=== PATIENT | male | born 1965 | race Caucasian/White ===

== ENCOUNTER 2017-03-05 11:37 | Inpatient (IN) | payer OTHER ==
[2017-03-05 12:28] VITALS: BMI 29.2
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
[2017-03-05] MEDS ORDERED: LOPERAMIDE HCL 2 MG CAPSULE PO PRN (17:07)
[2017-03-05] MEDS ORDERED: MENTHOL/PHENOL 1 EACH UD MM PRN (17:07)
[2017-03-05] MEDS ORDERED: hydrOXYzine PAMOATE 50 MG CAPSULE (FP) PO PRN (17:07)
[2017-03-05] MEDS ORDERED: MAG HYDROX/AL HYDROX/SIMETH 30 ML UNIT-DOSE CUP PO PRN (17:07)
[2017-03-05] MEDS ORDERED: IBUPROFEN 400 MG TABLET (FP) PO PRN (17:07)
[2017-03-05] MEDS ORDERED: MAGNESIUM CITRATE 300 ML BOTTLE PO PRN (17:07)
[2017-03-05] MEDS ORDERED: guaiFENesin/D-METHORPHAN HB 10 ML UNIT-DOSE CUPS PO PRN (17:07)
[2017-03-05] MEDS ORDERED: ACETAMINOPHEN 325 MG TABLET (FP) PO PRN (17:07)
[2017-03-05] MEDS ORDERED: MAGNESIUM HYDROX 2400MG/30ML ORAL SUSPENSION 30 ML CUP PO PRN (17:07)
[2017-03-05] MEDS ORDERED: chlordiazePOXIDE HCL 25 MG CAPSULE PO PRN (17:07)
[2017-03-05] MEDS ORDERED: P-EPHED 60MG/TRIPROLIDI 2.5MG TABLET PO PRN (17:07)
[2017-03-05] MEDS ORDERED: ALBUTEROL SO4 18 GM HFA INHALER IH PRN (17:09)
[2017-03-05] MEDS ORDERED: chlordiazePOXIDE HCL 25 MG CAPSULE PO ONE (17:30)
[2017-03-05] MEDS: LISINOPRIL 10 MG TABLET (FP) PO SCH (18:47)
[2017-03-05] MEDS: metFORMIN HCL 500 MG TABLET (FP) PO SCH (18:47)
[2017-03-05] MEDS: chlordiazePOXIDE HCL 25 MG CAPSULE PO SCH ×2 (18:50→22:33)
[2017-03-05 20:54] LABS: URINE APPEARANCE CLEAR; URINE BILIRUBIN NEGATIVE (NEGATIVE); URINE BLOOD 1+ (NEGATIVE); URINE COLOR LTYELLOW; URINE GLUCOSE (UA) NEGATIVE (NEGATIVE); URINE KETONE 2+ (NEGATIVE); URINE NITRITE NEGATIVE (NEGATIVE); URINE PROTEIN NEGATIVE (NEGATIVE); URINE UROBILINOGEN NEGATIVE mg/dL (0.2-1.0)
[2017-03-05 21:04] LABS: URINE MUCUS RARE; URINE RBC 1; URINE WBC 1
[2017-03-05] MEDS: THIAMINE HCL 100 MG TABLET (FP) PO SCH (22:32)
[2017-03-05] MEDS: BUDESONIDE/FORMETEROL FUMARATE 160/4.5 mcg INHALER IH SCH (22:34)
[2017-03-06 00:40] LABS: HIV 1 & 2 AB NEGATIVE; HIV 1 AGp24 NEGATIVE
[2017-03-06] MEDS: chlordiazePOXIDE HCL 25 MG CAPSULE PO SCH ×4 (05:07→22:30)
[2017-03-06] MEDS: metFORMIN HCL 500 MG TABLET (FP) PO SCH ×2 (07:30→17:25)
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
[2017-03-06 10:27] LABS: MCH 30.8 pg (25.7-33.7)
[2017-03-06 10:29] LABS: MCHC 33.2 g/dl (32.0-35.9); MEAN CELL VOLUME 92.7 fl (80-96); MEAN PLT VOLUME 8.1 fl (7.5-11.1); PLATELET COUNT 209 K/MM3 (134-434); RDW 15.9 % (11.9-15.9); WHITE BLOOD COUNT 5.8 K/mm3 (4.0-10.0)
[2017-03-06 10:53] LABS: ALBUMIN 3.7 g/dl (3.4-5.0); ALK PHOS 47 U/L (45-117); ANION GAP 12 (8-16); BILIRUBIN,TOTAL 0.8 mg/dL (0.2-1.0); CALCIUM 8.5 mg/dL (8.5-10.1); CO2 24 mmol/L (21-32); CREATININE 1.3 mg/dL (0.7-1.3); GLUCOSE,RANDOM 149 mg/dL (74-106); SGOT/AST 38 U/L (15-37); SGPT/ALT 25 U/L (12-78); TOT PROT 7.1 g/dl (6.4-8.2)
[2017-03-06] MEDS: PRENATAL VITAMINS W/ FOLIC ACID TABLET (FP) PO SCH (10:55)
[2017-03-06] MEDS: LISINOPRIL 10 MG TABLET (FP) PO SCH (10:55)
[2017-03-06] MEDS: BUDESONIDE/FORMETEROL FUMARATE 160/4.5 mcg INHALER IH SCH ×2 (10:57→22:31)
--- NOTE | 2017-03-06 15:25 | PN ---
[facility] CIWA - CIWA Score Nausea/Vomitin-No Nausea/No Vomiting Muscle Tremors: 4-Moderate,w/Arms Extend Anxiety: 4-Mod. Anxious/Guarded Agitation: 2 Paroxysmal Sweats: No Perspiration Orientation: 0-Oriented Tacttile Disturbances: 3-Moderate Itch/Numb/Burn Auditory Disturbances: 0-None Visual Disturbances: 3-Moderate Sensitivity Headache: 0-None Present CIWA-Ar Total Score: 16 S Progress Note (SOAP) Subjective: Tremors, Fatigue, Anxious. Objective: PT. A & O X 3, OBSERVED AMBULATING ON UNIT. NO ACUTE DISTRESS. 03/06/17 15:22 Vital Signs Temperature 97.5 F L 03/06/17 14:28 Pulse Rate 84 03/06/17 14:28 Respiratory Rate 18 03/06/17 14:28 Blood Pressure 107/75 03/06/17 14:28 O2 Sat by Pulse Oximetry (%) Laboratory Tests 03/05/17 03/05/17 03/05/17 13:06 14:00 19:00 WBC RBC Hgb Hct MCV MCH MCHC RDW Plt Count MPV Sodium Potassium Chloride Carbon Dioxide Anion Gap BUN Creatinine Creat Clearance w eGFR POC Glucometer 148 Random Glucose Calcium Total Bilirubin AST ALT Alkaline Phosphatase Total Protein Albumin Urine Color Ltyellow Urine Appearance Clear Urine pH 5.0 Ur Specific [place] 1.020 Urine Protein Negative Urine Glucose (UA) Negative Urine Ketones 2+ H Urine Blood 1+ H Urine Nitrite Negative Urine Bilirubin Negative Urine Urobilinogen Negative Urine WBC (Auto) 1 Urine RBC (Auto) 1 Ur Epithelial Cells Rare Urine Mucus Rare RPR Titer HIV 1&2 Antibody Screen Negative HIV P24 Antigen Negative 03/06/17 03/06/17 03/06/17 05:08 06:00 06:00 WBC 5.8 RBC 4.34 Hgb 13.4 Hct 40.3 MCV 92.7 MCH 30.8 MCHC 33.2 RDW 15.9 Plt Count 209 MPV 8.1 Sodium 138 Potassium 4.1 Chloride 102 Carbon Dioxide 24 Anion Gap 12 BUN 18 D Creatinine 1.3 Creat Clearance w eGFR 58.67 POC Glucometer 105 Random Glucose 149 H D Calcium 8.5 Total Bilirubin 0.8 D AST 38 H D ALT 25 Alkaline Phosphatase 47 Total Protein 7.1 Albumin 3.7 Urine Color Urine Appearance Urine pH Ur Specific [place] Urine Protein Urine Glucose (UA) Urine Ketones Urine Blood Urine Nitrite Urine Bilirubin Urine Urobilinogen Urine WBC (Auto) Urine RBC (Auto) Ur Epithelial Cells Urine Mucus RPR Titer HIV 1&2 Antibody Screen HIV P24 Antigen 03/06/17 06:00 WBC RBC Hgb Hct MCV MCH MCHC RDW Plt Count MPV Sodium Potassium Chloride Carbon Dioxide Anion Gap BUN Creatinine Creat Clearance w eGFR POC Glucometer Random Glucose Calcium Total Bilirubin AST ALT Alkaline Phosphatase Total Protein Albumin Urine Color Urine Appearance Urine pH Ur Specific [place] Urine Protein Urine Glucose (UA) Urine Ketones Urine Blood Urine Nitrite Urine Bilirubin Urine Urobilinogen Urine WBC (Auto) Urine RBC (Auto) Ur Epithelial Cells Urine Mucus RPR Titer Nonreactive HIV 1&2 Antibody Screen HIV P24 Antigen LABS NOTED. HCV AB RESULT PENDING. 03/06/17 15:24 Assessment: 03/06/17 15:23 WITHDRAWAL SYMPTOMS. Plan: CONTINUE DETOX. INCREASE DAILY PO FLUID INTAKE.
[2017-03-06 16:08] LABS: URINE LEUK ESTERASE Negative (NEGATIVE)
[2017-03-06] MEDS: THIAMINE HCL 100 MG TABLET (FP) PO SCH (22:31)
[2017-03-06] MEDS: QUEtiapine FUMARATE 50 MG TABLET PO SCH (22:31)
[2017-03-07] MEDS: chlordiazePOXIDE HCL 25 MG CAPSULE PO SCH ×2 (06:22→10:03)
[2017-03-07] MEDS: metFORMIN HCL 500 MG TABLET (FP) PO SCH ×2 (06:49→17:07)
[2017-03-07] MEDS: BUDESONIDE/FORMETEROL FUMARATE 160/4.5 mcg INHALER IH SCH ×2 (10:03→22:22)
[2017-03-07] MEDS: LISINOPRIL 10 MG TABLET (FP) PO SCH (10:03)
[2017-03-07] MEDS: PRENATAL VITAMINS W/ FOLIC ACID TABLET (FP) PO SCH (10:03)
--- NOTE | 2017-03-07 16:57 | PN ---
S CIWA - CIWA Score Nausea/Vomitin Muscle Tremors: 3 Anxiety: 3 Agitation: 2 Paroxysmal Sweats: 3 Orientation: 0-Oriented Tacttile Disturbances: 1-Very Mild Itch/Numbness Auditory Disturbances: 0-None Visual Disturbances: 0-None Headache: 2-Mild CIWA-Ar Total Score: 16 S Progress Note (SOAP) Subjective: Sweating, anxious, interrupted sleep Objective: 03/07/17 16:54 Last Vital Signs Temp Pulse Resp BP Pulse Ox 97.7 F 93 H 20 131/81 03/07/17 14:42 03/07/17 14:42 03/07/17 14:42 03/07/17 14:42 Laboratory Tests 03/05/17 03/05/17 03/05/17 13:06 14:00 19:00 WBC RBC Hgb Hct MCV MCH MCHC RDW Plt Count MPV Sodium Potassium Chloride Carbon Dioxide Anion Gap BUN Creatinine Creat Clearance w eGFR POC Glucometer 148 Random Glucose Calcium Total Bilirubin AST ALT Alkaline Phosphatase Total Protein Albumin Urine Color Ltyellow Urine Appearance Clear Urine pH 5.0 Ur Specific [place] 1.020 Urine Protein Negative Urine Glucose (UA) Negative Urine Ketones 2+ H Urine Blood 1+ H Urine Nitrite Negative Urine Bilirubin Negative Urine Urobilinogen Negative Ur Leukocyte Esterase Negative Urine WBC (Auto) 1 Urine RBC (Auto) 1 Ur Epithelial Cells Rare Urine Mucus Rare RPR Titer Hepatitis C Antibody HIV 1&2 Antibody Screen Negative HIV P24 Antigen Negative 03/06/17 03/06/17 03/06/17 05:08 06:00 06:00 WBC 5.8 RBC 4.34 Hgb 13.4 Hct 40.3 MCV 92.7 MCH 30.8 MCHC 33.2 RDW 15.9 Plt Count 209 MPV 8.1 Sodium Potassium Chloride Carbon Dioxide Anion Gap BUN Creatinine Creat Clearance w eGFR POC Glucometer 105 Random Glucose Calcium Total Bilirubin AST ALT Alkaline Phosphatase Total Protein Albumin Urine Color Urine Appearance Urine pH Ur Specific [place] Urine Protein Urine Glucose (UA) Urine Ketones Urine Blood Urine Nitrite Urine Bilirubin Urine Urobilinogen Ur Leukocyte Esterase Urine WBC (Auto) Urine RBC (Auto) Ur Epithelial Cells Urine Mucus RPR Titer Hepatitis C Antibody <0.1 HIV 1&2 Antibody Screen HIV P24 Antigen 03/06/17 03/06/17 03/06/17 06:00 06:00 16:40 WBC RBC Hgb Hct MCV MCH MCHC RDW Plt Count MPV Sodium 138 Potassium 4.1 Chloride 102 Carbon Dioxide 24 Anion Gap 12 BUN 18 D Creatinine 1.3 Creat Clearance w eGFR 58.67 POC Glucometer 93 Random Glucose 149 H D Calcium 8.5 Total Bilirubin 0.8 D AST 38 H D ALT 25 Alkaline Phosphatase 47 Total Protein 7.1 Albumin 3.7 Urine Color Urine Appearance Urine pH Ur Specific [place] Urine Protein Urine Glucose (UA) Urine Ketones Urine Blood Urine Nitrite Urine Bilirubin Urine Urobilinogen Ur Leukocyte Esterase Urine WBC (Auto) Urine RBC (Auto) Ur Epithelial Cells Urine Mucus RPR Titer Nonreactive Hepatitis C Antibody HIV 1&2 Antibody Screen HIV P24 Antigen 03/07/17 03/07/17 06:20 16:19 WBC RBC Hgb Hct MCV MCH MCHC RDW Plt Count MPV Sodium Potassium Chloride Carbon Dioxide Anion Gap BUN Creatinine Creat Clearance w eGFR POC Glucometer 130 104 Random Glucose Calcium Total Bilirubin AST ALT Alkaline Phosphatase Total Protein Albumin Urine Color Urine Appearance Urine pH Ur Specific [place] Urine Protein Urine Glucose (UA) Urine Ketones Urine Blood Urine Nitrite Urine Bilirubin Urine Urobilinogen Ur Leukocyte Esterase Urine WBC (Auto) Urine RBC (Auto) Ur Epithelial Cells Urine Mucus RPR Titer Hepatitis C Antibody HIV 1&2 Antibody Screen HIV P24 Antigen Labs noted: UA shows 1+ blood Assessment: 03/07/17 16:56 Withdrawal symptoms Noted with microscopic hematuria Plan: Continue detox Microscopic hematuria: encouraged to drink lots of water, repeat UA
[2017-03-07] MEDS: chlordiazePOXIDE 5 MG CAPSULE PO SCH ×2 (17:07→22:21)
[2017-03-07] MEDS ORDERED: QUEtiapine FUMARATE 25 MG TABLET (FP) ONE (21:06)
[2017-03-07] MEDS: THIAMINE HCL 100 MG TABLET (FP) PO SCH (22:21)
[2017-03-07] MEDS: QUEtiapine FUMARATE 50 MG TABLET PO SCH (22:21)
[2017-03-08] MEDS: chlordiazePOXIDE 5 MG CAPSULE PO SCH ×2 (06:08→10:17)
[2017-03-08] MEDS: metFORMIN HCL 500 MG TABLET (FP) PO SCH ×2 (06:08→17:31)
--- NOTE | 2017-03-08 09:30 | EKG ---
Test Reason : Blood Pressure : / mmHG Vent. Rate : 066 BPM Atrial Rate : 066 BPM P-R Int : 126 ms QRS Dur : 106 ms QT Int : 392 ms P-R-T Axes : 073 019 047 degrees QTc Int : 410 ms NORMAL SINUS RHYTHM INCOMPLETE RIGHT BUNDLE BRANCH BLOCK BORDERLINE ECG NO PREVIOUS ECGS AVAILABLE Confirmed by LEONEL STANLEY, KERRY ([id number]) on 03/08/2017 9:29:57 AM Referred By: Confirmed By:KERRY CASTANEAD MD
[2017-03-08] MEDS: PRENATAL VITAMINS W/ FOLIC ACID TABLET (FP) PO SCH (10:17)
[2017-03-08] MEDS: BUDESONIDE/FORMETEROL FUMARATE 160/4.5 mcg INHALER IH SCH ×2 (10:17→22:59)
[2017-03-08] MEDS: LISINOPRIL 10 MG TABLET (FP) PO SCH (10:17)
--- NOTE | 2017-03-08 11:05 | PN ---
[facility] Progress Note (SOAP) Subjective: TREMORS,ANXIETY,IRRITABILITY,SWEATS, FATIGUE. Objective: 03/08/17 11:04 Vital Signs Temperature 98 F 03/08/17 09:27 Pulse Rate 79 03/08/17 09:27 Respiratory Rate 18 03/08/17 09:27 Blood Pressure 124/81 03/08/17 09:27 O2 Sat by Pulse Oximetry (%) Laboratory Last Values WBC 5.8 K/mm3 (4.0-10.0) 03/06/17 06:00 RBC 4.34 M/mm3 (4.00-5.60) 03/06/17 06:00 Hgb 13.4 GM/dL (11.7-16.9) 03/06/17 06:00 Hct 40.3 % (35.4-49) 03/06/17 06:00 MCV 92.7 fl (80-96) 03/06/17 06:00 MCH 30.8 pg (25.7-33.7) 03/06/17 06:00 MCHC 33.2 g/dl (32.0-35.9) 03/06/17 06:00 RDW 15.9 % (11.9-15.9) 03/06/17 06:00 Plt Count 209 K/MM3 (134-434) 03/06/17 06:00 MPV 8.1 fl (7.5-11.1) 03/06/17 06:00 Sodium 138 mmol/L (136-145) 03/06/17 06:00 Potassium 4.1 mmol/L (3.5-5.1) 03/06/17 06:00 Chloride 102 mmol/L (98-107) 03/06/17 06:00 Carbon Dioxide 24 mmol/L (21-32) 03/06/17 06:00 Anion Gap 12 (8-16) 03/06/17 06:00 BUN 18 mg/dL (7-18) D 03/06/17 06:00 Creatinine 1.3 mg/dL (0.7-1.3) 03/06/17 06:00 Creat Clearance w eGFR 58.67 (>60) 03/06/17 06:00 POC Glucometer 124 UNITS (80-120) 03/08/17 06:08 Random Glucose 149 mg/dL (74-106) H D 03/06/17 06:00 Calcium 8.5 mg/dL (8.5-10.1) 03/06/17 06:00 Total Bilirubin 0.8 mg/dL (0.2-1.0) D 03/06/17 06:00 AST 38 U/L (15-37) H D 03/06/17 06:00 ALT 25 U/L (12-78) 03/06/17 06:00 Alkaline Phosphatase 47 U/L (45-117) 03/06/17 06:00 Total Protein 7.1 g/dl (6.4-8.2) 03/06/17 06:00 Albumin 3.7 g/dl (3.4-5.0) 03/06/17 06:00 Urine Color Ltyellow 03/05/17 19:00 Urine Appearance Clear 03/05/17 19:00 Urine pH 5.0 (5.0-8.0) 03/05/17 19:00 Ur Specific [place] 1.020 (1.001-1.035) 03/05/17 19:00 Urine Protein Negative (NEGATIVE) 03/05/17 19:00 Urine Glucose (UA) Negative (NEGATIVE) 03/05/17 19:00 Urine Ketones 2+ (NEGATIVE) H 03/05/17 19:00 Urine Blood 1+ (NEGATIVE) H 03/05/17 19:00 Urine Nitrite Negative (NEGATIVE) 03/05/17 19:00 Urine Bilirubin Negative (NEGATIVE) 03/05/17 19:00 Urine Urobilinogen Negative mg/dL (0.2-1.0) 03/05/17 19:00 Ur Leukocyte Esterase Negative (NEGATIVE) 03/05/17 19:00 Urine WBC (Auto) 1 03/05/17 19:00 Urine RBC (Auto) 1 03/05/17 19:00 Ur Epithelial Cells Rare /hpf (FEW) 03/05/17 19:00 Urine Mucus Rare 03/05/17 19:00 RPR Titer Nonreactive (NONREACTIVE) 03/06/17 06:00 Hepatitis C Antibody <0.1 s/co ratio (0.0-0.9) 03/06/17 06:00 HIV 1&2 Antibody Screen Negative 03/05/17 14:00 HIV P24 Antigen Negative 03/05/17 14:00 Assessment: 03/08/17 11:04 WITHDRAWAL SX Plan: WITHDRAWAL SX
[2017-03-08 12:08] LABS: URINE APPEARANCE CLEAR; URINE BILIRUBIN NEGATIVE (NEGATIVE); URINE BLOOD NEGATIVE (NEGATIVE); URINE COLOR LTYELLOW; URINE GLUCOSE (UA) NEGATIVE (NEGATIVE); URINE KETONE NEGATIVE (NEGATIVE); URINE NITRITE NEGATIVE (NEGATIVE); URINE PROTEIN NEGATIVE (NEGATIVE); URINE UROBILINOGEN NEGATIVE mg/dL (0.2-1.0)
[2017-03-08] MEDS: chlordiazePOXIDE HCL 10 MG CAPSULE PO SCH ×2 (17:31→23:00)
[2017-03-08 17:37] LABS: URINE LEUK ESTERASE Negative (NEGATIVE)
[2017-03-08 22:08] VITALS: TEMP 96.8
[2017-03-08] MEDS: THIAMINE HCL 100 MG TABLET (FP) PO SCH (22:59)
[2017-03-08] MEDS: QUEtiapine FUMARATE 50 MG TABLET PO SCH (22:59)
[2017-03-09] MEDS: chlordiazePOXIDE HCL 10 MG CAPSULE PO SCH (06:01)
[2017-03-09 06:30] VITALS: BP 99/63; PULSE 76
[2017-03-09] MEDS: metFORMIN HCL 500 MG TABLET (FP) PO SCH (07:52)
--- NOTE | 2017-03-09 09:07 | DS ---
[facility] Detox Discharge Summary Admission Date: 03/05/17 Discharge Date: 03/09/17 - History Present History: Alcohol Dependence, Cocaine Dependence Additional Comments: PT COMPLETED DETOX. ALERT O X 3. NAD. PT TO FOLLOW UP WITH PCP FOR MANAGEMENT OF HIS COMORBID CONDITIONS. Pertinent Past History: HTN HYPERCHOLESTEROLEMIA DM ASTHMA - Physical Exam Results Vital Signs: Vital Signs Temperature 96.8 F L 03/09/17 06:29 Pulse Rate 76 03/09/17 06:29 Respiratory Rate 16 03/09/17 06:29 Blood Pressure 99/63 03/09/17 06:29 O2 Sat by Pulse Oximetry (%) Pertinent Admission Physical Exam Findings: WITHDRAWAL SX - Treatment Hospital Course: Detox Protocol Followed, Detoxed Safely, Responded well, Discharged Condition Good, Rehab Referral Accepted Patient has Accepted a Rehab Referral to: [facility] - Medication Discharge Medications: Ambulatory Orders Budesonide/Formeterol Fumarate [SYMBICORT 160/4.5mcg -] 1 inh PO BID #1 inhaler 12/13/15 Albuterol Sulfate [Proventil HFA Inhaler -] 2 inh PO QID PRN 03/05/17 Lisinopril 10 mg PO DAILY #30 tablet 03/09/17 Metformin HCl [Glucophage -] 500 mg PO BID #60 tablet 03/09/17 - Diagnosis (1) Alcohol dependence with uncomplicated withdrawal Status: Acute (2) Cocaine dependence, uncomplicated Status: Acute (3) DM Diabetes mellitus type 2 Status: Chronic (4) Essential hypertension Status: Chronic (5) Hypercholesterolemia Status: Chronic (6) Asthma Status: Chronic - AMA Did Patient Leave Against Medical Advice: No
== END 2017-03-09 10:58 | disposition home or self-care (01) | DRG 774 ==
LOC: YASAS 11:37 → Y3N 14:27
PROVIDERS: ADMIT Internal Medicine; ATTEND Internal Medicine
PROC: HZ2ZZZZ Detoxification Services for Substance Abuse Treatment (ICD-10-PCS; principal; 2017-03-05)
DX: F10.230 Alcohol dependence with withdrawal, uncomplicated (principal); F14.20 Cocaine dependence, uncomplicated; F33.9 Major depressive disorder, recurrent, unspecified; F19.24 Other psychoactive substance dependence with psychoactive substance-induced mood disorder; F19.282 Other psychoactive substance dependence with psychoactive substance-induced sleep disorder; I10 Essential (primary) hypertension; E78.00 Pure hypercholesterolemia, unspecified; E11.9 Type 2 diabetes mellitus without complications; Z79.84 Long term (current) use of oral hypoglycemic drugs; Z91.5 Personal history of self-harm; Z87.828 Personal history of other (healed) physical injury and trauma
CPT/HCPCS: 36415; 80053; 81003; 81015; 85027; 86593; 86803; 87389; 93005; 93010

== ENCOUNTER 2018-01-29 09:00 | Inpatient (IN) | payer OTHER ==
[2018-01-29 09:40] VITALS: BMI 29.0
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
[2018-01-29] MEDS ORDERED: MENTHOL/PHENOL 1 EACH UD MM PRN (10:27)
[2018-01-29] MEDS ORDERED: MAGNESIUM CITRATE 300 ML BOTTLE PO PRN (10:27)
[2018-01-29] MEDS ORDERED: chlordiazePOXIDE HCL 25 MG CAPSULE PO PRN (10:27)
[2018-01-29] MEDS ORDERED: MAG HYDROX/AL HYDROX/SIMETH 30 ML UNIT-DOSE CUP PO PRN (10:27)
[2018-01-29] MEDS ORDERED: LOPERAMIDE HCL 2 MG CAPSULE PO PRN (10:27)
[2018-01-29] MEDS ORDERED: ACETAMINOPHEN 325 MG TABLET (FP) PO PRN (10:27)
[2018-01-29] MEDS ORDERED: hydrOXYzine PAMOATE 25 MG CAPSULE (FP) PO PRN (10:27)
[2018-01-29] MEDS ORDERED: guaiFENesin/D-METHORPHAN HB 10 ML UNIT-DOSE CUPS PO PRN (10:27)
[2018-01-29] MEDS ORDERED: IBUPROFEN 400 MG TABLET (FP) PO PRN (10:27)
[2018-01-29] MEDS ORDERED: MAGNESIUM HYDROX 2400MG/30ML ORAL SUSPENSION 30 ML CUP PO PRN (10:27)
[2018-01-29] MEDS ORDERED: P-EPHED 60MG/TRIPROLIDI 2.5MG TABLET PO PRN (10:27)
[2018-01-29] MEDS ORDERED: ALBUTEROL SO4 8 GM HFA INHALER IH PRN (10:32)
[2018-01-29] MEDS ORDERED: chlordiazePOXIDE HCL 25 MG CAPSULE PO ONE (12:45)
[2018-01-29] MEDS: BUDESONIDE/FORMETEROL FUMARATE 160/4.5 mcg INHALER IH SCH ×2 (13:56→22:22)
[2018-01-29] MEDS: metFORMIN HCL 500 MG TABLET (FP) PO SCH (17:37)
[2018-01-29] MEDS: chlordiazePOXIDE HCL 25 MG CAPSULE PO SCH ×2 (17:37→22:21)
[2018-01-29 18:56] LABS: URINE APPEARANCE TURBID; URINE BILIRUBIN NEGATIVE (<2.0 mg/dL); URINE COLOR YELLOW; URINE GLUCOSE (UA) NEGATIVE (NEGATIVE); URINE KETONE NEGATIVE (NEGATIVE); URINE LEUK ESTERASE NEGATIVE (NEGATIVE); URINE NITRITE NEGATIVE (NEGATIVE); URINE PROTEIN NEGATIVE (NEGATIVE); URINE UROBILINOGEN NEGATIVE mg/dL (0.2-1.0)
[2018-01-29 19:14] LABS: CALCIUM OXALATE CRYSTALS RARE /hpf (NONE SEEN); URINE HYALINE CAST 9 /lpf
[2018-01-29] MEDS ORDERED: MELATONIN 5 MG TABLETS PO PRN (22:00)
[2018-01-29] MEDS: ATORVASTATIN CA 10 MG TABLET (FP) PO SCH (22:21)
[2018-01-29] MEDS: THIAMINE HCL 100 MG TABLET (FP) PO SCH (22:21)
[2018-01-30] MEDS: chlordiazePOXIDE HCL 25 MG CAPSULE PO SCH ×4 (05:13→22:25)
[2018-01-30] MEDS: metFORMIN HCL 500 MG TABLET (FP) PO SCH ×2 (06:44→17:53)
--- NOTE | 2018-01-30 10:50 | EKG ---
Test Reason : Blood Pressure : / mmHG Vent. Rate : 059 BPM Atrial Rate : 059 BPM P-R Int : 124 ms QRS Dur : 102 ms QT Int : 404 ms P-R-T Axes : 074 013 039 degrees QTc Int : 399 ms SINUS BRADYCARDIA INCOMPLETE RIGHT BUNDLE BRANCH BLOCK WHEN COMPARED WITH ECG OF 05-MAR-2017 19:41, NO SIGNIFICANT CHANGE WAS FOUND Confirmed by JUS SANTILLAN MD ([id number]) on 01/30/2018 10:49:38 AM Referred By: Lena Salas Confirmed By:JUS SANTILLAN MD
[2018-01-30] MEDS: BUDESONIDE/FORMETEROL FUMARATE 160/4.5 mcg INHALER IH SCH ×2 (11:04→22:26)
[2018-01-30] MEDS: PRENATAL VITAMINS W/ FOLIC ACID TABLET (FP) PO SCH (11:04)
[2018-01-30] MEDS: LISINOPRIL 10 MG TABLET (FP) PO SCH (11:04)
[2018-01-30 11:10] LABS: HEMATOCRIT 38.8 % (35.4-49); HEMOGLOBIN 12.9 GM/dL (11.7-16.9); MCH 29.9 pg (25.7-33.7); MCHC 33.2 g/dl (32.0-35.9); MEAN CELL VOLUME 90.2 fl (80-96); MEAN PLT VOLUME 8.3 fl (7.5-11.1); PLATELET COUNT 206 K/MM3 (134-434); RDW 14.5 % (11.9-15.9); WHITE BLOOD COUNT 4.9 K/mm3 (4.0-10.0)
[2018-01-30 11:35] LABS: ALBUMIN 3.2 g/dl (3.4-5.0); ALK PHOS 61 U/L (45-117); ANION GAP 4 MMOL/L (8-16); BILIRUBIN,TOTAL 0.2 mg/dL (0.2-1); BLOOD UREA NITROGEN 18 mg/dL (7-18); CALCIUM 8.7 mg/dL (8.5-10.1); CHLORIDE 110 mmol/L (98-107); CO2 28 mmol/L (21-32); CREATININE 1.2 mg/dL (0.55-1.3); GLUCOSE,RANDOM 80 mg/dL (74-106); SGOT/AST 15 U/L (15-37); SGPT/ALT 19 U/L (13-61); SODIUM 142 mmol/L (136-145); TOT PROT 6.4 g/dl (6.4-8.2)
--- NOTE | 2018-01-30 13:35 | PN ---
S CIWA - CIWA Score Nausea/Vomitin Muscle Tremors: 4-Moderate,w/Arms Extend Anxiety: 4-Mod. Anxious/Guarded Agitation: 4-Moderately Restless Paroxysmal Sweats: 3 Orientation: 0-Oriented Tacttile Disturbances: 0-None Auditory Disturbances: 0-None Visual Disturbances: 0-None Headache: 0-None Present CIWA-Ar Total Score: 18 BHS Progress Note (SOAP) Subjective: Sweating, interrupted sleep Objective: 01/30/18 13:32 Last Vital Signs Temp Pulse Resp BP Pulse Ox 97.9 F 76 18 110/69 01/30/18 09:30 01/30/18 09:30 01/30/18 09:30 01/30/18 09:30 Laboratory Tests 01/29/18 01/29/18 01/29/18 09:51 14:27 16:08 WBC RBC Hgb Hct MCV MCH MCHC RDW Plt Count MPV Sodium Potassium Chloride Carbon Dioxide Anion Gap BUN Creatinine Creat Clearance w eGFR POC Glucometer 85 108 Random Glucose Calcium Total Bilirubin AST ALT Alkaline Phosphatase Total Protein Albumin Urine Color Yellow Urine Appearance Turbid Urine pH 5.0 Ur Specific [place] 1.032 Urine Protein Negative Urine Glucose (UA) Negative Urine Ketones Negative Urine Blood 1+ H Urine Nitrite Negative Urine Bilirubin Negative Urine Urobilinogen Negative Ur Leukocyte Esterase Negative Urine WBC (Auto) 9 Urine RBC (Auto) None Calcium Oxalate Crystal Rare Hyaline Casts 9 RPR Titer 01/30/18 01/30/18 01/30/18 05:15 07:30 07:30 WBC 4.9 RBC 4.30 Hgb 12.9 Hct 38.8 MCV 90.2 MCH 29.9 MCHC 33.2 RDW 14.5 Plt Count 206 MPV 8.3 Sodium 142 Potassium 4.0 Chloride 110 H Carbon Dioxide 28 Anion Gap 4 L BUN 18 Creatinine 1.2 Creat Clearance w eGFR > 60 POC Glucometer 113 Random Glucose 80 Calcium 8.7 Total Bilirubin 0.2 AST 15 ALT 19 Alkaline Phosphatase 61 Total Protein 6.4 Albumin 3.2 L Urine Color Urine Appearance Urine pH Ur Specific [place] Urine Protein Urine Glucose (UA) Urine Ketones Urine Blood Urine Nitrite Urine Bilirubin Urine Urobilinogen Ur Leukocyte Esterase Urine WBC (Auto) Urine RBC (Auto) Calcium Oxalate Crystal Hyaline Casts RPR Titer 01/30/18 07:30 WBC RBC Hgb Hct MCV MCH MCHC RDW Plt Count MPV Sodium Potassium Chloride Carbon Dioxide Anion Gap BUN Creatinine Creat Clearance w eGFR POC Glucometer Random Glucose Calcium Total Bilirubin AST ALT Alkaline Phosphatase Total Protein Albumin Urine Color Urine Appearance Urine pH Ur Specific [place] Urine Protein Urine Glucose (UA) Urine Ketones Urine Blood Urine Nitrite Urine Bilirubin Urine Urobilinogen Ur Leukocyte Esterase Urine WBC (Auto) Urine RBC (Auto) Calcium Oxalate Crystal Hyaline Casts RPR Titer Nonreactive Labs reviewed: UA 1+ blood Assessment: 01/30/18 13:33 Withdrawal sxs Noted with microscopic hematuria Plan: Continue detox Microscopic hematuria: encouraged PO water intake, repeat UA
[2018-01-30] MEDS ORDERED: ALBUTEROL SO4 8 GM HFA INHALER IH PRN (13:37)
[2018-01-30] MEDS: ATORVASTATIN CA 10 MG TABLET (FP) PO SCH (22:25)
[2018-01-30] MEDS: THIAMINE HCL 100 MG TABLET (FP) PO SCH (22:25)
[2018-01-31] MEDS: chlordiazePOXIDE HCL 25 MG CAPSULE PO SCH ×2 (05:16→10:23)
[2018-01-31] MEDS: metFORMIN HCL 500 MG TABLET (FP) PO SCH ×2 (06:29→17:30)
--- NOTE | 2018-01-31 10:12 | PN ---
S CIWA - CIWA Score Nausea/Vomitin-Mild Nausea/No Vomiting Muscle Tremors: 2 Anxiety: 3 Agitation: 3 Paroxysmal Sweats: 2 Orientation: 0-Oriented Tacttile Disturbances: 1-Very Mild Itch/Numbness Auditory Disturbances: 0-None Visual Disturbances: 0-None Headache: 1-Very Mild CIWA-Ar Total Score: 13 S Progress Note (SOAP) Objective: 01/31/18 10:12 Vital Signs Temperature 97.6 F 01/31/18 09:10 Pulse Rate 64 01/31/18 09:10 Respiratory Rate 18 01/31/18 09:10 Blood Pressure 94/60 01/31/18 09:10 O2 Sat by Pulse Oximetry (%) Laboratory Last Values WBC 4.9 K/mm3 (4.0-10.0) 01/30/18 07:30 RBC 4.30 M/mm3 (4.00-5.60) 01/30/18 07:30 Hgb 12.9 GM/dL (11.7-16.9) 01/30/18 07:30 Hct 38.8 % (35.4-49) 01/30/18 07:30 MCV 90.2 fl (80-96) 01/30/18 07:30 MCH 29.9 pg (25.7-33.7) 01/30/18 07:30 MCHC 33.2 g/dl (32.0-35.9) 01/30/18 07:30 RDW 14.5 % (11.9-15.9) 01/30/18 07:30 Plt Count 206 K/MM3 (134-434) 01/30/18 07:30 MPV 8.3 fl (7.5-11.1) 01/30/18 07:30 Sodium 142 mmol/L (136-145) 01/30/18 07:30 Potassium 4.0 mmol/L (3.5-5.1) 01/30/18 07:30 Chloride 110 mmol/L (98-107) H 01/30/18 07:30 Carbon Dioxide 28 mmol/L (21-32) 01/30/18 07:30 Anion Gap 4 MMOL/L (8-16) L 01/30/18 07:30 BUN 18 mg/dL (7-18) 01/30/18 07:30 Creatinine 1.2 mg/dL (0.55-1.3) 01/30/18 07:30 Creat Clearance w eGFR > 60 (>60) 01/30/18 07:30 POC Glucometer 108 UNITS (80-120) 01/31/18 05:15 Random Glucose 80 mg/dL (74-106) 01/30/18 07:30 Calcium 8.7 mg/dL (8.5-10.1) 01/30/18 07:30 Total Bilirubin 0.2 mg/dL (0.2-1) 01/30/18 07:30 AST 15 U/L (15-37) 01/30/18 07:30 ALT 19 U/L (13-61) 01/30/18 07:30 Alkaline Phosphatase 61 U/L (45-117) 01/30/18 07:30 Total Protein 6.4 g/dl (6.4-8.2) 01/30/18 07:30 Albumin 3.2 g/dl (3.4-5.0) L 01/30/18 07:30 Urine Color Yellow 01/29/18 14:27 Urine Appearance Turbid 01/29/18 14:27 Urine pH 5.0 (5.0-8.0) 01/29/18 14:27 Ur Specific [place] 1.032 (1.010-1.035) 01/29/18 14:27 Urine Protein Negative (NEGATIVE) 01/29/18 14:27 Urine Glucose (UA) Negative (NEGATIVE) 01/29/18 14:27 Urine Ketones Negative (NEGATIVE) 01/29/18 14:27 Urine Blood 1+ (NEGATIVE) H 01/29/18 14:27 Urine Nitrite Negative (NEGATIVE) 01/29/18 14:27 Urine Bilirubin Negative (<2.0 mg/dL) 01/29/18 14:27 Urine Urobilinogen Negative mg/dL (0.2-1.0) 01/29/18 14:27 Ur Leukocyte Esterase Negative (NEGATIVE) 01/29/18 14:27 Urine WBC (Auto) 9 /hpf (3-5) 01/29/18 14:27 Urine RBC (Auto) None /hpf (0-3) 01/29/18 14:27 Calcium Oxalate Crystal Rare /hpf (NONE SEEN) 01/29/18 14:27 Hyaline Casts 9 /lpf 01/29/18 14:27 RPR Titer Nonreactive (NONREACTIVE) 01/30/18 07:30
[2018-01-31] MEDS: PRENATAL VITAMINS W/ FOLIC ACID TABLET (FP) PO SCH (10:22)
[2018-01-31] MEDS: BUDESONIDE/FORMETEROL FUMARATE 160/4.5 mcg INHALER IH SCH ×2 (10:23→23:47)
[2018-01-31] MEDS: LISINOPRIL 10 MG TABLET (FP) PO SCH (10:23)
[2018-01-31 10:24] LABS: URINE APPEARANCE CLEAR; URINE BILIRUBIN NEGATIVE (<2.0 mg/dL); URINE COLOR LTYELLOW; URINE GLUCOSE (UA) NEGATIVE (NEGATIVE); URINE KETONE NEGATIVE (NEGATIVE); URINE LEUK ESTERASE NEGATIVE (NEGATIVE); URINE NITRITE NEGATIVE (NEGATIVE); URINE PROTEIN NEGATIVE (NEGATIVE); URINE UROBILINOGEN NEGATIVE mg/dL (0.2-1.0)
--- NOTE | 2018-01-31 12:53 | PN ---
[facility] Progress Note Note: Vital Signs Temperature 97.6 F 01/31/18 09:10 Pulse Rate 64 01/31/18 09:10 Respiratory Rate 18 01/31/18 09:10 Blood Pressure 94/60 01/31/18 09:10 O2 Sat by Pulse Oximetry (%) Laboratory Last Values WBC 4.9 K/mm3 (4.0-10.0) 01/30/18 07:30 RBC 4.30 M/mm3 (4.00-5.60) 01/30/18 07:30 Hgb 12.9 GM/dL (11.7-16.9) 01/30/18 07:30 Hct 38.8 % (35.4-49) 01/30/18 07:30 MCV 90.2 fl (80-96) 01/30/18 07:30 MCH 29.9 pg (25.7-33.7) 01/30/18 07:30 MCHC 33.2 g/dl (32.0-35.9) 01/30/18 07:30 RDW 14.5 % (11.9-15.9) 01/30/18 07:30 Plt Count 206 K/MM3 (134-434) 01/30/18 07:30 MPV 8.3 fl (7.5-11.1) 01/30/18 07:30 Sodium 142 mmol/L (136-145) 01/30/18 07:30 Potassium 4.0 mmol/L (3.5-5.1) 01/30/18 07:30 Chloride 110 mmol/L (98-107) H 01/30/18 07:30 Carbon Dioxide 28 mmol/L (21-32) 01/30/18 07:30 Anion Gap 4 MMOL/L (8-16) L 01/30/18 07:30 BUN 18 mg/dL (7-18) 01/30/18 07:30 Creatinine 1.2 mg/dL (0.55-1.3) 01/30/18 07:30 Creat Clearance w eGFR > 60 (>60) 01/30/18 07:30 POC Glucometer 108 UNITS (80-120) 01/31/18 05:15 Random Glucose 80 mg/dL (74-106) 01/30/18 07:30 Calcium 8.7 mg/dL (8.5-10.1) 01/30/18 07:30 Total Bilirubin 0.2 mg/dL (0.2-1) 01/30/18 07:30 AST 15 U/L (15-37) 01/30/18 07:30 ALT 19 U/L (13-61) 01/30/18 07:30 Alkaline Phosphatase 61 U/L (45-117) 01/30/18 07:30 Total Protein 6.4 g/dl (6.4-8.2) 01/30/18 07:30 Albumin 3.2 g/dl (3.4-5.0) L 01/30/18 07:30 Urine Color [place] 01/31/18 06:17 Urine Appearance Clear 01/31/18 06:17 Urine pH 6.0 (5.0-8.0) 01/31/18 06:17 Ur Specific [place] 1.024 (1.010-1.035) 01/31/18 06:17 Urine Protein Negative (NEGATIVE) 01/31/18 06:17 Urine Glucose (UA) Negative (NEGATIVE) 01/31/18 06:17 Urine Ketones Negative (NEGATIVE) 01/31/18 06:17 Urine Blood Negative (NEGATIVE) 01/31/18 06:17 Urine Nitrite Negative (NEGATIVE) 01/31/18 06:17 Urine Bilirubin Negative (<2.0 mg/dL) 01/31/18 06:17 Urine Urobilinogen Negative mg/dL (0.2-1.0) 01/31/18 06:17 Ur Leukocyte Esterase Negative (NEGATIVE) 01/31/18 06:17 Urine WBC (Auto) 9 /hpf (3-5) 01/29/18 14:27 Urine RBC (Auto) None /hpf (0-3) 01/29/18 14:27 Calcium Oxalate Crystal Rare /hpf (NONE SEEN) 01/29/18 14:27 Hyaline Casts 9 /lpf 01/29/18 14:27 RPR Titer Nonreactive (NONREACTIVE) 01/30/18 07:30 c/o anxious, interrupted sleep, chills Aox3 no distress, irritable no adventitious breath sounds full ROM ambulating in the unit withdrawal symptoms increase fluids continue detox continue to monitor
[2018-01-31] MEDS: chlordiazePOXIDE 5 MG CAPSULE PO SCH (17:52)
[2018-01-31] MEDS: THIAMINE HCL 100 MG TABLET (FP) PO SCH (23:47)
[2018-01-31] MEDS: ATORVASTATIN CA 10 MG TABLET (FP) PO SCH (23:47)
[2018-02-01] MEDS: chlordiazePOXIDE 5 MG CAPSULE PO SCH ×3 (00:08→10:02)
[2018-02-01] MEDS: metFORMIN HCL 500 MG TABLET (FP) PO SCH ×2 (06:20→17:35)
[2018-02-01] MEDS: PRENATAL VITAMINS W/ FOLIC ACID TABLET (FP) PO SCH (10:01)
[2018-02-01] MEDS: LISINOPRIL 10 MG TABLET (FP) PO SCH (10:02)
[2018-02-01] MEDS: BUDESONIDE/FORMETEROL FUMARATE 160/4.5 mcg INHALER IH SCH ×2 (10:02→22:23)
--- NOTE | 2018-02-01 10:49 | PN ---
BHS Progress Note (SOAP) Subjective: PATIENT CONTINUES WITH DETOX REGIMEN. STATES HE FEELS BETTER. Objective: 02/01/18 10:47 Vital Signs Temperature 97.2 F L 02/01/18 09:30 Pulse Rate 75 02/01/18 09:30 Respiratory Rate 18 02/01/18 09:30 Blood Pressure 101/65 02/01/18 09:30 O2 Sat by Pulse Oximetry (%) PE SKIN WARM AND DRY CAR S1S2 RESP CTA BL EXT FULL ROM Assessment: 02/01/18 10:48 WITHDRAWAL SYNDROME Plan: CONTINUE DETOX ORDERED CONTINUE ORAL FLUIDS CONTINUE TO MONITOR CLINICALLY
[2018-02-01] MEDS: chlordiazePOXIDE HCL 10 MG CAPSULE PO SCH ×2 (17:35→22:23)
[2018-02-01] MEDS: ATORVASTATIN CA 10 MG TABLET (FP) PO SCH (22:23)
[2018-02-01] MEDS: THIAMINE HCL 100 MG TABLET (FP) PO SCH (22:23)
[2018-02-02 06:15] VITALS: BP 100/65; PULSE 74; TEMP 98.6
[2018-02-02] MEDS: metFORMIN HCL 500 MG TABLET (FP) PO SCH (06:22)
[2018-02-02] MEDS: chlordiazePOXIDE HCL 10 MG CAPSULE PO SCH (06:22)
--- NOTE | 2018-02-02 10:53 | DS ---
[facility] Detox Discharge Summary Admission Date: 01/29/18 Discharge Date: 02/02/18 - History Present History: Alcohol Dependence - Physical Exam Results Vital Signs: Vital Signs Temperature 98.6 F 02/02/18 06:14 Pulse Rate 74 02/02/18 06:14 Respiratory Rate 18 02/02/18 06:14 Blood Pressure 100/65 02/02/18 06:14 O2 Sat by Pulse Oximetry (%) Pertinent Admission Physical Exam Findings: PATIENT TOLERATED DETOX REGIMEN WITHOUT ADVERSE EVENT. DISCHARGED TODAY. CLINICALLY STABLE. ALERT AND ORIENTED X 3, SKIN WARM AND DRY, AMB AD HIRAM. DENIES SI/HI. PATIENT ENCOURAGED TO ATTEND GROUP MEETINGS TO PREVENT RELAPSE AND TO SEEK MEDICAL ATTENTION IF WITHDRAWAL SYMPTOMS OCCUR. DISCHARGE INSTRUCTIONS PROVIDED TO PATIENT BY STAFF. - Treatment Hospital Course: Detox Protocol Followed, Detoxed Safely, Responded well, Discharged Condition Good - Medication Discharge Medications: Ambulatory Orders metFORMIN HCL [Glucophage -] 500 mg PO BID #60 tablet 03/09/17 Quetiapine Fumarate "Xr" [Seroquel Xr -] 150 mg PO HS 01/29/18 traZODone HCL [Trazodone HCl] 100 mg PO HS 01/29/18 Albuterol Sulfate [Proventil HFA Inhaler -] 2 inh PO QID PRN #1 hfa.aer.ad 02/01 Atorvastatin Ca [Lipitor] 10 mg PO HS #30 tablet 02/01/18 Budesonide/Formeterol Fumarate [SYMBICORT 160/4.5mcg -] 1 inh PO BID #1 inhaler 02/01/18 Lisinopril 10 mg PO DAILY #30 tablet 02/01/18 metFORMIN HCL [Glucophage -] 500 mg PO BIDAC #60 tablet 02/01/18 - Diagnosis (1) Alcohol dependence with uncomplicated withdrawal Status: Resolved - AMA Did Patient Leave Against Medical Advice: No
== END 2018-02-02 08:38 | disposition home or self-care (01) | DRG 774 ==
LOC: YASAS 09:00 → Y3N 12:37
PROC: HZ2ZZZZ Detoxification Services for Substance Abuse Treatment (ICD-10-PCS; principal; 2018-01-29)
DX: F10.230 Alcohol dependence with withdrawal, uncomplicated (principal); F14.20 Cocaine dependence, uncomplicated; I10 Essential (primary) hypertension; R78.5 Finding of other psychotropic drug in blood; J45.909 Unspecified asthma, uncomplicated; E78.00 Pure hypercholesterolemia, unspecified; R31.29 Other microscopic hematuria; Z79.84 Long term (current) use of oral hypoglycemic drugs; Z91.14 Patient's other noncompliance with medication regimen; Z91.5 Personal history of self-harm
CPT/HCPCS: 36415; 80053; 81003; 81015; 82962; 85027; 86593; 93005; 93010

== ENCOUNTER 2018-09-05 12:37 | Inpatient (IN) | payer OTHER ==
[2018-09-05 14:37] VITALS: BMI 30.1
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
[2018-09-05] MEDS ORDERED: chlordiazePOXIDE HCL 25 MG CAPSULE PO PRN (17:54)
[2018-09-05] MEDS ORDERED: PROCHLORPERAZINE MALEATE 5 MG TABLET PO PRN (17:54)
[2018-09-05] MEDS ORDERED: METHOCARBAMOL 500 MG TABLET PO PRN (17:54)
[2018-09-05] MEDS ORDERED: BISMUTH SUBSALICYLATE 524 MG/30 ML UD PO PRN (17:54)
[2018-09-05] MEDS ORDERED: MAG HYDROX/AL HYDROX/SIMETH 30 ML UNIT-DOSE CUP PO PRN (17:54)
[2018-09-05] MEDS ORDERED: IBUPROFEN 400 MG TABLET (FP) PO PRN (17:54)
[2018-09-05] MEDS ORDERED: MAGNESIUM CITRATE 300 ML BOTTLE PO PRN (17:54)
[2018-09-05] MEDS ORDERED: ACETAMINOPHEN 325 MG TABLET (FP) PO PRN ×2 (17:54)
[2018-09-05] MEDS ORDERED: MENTHOL/PHENOL 1 EACH UD MM PRN (17:54)
[2018-09-05] MEDS ORDERED: MAGNESIUM HYDROX 2400MG/30ML ORAL SUSPENSION 30 ML CUP PO PRN (17:54)
[2018-09-05] MEDS ORDERED: chlordiazePOXIDE HCL 25 MG CAPSULE PO ONE (18:30)
[2018-09-05] MEDS: guaiFENesin 200 MG/10 ML 10 ML UNIT-DOSE CUPS PO SCH (18:59)
[2018-09-05] MEDS ORDERED: ALBUTEROL SO4 0.083% IH SOL 2.5 MG/3 ML VIAL.NEB. NEB PRN (20:26)
[2018-09-05] MEDS: ATORVASTATIN CA 10 MG TABLET (FP) PO SCH (22:06)
[2018-09-05] MEDS: BACITRACIN 0.9 GM PACKET TP SCH (22:06)
[2018-09-05] MEDS: chlordiazePOXIDE HCL 25 MG CAPSULE PO SCH (22:06)
[2018-09-05] MEDS: THIAMINE HCL 100 MG TABLET (FP) PO SCH (22:06)
[2018-09-05] MEDS: MELATONIN 5 MG TABLETS PO PRN (22:07)
[2018-09-05 23:11] LABS: EPI CELLS 1.7 /HPF (0-5/HPF); HYALINE CASTS 47 /lpf (0-8); PH,URINE 5.5 (5.0-8.0); URINE APPEARANCE CLEAR; URINE BACTERIA 12.9 /hpf (NEGATIVE); URINE BILIRUBIN NEGATIVE (NEGATIVE); URINE COLOR YELLOW; URINE GLUCOSE (UA) NEGATIVE (NEGATIVE); URINE KETONE 1+ (NEGATIVE); URINE LEUK ESTERASE TRACE (NEGATIVE); URINE NITRITE NEGATIVE (NEGATIVE); URINE PROTEIN NEGATIVE (NEGATIVE); URINE RBC 1 /hpf (0-4); URINE WBC 1 /hpf (0-5)
[2018-09-06] MEDS: guaiFENesin 200 MG/10 ML 10 ML UNIT-DOSE CUPS PO SCH (00:26)
[2018-09-06] MEDS: chlordiazePOXIDE HCL 25 MG CAPSULE PO SCH ×4 (06:10→22:04)
[2018-09-06 10:05] LABS: HEMOGLOBIN 13.7 GM/dL (11.7-16.9); MCH 30.3 pg (25.7-33.7); MCHC 33.5 g/dl (32.0-35.9); MEAN CELL VOLUME 90.6 fl (80-96); MEAN PLT VOLUME 7.7 fl (7.5-11.1); PLATELET COUNT 233 K/MM3 (134-434); RBC 4.53 M/mm3 (4.00-5.60); RDW 14.6 % (11.9-15.9); WHITE BLOOD COUNT 4.8 K/mm3 (4.0-10.0)
[2018-09-06 10:12] LABS: ALBUMIN 3.6 g/dl (3.4-5.0); BILIRUBIN,TOTAL 0.4 mg/dL (0.2-1); CREATININE 1.2 mg/dL (0.55-1.3); POTASSIUM 3.9 mmol/L (3.5-5.1)
[2018-09-06] MEDS: BACITRACIN 0.9 GM PACKET TP SCH ×2 (10:12→22:03)
[2018-09-06] MEDS: PRENATAL VITAMINS W/ FOLIC ACID TABLET (FP) PO SCH (10:12)
[2018-09-06] MEDS: LISINOPRIL 10 MG TABLET (FP) PO SCH (10:12)
--- NOTE | 2018-09-06 11:45 | PN ---
[facility] CIWA - CIWA Score Nausea/Vomitin-Mild Nausea/No Vomiting Muscle Tremors: 3 Anxiety: 2 Agitation: 3 Paroxysmal Sweats: 1-Minimal Palms Moist Orientation: 1-Uncertain about Date Tacttile Disturbances: 0-None Auditory Disturbances: 0-None Visual Disturbances: 0-None Headache: 0-None Present CIWA-Ar Total Score: 11 [facility] Progress Note (SOAP) Subjective: doing well with librium detox protocol rest well more energy today ambulate on [address] social with peers Objective: 09/06/18 11:46 Vital Signs Temperature 97.7 F 09/06/18 09:01 Pulse Rate 72 09/06/18 09:01 Respiratory Rate 16 09/06/18 09:01 Blood Pressure 100/66 09/06/18 09:01 O2 Sat by Pulse Oximetry (%) Laboratory Last Values WBC 4.8 K/mm3 (4.0-10.0) 09/06/18 07:00 RBC 4.53 M/mm3 (4.00-5.60) 09/06/18 07:00 Hgb 13.7 GM/dL (11.7-16.9) 09/06/18 07:00 Hct 41.0 % (35.4-49) 09/06/18 07:00 MCV 90.6 fl (80-96) 09/06/18 07:00 MCH 30.3 pg (25.7-33.7) 09/06/18 07:00 MCHC 33.5 g/dl (32.0-35.9) 09/06/18 07:00 RDW 14.6 % (11.9-15.9) 09/06/18 07:00 Plt Count 233 K/MM3 (134-434) 09/06/18 07:00 MPV 7.7 fl (7.5-11.1) 09/06/18 07:00 Sodium 141 mmol/L (136-145) 09/06/18 07:00 Potassium 3.9 mmol/L (3.5-5.1) 09/06/18 07:00 Chloride 104 mmol/L (98-107) 09/06/18 07:00 Carbon Dioxide 31 mmol/L (21-32) 09/06/18 07:00 Anion Gap 6 MMOL/L (8-16) L 09/06/18 07:00 BUN 12 mg/dL (7-18) 09/06/18 07:00 Creatinine 1.2 mg/dL (0.55-1.3) 09/06/18 07:00 Est GFR (CKD-EPI)AfAm 81.23 09/06/18 07:00 Est GFR (CKD-EPI)NonAf 70.09 09/06/18 07:00 POC Glucometer 109 UNITS (80-120) 09/06/18 06:45 Random Glucose 101 mg/dL (74-106) 09/06/18 07:00 Calcium 9.0 mg/dL (8.5-10.1) 09/06/18 07:00 Total Bilirubin 0.4 mg/dL (0.2-1) 09/06/18 07:00 AST 16 U/L (15-37) 09/06/18 07:00 ALT 26 U/L (13-61) 09/06/18 07:00 Alkaline Phosphatase 83 U/L (45-117) 09/06/18 07:00 Total Protein 7.0 g/dl (6.4-8.2) 09/06/18 07:00 Albumin 3.6 g/dl (3.4-5.0) 09/06/18 07:00 Urine Color Yellow 09/05/18 23:00 Urine Appearance Clear 09/05/18 23:00 Urine pH 5.5 (5.0-8.0) 09/05/18 23:00 Ur Specific [place] 1.028 (1.010-1.035) 09/05/18 23:00 Urine Protein Negative (NEGATIVE) 09/05/18 23:00 Urine Glucose (UA) Negative (NEGATIVE) 09/05/18 23:00 Urine Ketones 1+ (NEGATIVE) H 09/05/18 23:00 Urine Blood Negative (NEGATIVE) 09/05/18 23:00 Urine Nitrite Negative (NEGATIVE) 09/05/18 23:00 Urine Bilirubin Negative (NEGATIVE) 09/05/18 23:00 Urine Urobilinogen 1.0 mg/dL (0.2-1.0) 09/05/18 23:00 Ur Leukocyte Esterase Trace (NEGATIVE) 09/05/18 23:00 Urine WBC (Auto) 1 /hpf (0-5) 09/05/18 23:00 Urine RBC (Auto) 1 /hpf (0-4) 09/05/18 23:00 Urine Casts (Auto) 47 /lpf (0-8) 09/05/18 23:00 U Epithel Cells (Auto) 1.7 /HPF (0-5/HPF) 09/05/18 23:00 Urine Bacteria (Auto) 12.9 /hpf (NEGATIVE) 09/05/18 23:00 RPR Titer Nonreactive (NONREACTIVE) 09/06/18 07:00 lab noted repeat ua Assessment: 09/06/18 11:47 withdrawal sx Plan: continue detox
--- NOTE | 2018-09-06 12:15 | EKG ---
Test Reason : Blood Pressure : / mmHG Vent. Rate : 079 BPM Atrial Rate : 079 BPM P-R Int : 108 ms QRS Dur : 104 ms QT Int : 380 ms P-R-T Axes : 028 -11 011 degrees QTc Int : 435 ms SINUS RHYTHM WITH SHORT [place] INCOMPLETE RIGHT BUNDLE BRANCH BLOCK BORDERLINE ECG WHEN COMPARED WITH ECG OF 29-JAN-2018 13:17, NO SIGNIFICANT CHANGE WAS FOUND Confirmed by MD Maame, Juan ([id number]) on 09/06/2018 12:14:50 PM Referred By: ALLAN STOUT Confirmed By:Juan Isabel MD
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
[2018-09-06] MEDS ORDERED: QUEtiapine FUMARATE 50 MG TABLET PO SCH (22:00)
[2018-09-06] MEDS ORDERED: traZODone HCL 100 MG TABLET (FP) PO SCH (22:00)
[2018-09-06] MEDS: THIAMINE HCL 100 MG TABLET (FP) PO SCH (22:04)
[2018-09-06] MEDS: ATORVASTATIN CA 10 MG TABLET (FP) PO SCH (22:04)
[2018-09-06] MEDS ORDERED: traZODone HCL 50 MG TABLET (FP) PO ONE (23:00)
[2018-09-07] MEDS: chlordiazePOXIDE HCL 25 MG CAPSULE PO SCH ×3 (05:49→17:13)
[2018-09-07] MEDS: LISINOPRIL 10 MG TABLET (FP) PO SCH (10:17)
[2018-09-07] MEDS: PRENATAL VITAMINS W/ FOLIC ACID TABLET (FP) PO SCH (10:17)
[2018-09-07] MEDS: BACITRACIN 0.9 GM PACKET TP SCH ×2 (10:17→22:10)
--- NOTE | 2018-09-07 12:22 | PN ---
[facility] CIWA - CIWA Score Nausea/Vomitin-No Nausea/No Vomiting Muscle Tremors: 2 Anxiety: 2 Agitation: 2 Paroxysmal Sweats: 1-Minimal Palms Moist Orientation: 0-Oriented Tacttile Disturbances: 0-None Auditory Disturbances: 0-None Visual Disturbances: 0-None Headache: 1-Very Mild CIWA-Ar Total Score: 8 S Progress Note (SOAP) Subjective: feeling better today discuss aftercare with staff Objective: 09/07/18 12:22 Vital Signs Temperature 97 F L 09/07/18 09:12 Pulse Rate 68 09/07/18 09:12 Respiratory Rate 20 09/07/18 09:12 Blood Pressure 100/70 09/07/18 09:12 O2 Sat by Pulse Oximetry (%) Laboratory Last Values WBC 4.8 K/mm3 (4.0-10.0) 09/06/18 07:00 RBC 4.53 M/mm3 (4.00-5.60) 09/06/18 07:00 Hgb 13.7 GM/dL (11.7-16.9) 09/06/18 07:00 Hct 41.0 % (35.4-49) 09/06/18 07:00 MCV 90.6 fl (80-96) 09/06/18 07:00 MCH 30.3 pg (25.7-33.7) 09/06/18 07:00 MCHC 33.5 g/dl (32.0-35.9) 09/06/18 07:00 RDW 14.6 % (11.9-15.9) 09/06/18 07:00 Plt Count 233 K/MM3 (134-434) 09/06/18 07:00 MPV 7.7 fl (7.5-11.1) 09/06/18 07:00 Sodium 141 mmol/L (136-145) 09/06/18 07:00 Potassium 3.9 mmol/L (3.5-5.1) 09/06/18 07:00 Chloride 104 mmol/L (98-107) 09/06/18 07:00 Carbon Dioxide 31 mmol/L (21-32) 09/06/18 07:00 Anion Gap 6 MMOL/L (8-16) L 09/06/18 07:00 BUN 12 mg/dL (7-18) 09/06/18 07:00 Creatinine 1.2 mg/dL (0.55-1.3) 09/06/18 07:00 Est GFR (CKD-EPI)AfAm 81.23 09/06/18 07:00 Est GFR (CKD-EPI)NonAf 70.09 09/06/18 07:00 POC Glucometer 102 UNITS (80-120) 09/07/18 05:48 Random Glucose 101 mg/dL (74-106) 09/06/18 07:00 Calcium 9.0 mg/dL (8.5-10.1) 09/06/18 07:00 Total Bilirubin 0.4 mg/dL (0.2-1) 09/06/18 07:00 AST 16 U/L (15-37) 09/06/18 07:00 ALT 26 U/L (13-61) 09/06/18 07:00 Alkaline Phosphatase 83 U/L (45-117) 09/06/18 07:00 Total Protein 7.0 g/dl (6.4-8.2) 09/06/18 07:00 Albumin 3.6 g/dl (3.4-5.0) 09/06/18 07:00 Urine Color Yellow 09/05/18 23:00 Urine Appearance Clear 09/05/18 23:00 Urine pH 5.5 (5.0-8.0) 09/05/18 23:00 Ur Specific [place] 1.028 (1.010-1.035) 09/05/18 23:00 Urine Protein Negative (NEGATIVE) 09/05/18 23:00 Urine Glucose (UA) Negative (NEGATIVE) 09/05/18 23:00 Urine Ketones 1+ (NEGATIVE) H 09/05/18 23:00 Urine Blood Negative (NEGATIVE) 09/05/18 23:00 Urine Nitrite Negative (NEGATIVE) 09/05/18 23:00 Urine Bilirubin Negative (NEGATIVE) 09/05/18 23:00 Urine Urobilinogen 1.0 mg/dL (0.2-1.0) 09/05/18 23:00 Ur Leukocyte Esterase Trace (NEGATIVE) 09/05/18 23:00 Urine WBC (Auto) 1 /hpf (0-5) 09/05/18 23:00 Urine RBC (Auto) 1 /hpf (0-4) 09/05/18 23:00 Urine Casts (Auto) 47 /lpf (0-8) 09/05/18 23:00 U Epithel Cells (Auto) 1.7 /HPF (0-5/HPF) 09/05/18 23:00 Urine Bacteria (Auto) 12.9 /hpf (NEGATIVE) 09/05/18 23:00 RPR Titer Nonreactive (NONREACTIVE) 09/06/18 07:00 lab noted Assessment: 09/07/18 12:22 withdrawal sx Plan: continue detox
[2018-09-07] MEDS ORDERED: traZODone HCL 100 MG TABLET (FP) PO SCH (22:00)
[2018-09-07] MEDS: ATORVASTATIN CA 10 MG TABLET (FP) PO SCH (22:09)
[2018-09-07] MEDS: THIAMINE HCL 100 MG TABLET (FP) PO SCH (22:09)
[2018-09-07] MEDS: chlordiazePOXIDE HCL 10 MG CAPSULE PO SCH (22:09)
[2018-09-07] MEDS: MELATONIN 5 MG TABLETS PO PRN (22:10)
[2018-09-07] MEDS ORDERED: chlordiazePOXIDE HCL 10 MG CAPSULE PO PRN (23:00)
[2018-09-08] MEDS: chlordiazePOXIDE HCL 10 MG CAPSULE PO SCH ×2 (05:59→11:03)
[2018-09-08 09:02] VITALS: TEMP 98.6
[2018-09-08] MEDS: PRENATAL VITAMINS W/ FOLIC ACID TABLET (FP) PO SCH (10:11)
[2018-09-08] MEDS: BACITRACIN 0.9 GM PACKET TP SCH (10:11)
[2018-09-08 10:18] LABS: PH,URINE 5.5 (5.0-8.0); URINE APPEARANCE CLEAR; URINE BILIRUBIN NEGATIVE (NEGATIVE); URINE COLOR YELLOW; URINE GLUCOSE (UA) NEGATIVE (NEGATIVE); URINE KETONE NEGATIVE (NEGATIVE); URINE LEUK ESTERASE NEGATIVE (NEGATIVE); URINE NITRITE NEGATIVE (NEGATIVE); URINE PROTEIN NEGATIVE (NEGATIVE); URINE UROBILINOGEN 0.2 mg/dL (0.2-1.0)
--- NOTE | 2018-09-08 11:31 | DS ---
[facility] Detox Discharge Summary Admission Date: 09/05/18 Discharge Date: 09/08/18 - History Present History: Alcohol Dependence Additional Comments: 52 years old male admitted on 09/05/18 for alcohol withdrawal stabilization feeling better today preferring alcohol rehab begin today [facility] - Physical Exam Results Vital Signs: Vital Signs Temperature 98.6 F 09/08/18 09:01 Pulse Rate 70 09/08/18 09:01 Respiratory Rate 18 09/08/18 09:01 Blood Pressure 102/65 09/08/18 09:01 O2 Sat by Pulse Oximetry (%) Pertinent Admission Physical Exam Findings: alcohol withdrawal sx Laboratory Last Values WBC 4.8 K/mm3 (4.0-10.0) 09/06/18 07:00 RBC 4.53 M/mm3 (4.00-5.60) 09/06/18 07:00 Hgb 13.7 GM/dL (11.7-16.9) 09/06/18 07:00 Hct 41.0 % (35.4-49) 09/06/18 07:00 MCV 90.6 fl (80-96) 09/06/18 07:00 MCH 30.3 pg (25.7-33.7) 09/06/18 07:00 MCHC 33.5 g/dl (32.0-35.9) 09/06/18 07:00 RDW 14.6 % (11.9-15.9) 09/06/18 07:00 Plt Count 233 K/MM3 (134-434) 09/06/18 07:00 MPV 7.7 fl (7.5-11.1) 09/06/18 07:00 Sodium 141 mmol/L (136-145) 09/06/18 07:00 Potassium 3.9 mmol/L (3.5-5.1) 09/06/18 07:00 Chloride 104 mmol/L (98-107) 09/06/18 07:00 Carbon Dioxide 31 mmol/L (21-32) 09/06/18 07:00 Anion Gap 6 MMOL/L (8-16) L 09/06/18 07:00 BUN 12 mg/dL (7-18) 09/06/18 07:00 Creatinine 1.2 mg/dL (0.55-1.3) 09/06/18 07:00 Est GFR (CKD-EPI)AfAm 81.23 09/06/18 07:00 Est GFR (CKD-EPI)NonAf 70.09 09/06/18 07:00 POC Glucometer 122 UNITS (80-120) 09/07/18 16:36 Random Glucose 101 mg/dL (74-106) 09/06/18 07:00 Calcium 9.0 mg/dL (8.5-10.1) 09/06/18 07:00 Total Bilirubin 0.4 mg/dL (0.2-1) 09/06/18 07:00 AST 16 U/L (15-37) 09/06/18 07:00 ALT 26 U/L (13-61) 09/06/18 07:00 Alkaline Phosphatase 83 U/L (45-117) 09/06/18 07:00 Total Protein 7.0 g/dl (6.4-8.2) 09/06/18 07:00 Albumin 3.6 g/dl (3.4-5.0) 09/06/18 07:00 Urine Color Yellow 09/08/18 08:20 Urine Appearance Clear 09/08/18 08:20 Urine pH 5.5 (5.0-8.0) 09/08/18 08:20 Ur Specific [place] 1.019 (1.010-1.035) 09/08/18 08:20 Urine Protein Negative (NEGATIVE) 09/08/18 08:20 Urine Glucose (UA) Negative (NEGATIVE) 09/08/18 08:20 Urine Ketones Negative (NEGATIVE) 09/08/18 08:20 Urine Blood Negative (NEGATIVE) 09/08/18 08:20 Urine Nitrite Negative (NEGATIVE) 09/08/18 08:20 Urine Bilirubin Negative (NEGATIVE) 09/08/18 08:20 Urine Urobilinogen 0.2 mg/dL (0.2-1.0) 09/08/18 08:20 Ur Leukocyte Esterase Negative (NEGATIVE) 09/08/18 08:20 Urine WBC (Auto) 1 /hpf (0-5) 09/05/18 23:00 Urine RBC (Auto) 1 /hpf (0-4) 09/05/18 23:00 Urine Casts (Auto) 47 /lpf (0-8) 09/05/18 23:00 U Epithel Cells (Auto) 1.7 /HPF (0-5/HPF) 09/05/18 23:00 Urine Bacteria (Auto) 12.9 /hpf (NEGATIVE) 09/05/18 23:00 RPR Titer Nonreactive (NONREACTIVE) 09/06/18 07:00 lab noted - Treatment Hospital Course: Detox Protocol Followed, Detoxed Safely, Responded well, Discharged Condition Good, Rehab Referral Accepted Patient has Accepted a Re[facility] Referral to: [facility] - Medication Discharge Medications: Ambulatory Orders Quetiapine Fumarate "Xr" [Seroquel XR] 50 mg PO HS 01/29/18 traZODone HCL [Trazodone HCl] 100 mg PO HS 01/29/18 Albuterol Sulfate [Proventil HFA Inhaler -] 2 inh PO QID PRN #1 hfa.aer.ad 02/01 Atorvastatin Ca [Lipitor] 10 mg PO HS 09/05/18 Budesonide/Formeterol Fumarate [SYMBICORT 160/4.5mcg -] 1 inh PO BID 09/05/18 Lisinopril 10 mg PO DAILY 09/05/18 Prazosin HCl [Minipress -] 2 mg PO HS 09/05/18 metFORMIN HCL [Glucophage -] 500 mg PO BIDAC 09/05/18 - Diagnosis (1) Alcohol dependence with uncomplicated withdrawal Current Visit: Yes Status: Acute (2) DM Diabetes mellitus type 2 Current Visit: Yes Status: Chronic (3) Essential hypertension Current Visit: Yes Status: Chronic (4) History of asthma Current Visit: Yes Status: Chronic (5) Hypercholesterolemia Current Visit: Yes Status: Chronic - AMA Did Patient Leave Against Medical Advice: No
[2018-09-08 13:16] VITALS: BP 123/90; PULSE 66
[2018-09-08] MEDS ORDERED: chlordiazePOXIDE HCL 10 MG CAPSULE PO SCH (23:00)
== END 2018-09-08 13:00 | disposition other institution (70) | DRG 774 ==
LOC: YASAS 12:37 → Y3N 18:13
PROVIDERS: ADMIT Surgery; ATTEND Surgery
PROC: HZ2ZZZZ Detoxification Services for Substance Abuse Treatment (ICD-10-PCS; principal; 2018-09-05)
DX: F10.230 Alcohol dependence with withdrawal, uncomplicated (principal); F14.20 Cocaine dependence, uncomplicated; F19.24 Other psychoactive substance dependence with psychoactive substance-induced mood disorder; F32.9 Major depressive disorder, single episode, unspecified; F43.10 Post-traumatic stress disorder, unspecified; I10 Essential (primary) hypertension; E78.00 Pure hypercholesterolemia, unspecified; E11.9 Type 2 diabetes mellitus without complications; J45.909 Unspecified asthma, uncomplicated; G47.00 Insomnia, unspecified; Z91.5 Personal history of self-harm; Z87.828 Personal history of other (healed) physical injury and trauma
CPT/HCPCS: 36415; 80053; 81003; 82962; 85027; 86593; 93005; 93010

== ENCOUNTER 2018-09-08 13:11 | Inpatient (IN) | payer OTHER ==
--- NOTE | 2018-09-08 11:34 | HP ---
[facility] Rehab Assess/Revision - Admission History Admitted to Rehab from: [facility] Date of Admission to Rehab: 09/08/18 - Findings Detox History & Physical reviewed: Yes Concur with findings: Yes Comments/Additional Findings: transferred from detox to rehab admission as per protocol Inpatient Rehab Admission - Rehab Decision to Admit Inpatient rehab admission?: Yes - Initial Determination Are CD services needed?: Yes Free of communicable disease: Yes Not in need of hospitalization: Yes - Rehab Admission Criteria Previous failed treatment: Yes Poor recovery environment: Yes Comorbidities: Yes Lacks judgement: No Patient is meeting Inpatient Rehab admission criteria:: Yes
[~2018-09-08 13:11] MED LIST: ACETAMINOPHEN 325 MG TABLET (FP) PO PRN; ALBUTEROL SO4 8 GM HFA INHALER IH PRN; IBUPROFEN 400 MG TABLET (FP) PO PRN; LOPERAMIDE HCL 2 MG CAPSULE PO PRN; MAG HYDROX/AL HYDROX/SIMETH 30 ML UNIT-DOSE CUP PO PRN; MAGNESIUM CITRATE 300 ML BOTTLE PO PRN; MAGNESIUM HYDROX 2400MG/30ML ORAL SUSPENSION 30 ML CUP PO PRN; MENTHOL/PHENOL 1 EACH UD MM PRN; NICOTINE 14 MG/24 HOURS TOPICAL PATCH TD PRN; NICOTINE POLACRILEX 2 MG GUM BUC PRN; P-EPHED 60MG/TRIPROLIDI 2.5MG TABLET PO PRN; guaiFENesin 200 MG/10 ML 10 ML UNIT-DOSE CUPS PO PRN
[2018-09-08] MEDS: BACITRACIN 0.9 GM PACKET TP SCH ×2 (14:56→21:22)
[2018-09-08] MEDS: metFORMIN HCL 500 MG TABLET (FP) PO SCH (16:31)
[2018-09-08] MEDS: THIAMINE HCL 100 MG TABLET (FP) PO SCH (21:21)
[2018-09-08] MEDS: traZODone HCL 50 MG TABLET (FP) PO SCH (21:21)
[2018-09-08] MEDS: ATORVASTATIN CA 10 MG TABLET (FP) PO SCH (21:21)
[2018-09-08] MEDS: MELATONIN 5 MG TABLETS PO PRN (21:22)
[2018-09-08] MEDS: BUDESONIDE/FORMETEROL FUMARATE 160/4.5 mcg INHALER IH SCH (21:22)
[2018-09-09] MEDS: metFORMIN HCL 500 MG TABLET (FP) PO SCH ×2 (06:47→16:37)
[2018-09-09] MEDS: BACITRACIN 0.9 GM PACKET TP SCH ×2 (10:09→21:38)
[2018-09-09] MEDS: PRENATAL VITAMINS W/ FOLIC ACID TABLET (FP) PO SCH (10:09)
[2018-09-09] MEDS: BUDESONIDE/FORMETEROL FUMARATE 160/4.5 mcg INHALER IH SCH ×2 (10:10→21:39)
[2018-09-09] MEDS: LISINOPRIL 10 MG TABLET (FP) PO SCH (10:10)
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
[2018-09-09] MEDS: THIAMINE HCL 100 MG TABLET (FP) PO SCH (21:38)
[2018-09-09] MEDS: ATORVASTATIN CA 10 MG TABLET (FP) PO SCH (21:38)
[2018-09-09] MEDS: QUEtiapine FUMARATE 50 MG TABLET PO SCH (21:39)
[2018-09-09] MEDS: traZODone HCL 50 MG TABLET (FP) PO SCH (21:39)
[2018-09-10] MEDS: metFORMIN HCL 500 MG TABLET (FP) PO SCH ×2 (06:10→16:49)
[2018-09-10] MEDS: PRENATAL VITAMINS W/ FOLIC ACID TABLET (FP) PO SCH (10:22)
[2018-09-10] MEDS: BUDESONIDE/FORMETEROL FUMARATE 160/4.5 mcg INHALER IH SCH ×2 (10:22→21:32)
[2018-09-10] MEDS: BACITRACIN 0.9 GM PACKET TP SCH ×2 (10:22→21:32)
[2018-09-10] MEDS: LISINOPRIL 10 MG TABLET (FP) PO SCH (10:22)
[2018-09-10] MEDS: QUEtiapine FUMARATE 50 MG TABLET PO SCH (21:32)
[2018-09-10] MEDS: THIAMINE HCL 100 MG TABLET (FP) PO SCH (21:32)
[2018-09-10] MEDS: traZODone HCL 50 MG TABLET (FP) PO SCH (21:32)
[2018-09-10] MEDS: MELATONIN 5 MG TABLETS PO PRN (21:32)
[2018-09-10] MEDS: ATORVASTATIN CA 10 MG TABLET (FP) PO SCH (21:32)
[2018-09-11] MEDS: metFORMIN HCL 500 MG TABLET (FP) PO SCH ×2 (07:07→16:40)
[2018-09-11] MEDS: PRENATAL VITAMINS W/ FOLIC ACID TABLET (FP) PO SCH (10:54)
[2018-09-11] MEDS: LISINOPRIL 10 MG TABLET (FP) PO SCH (10:54)
[2018-09-11] MEDS: BACITRACIN 0.9 GM PACKET TP SCH ×2 (10:54→21:18)
[2018-09-11] MEDS: BUDESONIDE/FORMETEROL FUMARATE 160/4.5 mcg INHALER IH SCH ×2 (10:55→21:18)
[2018-09-11] MEDS: MELATONIN 5 MG TABLETS PO PRN (21:17)
[2018-09-11] MEDS: ATORVASTATIN CA 10 MG TABLET (FP) PO SCH (21:17)
[2018-09-11] MEDS: traZODone HCL 50 MG TABLET (FP) PO SCH (21:17)
[2018-09-11] MEDS: THIAMINE HCL 100 MG TABLET (FP) PO SCH (21:17)
[2018-09-11] MEDS: QUEtiapine FUMARATE 50 MG TABLET PO SCH (21:17)
[2018-09-12] MEDS: metFORMIN HCL 500 MG TABLET (FP) PO SCH ×2 (07:21→16:49)
[2018-09-12] MEDS: BACITRACIN 0.9 GM PACKET TP SCH ×2 (11:06→21:25)
[2018-09-12] MEDS: LISINOPRIL 10 MG TABLET (FP) PO SCH (11:07)
[2018-09-12] MEDS: PRENATAL VITAMINS W/ FOLIC ACID TABLET (FP) PO SCH (11:07)
[2018-09-12] MEDS: BUDESONIDE/FORMETEROL FUMARATE 160/4.5 mcg INHALER IH SCH ×2 (11:09→21:25)
[2018-09-12] MEDS: traZODone HCL 50 MG TABLET (FP) PO SCH (21:25)
[2018-09-12] MEDS: QUEtiapine FUMARATE 50 MG TABLET PO SCH (21:25)
[2018-09-12] MEDS: MELATONIN 5 MG TABLETS PO PRN (21:25)
[2018-09-12] MEDS: ATORVASTATIN CA 10 MG TABLET (FP) PO SCH (21:25)
[2018-09-12] MEDS: THIAMINE HCL 100 MG TABLET (FP) PO SCH (21:26)
[2018-09-13] MEDS: metFORMIN HCL 500 MG TABLET (FP) PO SCH ×2 (06:40→16:44)
[2018-09-13] MEDS: PRENATAL VITAMINS W/ FOLIC ACID TABLET (FP) PO SCH (10:26)
[2018-09-13] MEDS: LISINOPRIL 10 MG TABLET (FP) PO SCH (10:26)
[2018-09-13] MEDS: BACITRACIN 0.9 GM PACKET TP SCH ×2 (10:26→21:53)
[2018-09-13] MEDS: BUDESONIDE/FORMETEROL FUMARATE 160/4.5 mcg INHALER IH SCH ×2 (10:26→21:53)
[2018-09-13] MEDS ORDERED: ASPIRIN 81 MG CHEWABLE TABLETS ONE (17:08)
--- NOTE | 2018-09-13 17:10 | PN ---
[facility] Progress Note (SOAP) Subjective: called by nursing staff for pt c/o chest pain . Pt reports he has had left-sided chest pain with coughing and non- productive cough , feels like " taste of blood in my throat " when coughing , and " nothing comes up, there is no blood ", reports pain in left side of the chest intermittently since admission , rates as 8/ , requested Tylenol from staff w /o relief of symptoms . Denies shortness of breath , nausea / vomiting. PMHX : htn , dm 2 , asthma Active Medications Acetaminophen (Tylenol -) 650 mg PO Q4H PRN PRN Reason: FEVER Al Hydroxide/Mg Hydroxide (Mylanta Oral Suspension -) 30 ml PO Q6H PRN PRN Reason: DYSPEPSIA Albuterol Sulfate (Ventolin Hfa Inhaler -) 2 puff IH Q4H PRN PRN Reason: ASTHMA Aspirin (Asa -) 81 mg PO ONCE ONE Stop: 09/13/18 17:05 Atorvastatin Calcium (Lipitor -) 10 mg PO HS [facility] Last Admin: 09/12/18 21:25 Dose: 10 mg Bacitracin (Bacitracin -) 0.9 gm TP BID [facility] Last Admin: 09/13/18 10:26 Dose: 0.9 gm Budesonide/Formoterol Fumarate (Symbicort 160/4.5mcg -) 2 puff IH BID [facility] Last Admin: 09/13/18 10:26 Dose: Not Given Eucalyptus/Menthol/Phenol/Sorbitol (Cepastat Lozenge -) 1 each MM Q4H PRN PRN Reason: SORE THROAT Last Admin: 09/09/18 18:14 Dose: 1 each Guaifenesin (Robitussin -) 10 ml PO Q6H PRN PRN Reason: COUGH Last Admin: 09/09/18 18:14 Dose: 10 ml Ibuprofen (Motrin -) 400 mg PO Q6H PRN PRN Reason: Pain level 4-6 Last Admin: 09/13/18 16:45 Dose: 400 mg Lisinopril (Prinivil) 10 mg PO DAILY [facility] Last Admin: 09/13/18 10:26 Dose: 10 mg Loperamide HCl (Imodium -) 4 mg PO Q6H PRN PRN Reason: DIARRHEA Magnesium Citrate (Citroma -) 300 ml PO Q48H PRN PRN Reason: CONSTIPATION Magnesium Hydroxide (Milk Of Magnesia -) 30 ml PO DAILY PRN PRN Reason: CONSTIPATION Melatonin (Melatonin) 5 mg PO HS PRN PRN Reason: INSOMNIA Last Admin: 09/12/18 21:25 Dose: 5 mg Metformin HCl (Glucophage -) 500 mg PO BID@0700,1630 [facility] Last Admin: 09/13/18 16:44 Dose: 500 mg Nicotine (Nicoderm Patch -) 14 mg TD DAILY PRN PRN Reason: NICOTINE REPLACEMENT RX Nicotine Polacrilex (Nicorette Gum -) 2 mg BUC Q2H PRN PRN Reason: NICOTINE REPLACEMENT RX Multivit/Folic Acid/Iron ( Vitamins (Sjr) -) 1 tab PO DAILY [facility] Last Admin: 09/13/18 10:26 Dose: 1 tab Pseudoephedrine/Triprolidine (Actifed -) 1 combo PO TID PRN PRN Reason: NASAL CONGESTION Quetiapine Fumarate (Seroquel -) 50 mg PO [facility] Last Admin: 09/12/18 21:25 Dose: 50 mg Thiamine HCl (Vitamin B1 -) 100 mg PO [facility] Last Admin: 09/12/18 21:26 Dose: 100 mg Trazodone HCl (Desyrel -) 100 mg PO [facility] Last Admin: 09/12/18 21:25 Dose: 100 mg Objective: general : wnwd , mild distress Vital Signs - 24 hr 09/13/18 09/13/18 09/13/18 00:30 03:30 07:21 Temperature 97.4 F L Pulse Rate 69 Respiratory 18 18 18 Rate Blood Pressure 105/69 09/13/18 10:00 Temperature Pulse Rate 79 Respiratory Rate Blood Pressure 110/74 Resp : CTA b/l no w/r/r , no accessory mm use , no distress noted . Chest wall : left ribcage w/ mild tenderness with deep palpation, no crepitus , no edema / no ecchymosis , no deformity . CV : RRR S1 S2 , no pedal edema . Assessment: Cough h/o asthma / Chest pain h/o HTN , DM , cocaine dependence, alcohol dependence Plan: Aspirin 81 mg x once EKG pending refer to ER for further evaluation , dx & Tx d/w pt, agreeable w/ POC report to Dr Castaneda.
[2018-09-13] MEDS ORDERED: ASPIRIN 81 MG CHEWABLE TABLETS PO ONE (17:15)
[2018-09-13] MEDS: ATORVASTATIN CA 10 MG TABLET (FP) PO SCH (21:53)
[2018-09-13] MEDS: traZODone HCL 50 MG TABLET (FP) PO SCH (21:53)
[2018-09-13] MEDS: THIAMINE HCL 100 MG TABLET (FP) PO SCH (21:53)
[2018-09-13] MEDS: QUEtiapine FUMARATE 50 MG TABLET PO SCH (22:46)
[2018-09-14] MEDS: metFORMIN HCL 500 MG TABLET (FP) PO SCH ×2 (07:41→16:19)
[2018-09-14] MEDS: BUDESONIDE/FORMETEROL FUMARATE 160/4.5 mcg INHALER IH SCH ×2 (10:01→21:20)
[2018-09-14] MEDS: LISINOPRIL 10 MG TABLET (FP) PO SCH (10:02)
[2018-09-14] MEDS: BACITRACIN 0.9 GM PACKET TP SCH ×2 (10:02→21:19)
[2018-09-14] MEDS: PRENATAL VITAMINS W/ FOLIC ACID TABLET (FP) PO SCH (10:02)
--- NOTE | 2018-09-14 17:22 | EKG ---
Test Reason : Blood Pressure : / mmHG Vent. Rate : 069 BPM Atrial Rate : 069 BPM P-R Int : 126 ms QRS Dur : 098 ms QT Int : 390 ms P-R-T Axes : 034 019 030 degrees QTc Int : 417 ms NORMAL SINUS RHYTHM NORMAL ECG WHEN COMPARED WITH ECG OF 05-SEP-2018 18:28, INCOMPLETE RIGHT BUNDLE BRANCH BLOCK IS NO LONGER PRESENT Confirmed by XANDER DAY MD ([id number]) on 09/14/2018 5:21:42 PM Referred By: Confirmed By:XANDER DAY MD
[2018-09-14] MEDS: ATORVASTATIN CA 10 MG TABLET (FP) PO SCH (21:19)
[2018-09-14] MEDS: QUEtiapine FUMARATE 50 MG TABLET PO SCH (21:19)
[2018-09-14] MEDS: THIAMINE HCL 100 MG TABLET (FP) PO SCH (21:19)
[2018-09-14] MEDS: traZODone HCL 50 MG TABLET (FP) PO SCH (21:20)
[2018-09-14] MEDS: MELATONIN 5 MG TABLETS PO PRN (21:22)
[2018-09-15] MEDS: metFORMIN HCL 500 MG TABLET (FP) PO SCH ×2 (06:22→16:55)
[2018-09-15] MEDS: LISINOPRIL 10 MG TABLET (FP) PO SCH (10:16)
[2018-09-15] MEDS: BUDESONIDE/FORMETEROL FUMARATE 160/4.5 mcg INHALER IH SCH ×2 (10:16→21:16)
[2018-09-15] MEDS: PRENATAL VITAMINS W/ FOLIC ACID TABLET (FP) PO SCH (10:16)
[2018-09-15] MEDS: BACITRACIN 0.9 GM PACKET TP SCH ×2 (10:16→21:13)
[2018-09-15] MEDS: QUEtiapine FUMARATE 50 MG TABLET PO SCH (21:13)
[2018-09-15] MEDS: ATORVASTATIN CA 10 MG TABLET (FP) PO SCH (21:13)
[2018-09-15] MEDS: traZODone HCL 50 MG TABLET (FP) PO SCH (21:14)
[2018-09-15] MEDS: THIAMINE HCL 100 MG TABLET (FP) PO SCH (21:14)
[2018-09-16] MEDS: metFORMIN HCL 500 MG TABLET (FP) PO SCH ×2 (06:33→16:57)
[2018-09-16] MEDS: LISINOPRIL 10 MG TABLET (FP) PO SCH (10:06)
[2018-09-16] MEDS: PRENATAL VITAMINS W/ FOLIC ACID TABLET (FP) PO SCH (10:06)
[2018-09-16] MEDS: BUDESONIDE/FORMETEROL FUMARATE 160/4.5 mcg INHALER IH SCH ×2 (10:07→22:17)
[2018-09-16] MEDS: BACITRACIN 0.9 GM PACKET TP SCH ×2 (10:07→22:06)
[2018-09-16] MEDS ORDERED: SODIUM CHLORIDE NASAL SPRAY 44 ML BOTTLE NS PRN (13:26)
--- NOTE | 2018-09-16 13:35 | PN ---
S Progress Note Note: PT C/O NASAL CONGESTION AND WANTS MENTHOL DERIVATIVE FOR RELIEF. PT HAS A HX OF LORATADINE 10 MG PO DAILY FROM HIS ONLINE HOME PHARMACY. Vital Signs - 24 hr 09/16/18 09/16/18 09/16/18 00:30 03:30 06:26 Temperature 97.9 F Pulse Rate 69 Respiratory 18 18 18 Rate Blood Pressure 131/71 09/16/18 11:12 Temperature 97.8 F Pulse Rate 80 Respiratory 18 Rate Blood Pressure 110/64 HX ASTHMA NASAL CONGESTION R/O ALLERGIC RHINITIS PLAN:RESTART LORATADINE 10 MG PO DAILY, FIRST DOSE TODAY. SALINE NASAL SPRAY DIRECTED.
[2018-09-16] MEDS ORDERED: LORATADINE 10 MG TABLET PO ONE (14:52)
[2018-09-16] MEDS: LORATADINE 10 MG TABLET PO SCH (16:57)
[2018-09-16] MEDS: THIAMINE HCL 100 MG TABLET (FP) PO SCH (22:06)
[2018-09-16] MEDS: QUEtiapine FUMARATE 50 MG TABLET PO SCH (22:06)
[2018-09-16] MEDS: traZODone HCL 50 MG TABLET (FP) PO SCH (22:06)
[2018-09-16] MEDS: ATORVASTATIN CA 10 MG TABLET (FP) PO SCH (22:17)
[2018-09-17] MEDS: metFORMIN HCL 500 MG TABLET (FP) PO SCH ×2 (07:22→16:50)
[2018-09-17] MEDS: LORATADINE 10 MG TABLET PO SCH (09:58)
[2018-09-17] MEDS: PRENATAL VITAMINS W/ FOLIC ACID TABLET (FP) PO SCH (09:58)
[2018-09-17] MEDS: LISINOPRIL 10 MG TABLET (FP) PO SCH (09:58)
[2018-09-17] MEDS: BUDESONIDE/FORMETEROL FUMARATE 160/4.5 mcg INHALER IH SCH ×2 (09:59→21:21)
[2018-09-17] MEDS: BACITRACIN 0.9 GM PACKET TP SCH ×2 (09:59→21:20)
[2018-09-17] MEDS: THIAMINE HCL 100 MG TABLET (FP) PO SCH (21:20)
[2018-09-17] MEDS: QUEtiapine FUMARATE 50 MG TABLET PO SCH (21:20)
[2018-09-17] MEDS: ATORVASTATIN CA 10 MG TABLET (FP) PO SCH (21:20)
[2018-09-17] MEDS: traZODone HCL 50 MG TABLET (FP) PO SCH (21:21)
[2018-09-18] MEDS: metFORMIN HCL 500 MG TABLET (FP) PO SCH ×2 (07:18→16:49)
[2018-09-18] MEDS: LISINOPRIL 10 MG TABLET (FP) PO SCH (09:55)
[2018-09-18] MEDS: PRENATAL VITAMINS W/ FOLIC ACID TABLET (FP) PO SCH (09:55)
[2018-09-18] MEDS: BUDESONIDE/FORMETEROL FUMARATE 160/4.5 mcg INHALER IH SCH ×2 (09:55→21:42)
[2018-09-18] MEDS: BACITRACIN 0.9 GM PACKET TP SCH ×2 (09:55→21:42)
[2018-09-18] MEDS: LORATADINE 10 MG TABLET PO SCH (09:55)
[2018-09-18] MEDS: QUEtiapine FUMARATE 50 MG TABLET PO SCH (21:41)
[2018-09-18] MEDS: ATORVASTATIN CA 10 MG TABLET (FP) PO SCH (21:41)
[2018-09-18] MEDS: THIAMINE HCL 100 MG TABLET (FP) PO SCH (21:41)
[2018-09-18] MEDS: traZODone HCL 50 MG TABLET (FP) PO SCH (21:41)
[2018-09-19 06:25] VITALS: TEMP 97.8
[2018-09-19] MEDS: metFORMIN HCL 500 MG TABLET (FP) PO SCH ×2 (06:36→16:24)
[2018-09-19] MEDS: LORATADINE 10 MG TABLET PO SCH (10:27)
[2018-09-19] MEDS: PRENATAL VITAMINS W/ FOLIC ACID TABLET (FP) PO SCH (10:27)
[2018-09-19] MEDS: LISINOPRIL 10 MG TABLET (FP) PO SCH (10:27)
[2018-09-19] MEDS: BACITRACIN 0.9 GM PACKET TP SCH ×2 (10:28→21:14)
[2018-09-19] MEDS: BUDESONIDE/FORMETEROL FUMARATE 160/4.5 mcg INHALER IH SCH ×2 (10:28→21:15)
--- NOTE | 2018-09-19 14:54 | PN ---
[facility] Progress Note Note: Patient is scheduled for discharge tomorrow. Scripts for 30 days supply of medications(Trazadone 100 mg/hs, Seroquel 50 mg/hs)will be elecronically transmitted to [facility] Pharmacy at [address] [place], [place] [id number]
[2018-09-19] MEDS: THIAMINE HCL 100 MG TABLET (FP) PO SCH (21:14)
[2018-09-19] MEDS: QUEtiapine FUMARATE 50 MG TABLET PO SCH (21:14)
[2018-09-19] MEDS: ATORVASTATIN CA 10 MG TABLET (FP) PO SCH (21:14)
[2018-09-19] MEDS: MELATONIN 5 MG TABLETS PO PRN (21:15)
[2018-09-19] MEDS: traZODone HCL 50 MG TABLET (FP) PO SCH (21:16)
[2018-09-20 06:23] VITALS: BP 127/83; PULSE 67
[2018-09-20] MEDS: metFORMIN HCL 500 MG TABLET (FP) PO SCH (06:55)
[2018-09-20] MEDS: PRENATAL VITAMINS W/ FOLIC ACID TABLET (FP) PO SCH (09:37)
[2018-09-20] MEDS: LORATADINE 10 MG TABLET PO SCH (09:37)
[2018-09-20] MEDS: LISINOPRIL 10 MG TABLET (FP) PO SCH (09:37)
[2018-09-20] MEDS: BACITRACIN 0.9 GM PACKET TP SCH (09:37)
[2018-09-20] MEDS: BUDESONIDE/FORMETEROL FUMARATE 160/4.5 mcg INHALER IH SCH (09:39)
--- NOTE | 2018-09-20 09:41 | PN ---
[facility] Progress Note (SOAP) Subjective: PT COMPLETED REHAB AND DISCHARGED TODAY. PT MET WITH HIS COUNSELOR, MS ASHLEY JOSE GUADALUPE FOR CD AFTERCARE PLANS REFERRALS-[facility]. PT REPORTS HE HAS A PCP DR. STOUT AT [facility] ON [address] [place], [place]. REPORTS [place], [place] FOR OTHER MEDICAL AND MENTAL HEALTH MANAGEMENT. STATES HE HAS APPOINTMENTS FOR 09/28/18 FOR MEDICAL AND 12/01/18 FOR MENTAL HEALTH. ALERT O X 3. AMBULATES WITH STAEDY GAIT. DENIES S/H/I. REQUEST FOR COURTESY RX TILL CAN GET TO PCP SENT TO PT'S PHARMACY FOR GIZZARD SKIN REMOVER AFTER DISCHARGE TODAY. Objective: 09/20/18 09:41 Vital Signs - 24 hr 09/19/18 09/20/18 09/20/18 10:00 00:30 03:30 Temperature Pulse Rate 79 Respiratory 18 18 Rate Blood Pressure 110/60 09/20/18 06:23 Temperature 97.8 F Pulse Rate 67 Respiratory 18 Rate Blood Pressure 127/83 Laboratory Tests 09/08/18 09/09/18 09/09/18 16:30 06:15 16:36 POC Glucometer 118 99 99 09/10/18 09/10/18 09/11/18 06:09 16:49 16:40 POC Glucometer 93 105 94 09/12/18 09/13/18 09/13/18 16:49 06:38 16:43 POC Glucometer 114 87 90 09/14/18 09/14/18 09/15/18 07:32 16:19 05:38 POC Glucometer 94 102 105 09/15/18 09/16/18 09/16/18 16:54 06:33 16:48 POC Glucometer 115 109 114 09/17/18 09/17/18 09/18/18 07:21 16:49 16:48 POC Glucometer 132 101 95 09/19/18 09/19/18 09/20/18 06:36 16:23 06:55 POC Glucometer 90 96 99 Home Medications Medication Instructions Recorded Albuterol Sulfate [Proventil HFA 2 inh PO QID PRN #1 hfa.aer.ad 02/01/18 Inhaler -] Budesonide/Formeterol Fumarate 1 inh PO BID 09/05/18 [SYMBICORT 160/4.5mcg -] Prazosin HCl [Minipress -] 2 mg PO HS 09/05/18 Quetiapine Fumarate [Seroquel -] 50 mg PO HS #30 tablet 09/19/18 traZODone HCL [Trazodone HCl] 100 mg PO HS #30 tablet 09/19/18 Atorvastatin Ca [Lipitor] 10 mg PO HS #14 tablet 09/20/18 Lisinopril 10 mg PO DAILY #14 tablet 09/20/18 Loratadine 1 tab PO DAILY #14 tablet 09/20/18 metFORMIN HCL [Glucophage -] 500 mg PO BIDAC #30 tablet 09/20/18 Assessment: 09/20/18 09:42 NAD MEDICALLY STABLE Plan: D/C PT TODAY FOLLOW UP WITH CD AFTERCARE RECOMMENDATION. FOLLOW UP WITH PCP FOR MEDICAL MANAGEMENT WITHIN 1 WEEK AFTER DISCHARGE.
== END 2018-09-20 10:15 | disposition home or self-care (01) | DRG 772 ==
LOC: YASAS 13:11 → Y5N 13:12
PROVIDERS: ADMIT Neuromusculoskeletal Medicine & OMM; ATTEND Neuromusculoskeletal Medicine & OMM
PROC: HZ42ZZZ Group Counseling for Substance Abuse Treatment, Cognitive-Behavioral (ICD-10-PCS; principal; 2018-09-08)
DX: F10.20 Alcohol dependence, uncomplicated (principal); F14.20 Cocaine dependence, uncomplicated; F19.24 Other psychoactive substance dependence with psychoactive substance-induced mood disorder; G47.00 Insomnia, unspecified; E78.00 Pure hypercholesterolemia, unspecified; I10 Essential (primary) hypertension; E11.9 Type 2 diabetes mellitus without complications; J45.909 Unspecified asthma, uncomplicated; R05 Cough; R07.9 Chest pain, unspecified
CPT/HCPCS: 82962; 93005; 93010

== ENCOUNTER 2018-09-13 18:41 | Emergency (ER) | payer OTHER ==
[2018-09-13 18:59] VITALS: BP 130/84; PULSE 72; TEMP 97.9; BMI 30.1
[2018-09-13 19:46] LABS: BASO % 0.4 % (0-2.0); EOS % 4.7 % (0-4.5); HEMATOCRIT 38.8 % (35.4-49); HEMOGLOBIN 12.7 GM/dL (11.7-16.9); LYMPH % 33.6 % (8-40); MCH 29.9 pg (25.7-33.7); MCHC 32.8 g/dl (32.0-35.9); MEAN CELL VOLUME 91.2 fl (80-96); MEAN PLT VOLUME 7.4 fl (7.5-11.1); MONO % 8.9 % (3.8-10.2); NEUT % 52.4 % (42.8-82.8); PLATELET COUNT 268 K/MM3 (134-434); RBC 4.26 M/mm3 (4.00-5.60); RDW 14.4 % (11.9-15.9); WHITE BLOOD COUNT 5.7 K/mm3 (4.0-10.0)
[2018-09-13] MEDS ORDERED: ACETAMINOPHEN 500 MG TABLET (FP) PO ONE (19:46)
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
[2018-09-13] MEDS ORDERED: ACETAMINOPHEN 325 MG TABLET (FP) ONE (20:06)
[2018-09-13 20:19] LABS: ALBUMIN 3.7 g/dl (3.4-5.0); ALK PHOS 81 U/L (45-117); ANION GAP 7 MMOL/L (8-16); BILIRUBIN,TOTAL 0.2 mg/dL (0.2-1); BLOOD UREA NITROGEN 20 mg/dL (7-18); CALCIUM 8.8 mg/dL (8.5-10.1); CHLORIDE 102 mmol/L (98-107); CO2 30 mmol/L (21-32); CREATININE 1.1 mg/dL (0.55-1.3); GLUCOSE,RANDOM 88 mg/dL (74-106); POTASSIUM 4.3 mmol/L (3.5-5.1); SGOT/AST 16 U/L (15-37); SGPT/ALT 24 U/L (13-61); SODIUM 139 mmol/L (136-145)
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
--- NOTE | 2018-09-18 15:39 | EKG ---
Test Reason : Blood Pressure : / mmHG Vent. Rate : 069 BPM Atrial Rate : 069 BPM P-R Int : 110 ms QRS Dur : 096 ms QT Int : 392 ms P-R-T Axes : 031 000 013 degrees QTc Int : 420 ms SINUS RHYTHM WITH SHORT MI OTHERWISE NORMAL ECG WHEN COMPARED WITH ECG OF 13-SEP-2018 16:30, NO SIGNIFICANT CHANGE WAS FOUND Confirmed by NIRMAL SALDANA MD ([id number]) on 09/18/2018 3:38:54 PM Referred By: Confirmed By:NIRMAL SALDANA MD
== END 2018-09-14 03:00 | disposition short-term general hospital (02) ==
LOC: JER 18:41
DX: R07.89 Other chest pain (principal); J45.909 Unspecified asthma, uncomplicated; I10 Essential (primary) hypertension; E78.5 Hyperlipidemia, unspecified; E11.9 Type 2 diabetes mellitus without complications; F32.9 Major depressive disorder, single episode, unspecified
CPT/HCPCS: 36415; 71046-TC-FY; 80053; 82550; 82553; 84484; 85025; 93005; 93010; 99284-25

== ENCOUNTER 2018-10-18 09:23 | Inpatient (IN) | payer OTHER ==
[2018-10-18 10:32] VITALS: BMI 30.8
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
[2018-10-18] MEDS ORDERED: diazePAM 5 MG TABLET PO PRN (12:17)
[2018-10-18] MEDS ORDERED: MAGNESIUM CITRATE 300 ML BOTTLE PO PRN (12:17)
[2018-10-18] MEDS ORDERED: MELATONIN 5 MG TABLETS PO PRN (12:17)
[2018-10-18] MEDS ORDERED: MAG HYDROX/AL HYDROX/SIMETH 30 ML UNIT-DOSE CUP PO PRN (12:17)
[2018-10-18] MEDS ORDERED: ACETAMINOPHEN 325 MG TABLET (FP) PO PRN ×2 (12:17)
[2018-10-18] MEDS ORDERED: BISMUTH SUBSALICYLATE 262 MG/15 ML BTL PO PRN (12:17)
[2018-10-18] MEDS ORDERED: MAGNESIUM HYDROX 2400MG/30ML ORAL SUSPENSION 30 ML CUP PO PRN (12:17)
[2018-10-18] MEDS ORDERED: hydrOXYzine PAMOATE 25 MG CAPSULE (FP) PO PRN (12:17)
[2018-10-18] MEDS ORDERED: IBUPROFEN 400 MG TABLET (FP) PO PRN (12:17)
[2018-10-18] MEDS ORDERED: MENTHOL/PHENOL 1 EACH UD MM PRN (12:17)
[2018-10-18] MEDS ORDERED: ALBUTEROL SO4 8 GM HFA INHALER IH PRN (12:19)
[2018-10-18] MEDS: diazePAM 5 MG TABLET PO SCH ×2 (13:14→22:34)
--- NOTE | 2018-10-18 14:03 | PN ---
S Progress Note Note: 52 y.o. male w/ PMHX : htn , dm 2 , asthma , requesting detox from etoh use , denies seizures, blackouts, + tremors if not drinking alcohol, relapse after prior detox at this facility , current symptoms as described . a/p : alcohol dependence , taper w/ Valium . d/w pt agreeable w/ POC
[2018-10-18] MEDS: ATORVASTATIN CA 10 MG TABLET (FP) PO SCH (22:34)
[2018-10-18] MEDS: THIAMINE HCL 100 MG TABLET (FP) PO SCH (22:35)
[2018-10-18] MEDS: BUDESONIDE/FORMETEROL FUMARATE 160/4.5 mcg INHALER IH SCH (22:37)
[2018-10-19] MEDS: diazePAM 5 MG TABLET PO SCH ×3 (06:39→22:11)
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
[2018-10-19 10:06] LABS: HEMATOCRIT 38.9 % (35.4-49); HEMOGLOBIN 12.9 GM/dL (11.7-16.9); MCH 30.3 pg (25.7-33.7); MCHC 33.3 g/dl (32.0-35.9); MEAN CELL VOLUME 91.1 fl (80-96); MEAN PLT VOLUME 7.9 fl (7.5-11.1); PLATELET COUNT 207 K/MM3 (134-434); RBC 4.27 M/mm3 (4.00-5.60); WHITE BLOOD COUNT 3.3 K/mm3 (4.0-10.0)
[2018-10-19 10:18] LABS: ALBUMIN 3.3 g/dl (3.4-5.0); BILIRUBIN,TOTAL 0.4 mg/dL (0.2-1); BLOOD UREA NITROGEN 17.9 mg/dL (7-18); CALCIUM 8.4 mg/dL (8.5-10.1); CREATININE 1.2 mg/dL (0.55-1.3); POTASSIUM 3.7 mmol/L (3.5-5.1); TOT PROT 6.4 g/dl (6.4-8.2)
[2018-10-19] MEDS: PRENATAL VITAMINS W/ FOLIC ACID TABLET (FP) PO SCH (10:45)
[2018-10-19] MEDS: BUDESONIDE/FORMETEROL FUMARATE 160/4.5 mcg INHALER IH SCH ×2 (10:46→22:11)
[2018-10-19] MEDS: LISINOPRIL 10 MG TABLET (FP) PO SCH (10:46)
--- NOTE | 2018-10-19 14:00 | PN ---
S CIWA - CIWA Score Nausea/Vomitin-No Nausea/No Vomiting Muscle Tremors: 4-Moderate,w/Arms Extend Anxiety: 4-Mod. Anxious/Guarded Agitation: 4-Moderately Restless Paroxysmal Sweats: 1-Minimal Palms Moist Orientation: 0-Oriented Tacttile Disturbances: 0-None Auditory Disturbances: 0-None Visual Disturbances: 0-None Headache: 0-None Present CIWA-Ar Total Score: 13 B[facility] Progress Note (SOAP) Subjective: ANXIETY, IRRITABILITY, TREMORS, FATIGUE. PT REPORTS TO NURSE HE IS ON TRAZODONE AND SEROQUEL AND WOULD LIKE PSYCH RE: EVALUATION. Objective: 10/19/18 13:57 Vital Signs - 24 hr 10/18/18 10/18/18 10/19/18 17:28 22:05 00:30 Temperature 98.1 F 97.9 F Pulse Rate 75 66 Respiratory 18 16 18 Rate Blood Pressure 137/68 108/55 L 10/19/18 10/19/18 10/19/18 03:30 08:12 09:32 Temperature 97.5 F L 98.4 F Pulse Rate 64 78 Respiratory 18 18 18 Rate Blood Pressure 105/62 117/76 10/19/18 13:17 Temperature 98.4 F Pulse Rate 63 Respiratory 18 Rate Blood Pressure 129/82 Laboratory Tests 10/18/18 10/18/18 10/19/18 12:27 16:22 07:50 WBC 3.3 L RBC 4.27 Hgb 12.9 Hct 38.9 MCV 91.1 MCH 30.3 MCHC 33.3 RDW 15.0 Plt Count 207 D MPV 7.9 Sodium Potassium Chloride Carbon Dioxide Anion Gap BUN Creatinine Est GFR (CKD-EPI)AfAm Est GFR (CKD-EPI)NonAf POC Glucometer 112 119 Random Glucose Calcium Total Bilirubin AST ALT Alkaline Phosphatase Total Protein Albumin RPR Titer 10/19/18 10/19/18 07:50 07:50 WBC RBC Hgb Hct MCV MCH MCHC RDW Plt Count MPV Sodium 141 Potassium 3.7 Chloride 108 H Carbon Dioxide 30 Anion Gap 3 L BUN 17.9 Creatinine 1.2 Est GFR (CKD-EPI)AfAm 81.23 Est GFR (CKD-EPI)NonAf 70.09 POC Glucometer Random Glucose 103 Calcium 8.4 L Total Bilirubin 0.4 AST 20 ALT 21 Alkaline Phosphatase 71 Total Protein 6.4 Albumin 3.3 L RPR Titer Nonreactive Assessment: 10/19/18 13:58 WITHDRAWAL SX Plan: CONTINUE DETOX PSYCH CONSULT FOR RE:EVAL FOR MEDS. ADDENDUM:PT WAS SEEN AND MEDS ORDERED.
[2018-10-19] MEDS: traZODone HCL 100 MG TABLET (FP) PO SCH (22:10)
[2018-10-19] MEDS: QUEtiapine FUMARATE 100 MG TABLET (FP) PO SCH (22:11)
[2018-10-19] MEDS: ATORVASTATIN CA 10 MG TABLET (FP) PO SCH (22:11)
[2018-10-19] MEDS: THIAMINE HCL 100 MG TABLET (FP) PO SCH (22:11)
[2018-10-19] MEDS: QUEtiapine FUMARATE 50 MG TABLET PO SCH (22:11)
[2018-10-20] MEDS: diazePAM 5 MG TABLET PO SCH ×2 (06:20→19:07)
--- NOTE | 2018-10-20 10:16 | PN ---
S CIWA - CIWA Score Nausea/Vomitin-No Nausea/No Vomiting Muscle Tremors: 2 Anxiety: 2 Agitation: 0-Normal Activity Paroxysmal Sweats: 3 Orientation: 0-Oriented Tacttile Disturbances: 0-None Auditory Disturbances: 0-None Visual Disturbances: 0-None Headache: 1-Very Mild CIWA-Ar Total Score: 8 S Progress Note (SOAP) Subjective: c/o headache, sweats, and anxiety. Objective: 10/20/18 10:15 Vital Signs 10/20/18 10/20/18 10/20/18 03:30 06:00 09:23 Temperature 97.2 F L 97.2 F L Pulse Rate 54 L 57 L Respiratory 18 18 16 Rate Blood Pressure 109/68 100/58 L Lab Results WBC 3.3 K/mm3 (4.0-10.0) L 10/19/18 07:50 RBC 4.27 M/mm3 (4.00-5.60) 10/19/18 07:50 Hgb 12.9 GM/dL (11.7-16.9) 10/19/18 07:50 Hct 38.9 % (35.4-49) 10/19/18 07:50 MCV 91.1 fl (80-96) 10/19/18 07:50 MCHC 33.3 g/dl (32.0-35.9) 10/19/18 07:50 RDW 15.0 % (11.9-15.9) 10/19/18 07:50 Plt Count 207 K/MM3 (134-434) D 10/19/18 07:50 Sodium 141 mmol/L (136-145) 10/19/18 07:50 Potassium 3.7 mmol/L (3.5-5.1) 10/19/18 07:50 Chloride 108 mmol/L (98-107) H 10/19/18 07:50 Carbon Dioxide 30 mmol/L (21-32) 10/19/18 07:50 Anion Gap 3 MMOL/L (8-16) L 10/19/18 07:50 BUN 17.9 mg/dL (7-18) 10/19/18 07:50 Creatinine 1.2 mg/dL (0.55-1.3) 10/19/18 07:50 Random Glucose 103 mg/dL (74-106) 10/19/18 07:50 Calcium 8.4 mg/dL (8.5-10.1) L 10/19/18 07:50 Labs noted. Assessment: 10/20/18 10:15 AOX3, in no acute respiratory distress Full ROM, ambulating in the unit. withdrawal symptoms. Plan: continue detox.
[2018-10-20] MEDS: PRENATAL VITAMINS W/ FOLIC ACID TABLET (FP) PO SCH (11:09)
[2018-10-20] MEDS: LISINOPRIL 10 MG TABLET (FP) PO SCH (11:10)
[2018-10-20] MEDS: BUDESONIDE/FORMETEROL FUMARATE 160/4.5 mcg INHALER IH SCH ×2 (11:10→22:14)
[2018-10-20] MEDS: THIAMINE HCL 100 MG TABLET (FP) PO SCH (22:12)
[2018-10-20] MEDS: traZODone HCL 100 MG TABLET (FP) PO SCH (22:12)
[2018-10-20] MEDS: ATORVASTATIN CA 10 MG TABLET (FP) PO SCH (22:12)
[2018-10-20] MEDS: QUEtiapine FUMARATE 50 MG TABLET PO SCH (22:12)
[2018-10-20] MEDS: QUEtiapine FUMARATE 100 MG TABLET (FP) PO SCH (22:12)
[2018-10-21] MEDS ORDERED: diazePAM 5 MG TABLET PO ONE (06:00)
--- NOTE | 2018-10-21 09:01 | DS ---
[facility] Detox Discharge Summary Admission Date: 10/18/18 Discharge Date: 10/21/18 - History Present History: Alcohol Dependence, Cocaine Dependence - Physical Exam Results Vital Signs: Vital Signs Temperature 97.0 F L 10/21/18 06:36 Pulse Rate 58 L 10/21/18 06:36 Respiratory Rate 18 10/21/18 06:36 Blood Pressure 96/60 10/21/18 06:36 O2 Sat by Pulse Oximetry (%) - Treatment Hospital Course: Detox Protocol Followed, Detoxed Safely, Responded well, Discharged Condition Good - Medication Discharge Medications: Ambulatory Orders Albuterol Sulfate [Proventil HFA Inhaler -] 2 inh PO QID PRN #1 hfa.aer.ad 02/01 Budesonide/Formeterol Fumarate [SYMBICORT 160/4.5mcg -] 1 inh PO BID 09/05/18 Prazosin HCl [Minipress -] 2 mg PO HS 09/05/18 Quetiapine Fumarate [Seroquel -] 50 mg PO HS #30 tablet 09/19/18 traZODone HCL [Trazodone HCl] 100 mg PO HS #30 tablet 09/19/18 Atorvastatin Ca [Lipitor] 10 mg PO HS #14 tablet 09/20/18 Lisinopril 10 mg PO DAILY #14 tablet 09/20/18 Quetiapine Fumarate [Seroquel] 100 mg PO HS 10/18/18 - Diagnosis (1) Alcohol dependence with uncomplicated withdrawal Current Visit: No Status: Acute (2) Cocaine dependence, uncomplicated Current Visit: No Status: Acute (3) DM Diabetes mellitus type 2 Current Visit: No Status: Chronic (4) Essential hypertension Current Visit: No Status: Chronic (5) History of asthma Current Visit: No Status: Chronic - AMA Did Patient Leave Against Medical Advice: No
[2018-10-21] MEDS: PRENATAL VITAMINS W/ FOLIC ACID TABLET (FP) PO SCH (10:11)
[2018-10-21] MEDS: LISINOPRIL 10 MG TABLET (FP) PO SCH (10:11)
[2018-10-21] MEDS: BUDESONIDE/FORMETEROL FUMARATE 160/4.5 mcg INHALER IH SCH (10:11)
[2018-10-21 11:35] VITALS: BP 116/82; PULSE 82; TEMP 98.1
== END 2018-10-21 11:12 | disposition other institution (70) | DRG 774 ==
LOC: YASAS 09:23 → Y6N 12:32
PROVIDERS: ADMIT Surgery; ATTEND Surgery
PROC: HZ2ZZZZ Detoxification Services for Substance Abuse Treatment (ICD-10-PCS; principal; 2018-10-18)
DX: F10.230 Alcohol dependence with withdrawal, uncomplicated (principal); F14.20 Cocaine dependence, uncomplicated; F33.1 Major depressive disorder, recurrent, moderate; F19.24 Other psychoactive substance dependence with psychoactive substance-induced mood disorder; F19.282 Other psychoactive substance dependence with psychoactive substance-induced sleep disorder; F43.10 Post-traumatic stress disorder, unspecified; I10 Essential (primary) hypertension; E11.9 Type 2 diabetes mellitus without complications; E78.00 Pure hypercholesterolemia, unspecified; J45.909 Unspecified asthma, uncomplicated; Z91.5 Personal history of self-harm
CPT/HCPCS: 36415; 80053; 82962; 85027; 86593

== ENCOUNTER 2018-10-21 11:17 | Inpatient (IN) | payer OTHER ==
[2018-10-21] MEDS ORDERED: ALBUTEROL SO4 8 GM HFA INHALER IH PRN ×2 (12:30→15:38)
[2018-10-21] MEDS ORDERED: IBUPROFEN 400 MG TABLET (FP) PO PRN ×2 (12:35→15:17)
[2018-10-21] MEDS ORDERED: MAGNESIUM HYDROX 2400MG/30ML ORAL SUSPENSION 30 ML CUP PO PRN ×2 (12:35→15:17)
[2018-10-21] MEDS ORDERED: MAG HYDROX/AL HYDROX/SIMETH 30 ML UNIT-DOSE CUP PO PRN ×2 (12:35→15:17)
[2018-10-21] MEDS ORDERED: P-EPHED 60MG/TRIPROLIDI 2.5MG TABLET PO PRN ×2 (12:35→15:17)
[2018-10-21] MEDS ORDERED: MENTHOL/PHENOL 1 EACH UD MM PRN ×2 (12:35→15:17)
[2018-10-21] MEDS ORDERED: MAGNESIUM CITRATE 300 ML BOTTLE PO PRN ×2 (12:35→15:17)
[2018-10-21] MEDS ORDERED: ACETAMINOPHEN 325 MG TABLET (FP) PO PRN ×2 (12:35→15:17)
[2018-10-21] MEDS ORDERED: guaiFENesin 200 MG/10 ML 10 ML UNIT-DOSE CUPS PO PRN ×2 (12:35→15:17)
[2018-10-21] MEDS ORDERED: LOPERAMIDE HCL 2 MG CAPSULE PO PRN ×2 (12:35→15:17)
[2018-10-21] MEDS: QUEtiapine FUMARATE 50 MG TABLET PO SCH (21:29)
[2018-10-21] MEDS: PRAZOSIN HCL 1 MG CAPSULE PO SCH (21:29)
[2018-10-21] MEDS: THIAMINE HCL 100 MG TABLET (FP) PO SCH (21:30)
[2018-10-21] MEDS: ATORVASTATIN CA 10 MG TABLET (FP) PO SCH (21:30)
[2018-10-21] MEDS: MELATONIN 5 MG TABLETS PO PRN (21:31)
[2018-10-21] MEDS: hydrOXYzine PAMOATE 25 MG CAPSULE (FP) PO PRN (21:31)
[2018-10-21] MEDS ORDERED: PRAZOSIN HCL 1 MG CAPSULE PO SCH (22:00)
[2018-10-21] MEDS ORDERED: QUEtiapine FUMARATE 50 MG TABLET PO SCH (22:00)
[2018-10-21] MEDS ORDERED: MELATONIN 5 MG TABLETS PO PRN (22:00)
[2018-10-21] MEDS ORDERED: THIAMINE HCL 100 MG TABLET (FP) PO SCH (22:00)
[2018-10-21] MEDS ORDERED: ATORVASTATIN CA 10 MG TABLET (FP) PO SCH (22:00)
[2018-10-21] MEDS ORDERED: BUDESONIDE/FORMETEROL FUMARATE 160/4.5 mcg INHALER IH SCH (22:00)
[2018-10-21] MEDS ORDERED: QUEtiapine FUMARATE 100 MG TABLET (FP) PO SCH ×2 (22:00)
[2018-10-21] MEDS ORDERED: traZODone HCL 100 MG TABLET (FP) PO SCH (22:00)
[2018-10-21] MEDS: BUDESONIDE/FORMETEROL FUMARATE 160/4.5 mcg INHALER IH SCH (22:28)
[2018-10-22] MEDS ORDERED: PRENATAL VITAMINS W/ FOLIC ACID TABLET (FP) PO SCH (10:00)
[2018-10-22] MEDS ORDERED: LISINOPRIL 10 MG TABLET (FP) PO SCH (10:00)
[2018-10-22] MEDS: PRENATAL VITAMINS W/ FOLIC ACID TABLET (FP) PO SCH (10:24)
[2018-10-22] MEDS: LISINOPRIL 10 MG TABLET (FP) PO SCH (10:24)
[2018-10-22] MEDS: BUDESONIDE/FORMETEROL FUMARATE 160/4.5 mcg INHALER IH SCH ×2 (10:25→21:31)
--- NOTE | 2018-10-22 12:15 | CONSULT ---
[facility] Psychiatric Consult - Data Date of interview: 10/22/18 Admission source: Transfer from [address] [place] [address]. Identifying data: Came to see this patient. Mr Mayorga completed detoxification on [address] [place] [address]. Patient is now at [address] for rehabilitative care. No new issues. Mental status remains stable. Request for consult was entered in error. Issue of medications : already resolved prior to arrival of psychiatric student union consultant. Facilities And Grounds Director had a brief interaction with the patient. Doing fine. Sleeps well. Adequate appetite. Cooperative with staff. Adherent to treatment plan and unit rules. Baseline mental status. Continue rehabilitation.
[2018-10-22] MEDS: ATORVASTATIN CA 10 MG TABLET (FP) PO SCH (21:29)
[2018-10-22] MEDS: MELATONIN 5 MG TABLETS PO PRN (21:29)
[2018-10-22] MEDS: THIAMINE HCL 100 MG TABLET (FP) PO SCH (21:29)
[2018-10-22] MEDS: PRAZOSIN HCL 1 MG CAPSULE PO SCH (21:29)
[2018-10-22] MEDS: QUEtiapine FUMARATE 50 MG TABLET PO SCH (21:29)
[2018-10-23] MEDS: PRENATAL VITAMINS W/ FOLIC ACID TABLET (FP) PO SCH (12:08)
[2018-10-23] MEDS: LISINOPRIL 10 MG TABLET (FP) PO SCH (12:08)
[2018-10-23] MEDS: BUDESONIDE/FORMETEROL FUMARATE 160/4.5 mcg INHALER IH SCH ×2 (12:08→21:26)
--- NOTE | 2018-10-23 17:17 | PN ---
[facility] Progress Note Note: patient requested regular diet
[2018-10-23] MEDS: hydrOXYzine PAMOATE 25 MG CAPSULE (FP) PO PRN (21:23)
[2018-10-23] MEDS: ATORVASTATIN CA 10 MG TABLET (FP) PO SCH (21:24)
[2018-10-23] MEDS: QUEtiapine FUMARATE 50 MG TABLET PO SCH (21:24)
[2018-10-23] MEDS: PRAZOSIN HCL 1 MG CAPSULE PO SCH (21:24)
[2018-10-23] MEDS: MELATONIN 5 MG TABLETS PO PRN (21:24)
[2018-10-23] MEDS: THIAMINE HCL 100 MG TABLET (FP) PO SCH (21:24)
[2018-10-24] MEDS: LISINOPRIL 10 MG TABLET (FP) PO SCH (09:39)
[2018-10-24] MEDS: PRENATAL VITAMINS W/ FOLIC ACID TABLET (FP) PO SCH (09:39)
[2018-10-24] MEDS: BUDESONIDE/FORMETEROL FUMARATE 160/4.5 mcg INHALER IH SCH ×2 (09:40→22:37)
--- NOTE | 2018-10-24 13:26 | PN ---
[facility] Progress Note Note: Patient seen for c/o headache and intermittent sweating. Patient reported to provider when his pressure is elevated he has such symptoms. Patient denies chest pain and SOB at this time. PMH includes HTN, HLD. Vital Signs Temperature 97.5 F L 10/24/18 06:48 Pulse Rate 75 10/24/18 06:48 Respiratory Rate 18 10/24/18 06:48 Blood Pressure 107/78 10/24/18 06:48 O2 Sat by Pulse Oximetry (%) Vital Signs (72 hours) 10/21/18 10/22/18 10/22/18 21:00 00:30 03:30 Temperature Pulse Rate 69 Respiratory 18 18 18 Rate Blood Pressure 142/93 10/22/18 10/22/18 10/23/18 06:52 22:00 00:30 Temperature 97.3 F L 97.3 F L Pulse Rate 81 60 Respiratory 18 18 18 Rate Blood Pressure 101/64 149/96 10/23/18 10/23/18 10/24/18 03:30 07:00 00:30 Temperature 97.7 F Pulse Rate 81 Respiratory 18 18 18 Rate Blood Pressure 119/87 10/24/18 10/24/18 03:30 06:48 Temperature 97.5 F L Pulse Rate 75 Respiratory 18 18 Rate Blood Pressure 107/78 pe: Alert and oriented x 3 +facial flushing, mild sweating on forehead skin intact +perrla, eoms intact bl ext full rom, no visible edema amb ad chhaya A/P: Hx of HTN with episodes of elevated BP will increase lisinopril to 20mg starting in am GUIDO diet continue to monitor
[2018-10-24] MEDS: LISINOPRIL 20 MG TABLET (FP) PO SCH (13:58)
[2018-10-24] MEDS: QUEtiapine FUMARATE 50 MG TABLET PO SCH (21:20)
[2018-10-24] MEDS: PRAZOSIN HCL 1 MG CAPSULE PO SCH (21:20)
[2018-10-24] MEDS: ATORVASTATIN CA 10 MG TABLET (FP) PO SCH (21:20)
[2018-10-24] MEDS: THIAMINE HCL 100 MG TABLET (FP) PO SCH (21:20)
[2018-10-24] MEDS ORDERED: cloNIDine HCL 0.1 MG TABLET PO ONE (21:57)
[2018-10-25] MEDS: LISINOPRIL 20 MG TABLET (FP) PO SCH (10:23)
[2018-10-25] MEDS: BUDESONIDE/FORMETEROL FUMARATE 160/4.5 mcg INHALER IH SCH ×2 (10:24→21:17)
[2018-10-25] MEDS: PRENATAL VITAMINS W/ FOLIC ACID TABLET (FP) PO SCH (10:24)
[2018-10-25] MEDS: THIAMINE HCL 100 MG TABLET (FP) PO SCH (21:15)
[2018-10-25] MEDS: ATORVASTATIN CA 10 MG TABLET (FP) PO SCH (21:16)
[2018-10-25] MEDS: QUEtiapine FUMARATE 50 MG TABLET PO SCH (21:16)
[2018-10-25] MEDS: MELATONIN 5 MG TABLETS PO PRN (21:16)
[2018-10-25] MEDS: PRAZOSIN HCL 1 MG CAPSULE PO SCH (21:17)
[2018-10-26] MEDS: PRENATAL VITAMINS W/ FOLIC ACID TABLET (FP) PO SCH (10:14)
[2018-10-26] MEDS: LISINOPRIL 20 MG TABLET (FP) PO SCH (10:14)
[2018-10-26] MEDS: BUDESONIDE/FORMETEROL FUMARATE 160/4.5 mcg INHALER IH SCH ×2 (10:14→22:12)
[2018-10-26] MEDS: QUEtiapine FUMARATE 50 MG TABLET PO SCH (22:11)
[2018-10-26] MEDS: MELATONIN 5 MG TABLETS PO PRN (22:11)
[2018-10-26] MEDS: PRAZOSIN HCL 1 MG CAPSULE PO SCH (22:12)
[2018-10-26] MEDS: THIAMINE HCL 100 MG TABLET (FP) PO SCH (22:12)
[2018-10-26] MEDS: ATORVASTATIN CA 10 MG TABLET (FP) PO SCH (22:12)
[2018-10-27] MEDS: PRENATAL VITAMINS W/ FOLIC ACID TABLET (FP) PO SCH (09:46)
[2018-10-27] MEDS: LISINOPRIL 20 MG TABLET (FP) PO SCH (09:46)
[2018-10-27] MEDS: BUDESONIDE/FORMETEROL FUMARATE 160/4.5 mcg INHALER IH SCH ×2 (09:47→21:36)
--- NOTE | 2018-10-27 12:32 | PN ---
Psychiatric Progress Note Vital Signs: Vital Signs Period Temp Pulse Resp BP Sys/Lim Pulse Ox Last 24 Hr 97.6 F 64-79 18- 123-146/83-89 Date of Session: 10/27/18 Chief Complaint:: " i'm having difficulty sleeping." ROS: Patient is coherent, alert and oriented X3. Current Medications: Active Medications Generic Name Dose Route Start Last Admin Trade Name Freq PRN Reason Stop Dose Admin Acetaminophen 650 mg 10/21/18 15:17 Tylenol - PO Q4H PRN FEVER Al Hydroxide/Mg Hydroxide 30 ml 10/21/18 15:17 Mylanta Oral Suspension - PO Q6H PRN DYSPEPSIA Albuterol Sulfate 2 puff 10/21/18 15:38 Ventolin Hfa Inhaler - IH Q4H PRN SHORT OF BREATH/WHEEZING Atorvastatin Calcium 10 mg 10/21/18 22:00 10/26/18 22:12 Lipitor - PO 10 mg HS OLIVER Administration Budesonide/Formoterol Fumarate 2 puff 10/21/18 22:00 10/27/18 09:47 Symbicort 160/4.5mcg - IH Not Given BID OLIVER Eucalyptus/Menthol/Phenol/Sorbitol 1 each 10/21/18 15:17 Cepastat Lozenge - MM Q4H PRN SORE THROAT Guaifenesin 10 ml 10/21/18 15:17 Robitussin - PO Q6H PRN COUGH Hydroxyzine Pamoate 25 mg 10/21/18 15:17 10/23/18 21:23 Vistaril - PO 25 mg Q4H PRN Administration AGITATION Ibuprofen 400 mg 10/21/18 15:17 Motrin - PO Q6H PRN Pain Level 4-6 Lisinopril 20 mg 10/24/18 14:00 10/27/18 09:46 Prinivil PO 20 mg DAILY OLIVER Administration Loperamide HCl 4 mg 10/21/18 15:17 Imodium - PO Q6H PRN DIARRHEA Magnesium Citrate 300 ml 10/21/18 15:17 Citroma - PO Q48H PRN CONSTIPATION Magnesium Hydroxide 30 ml 10/21/18 15:17 Milk Of Magnesia - PO DAILY PRN CONSTIPATION Melatonin 5 mg 10/21/18 22:00 10/26/18 22:11 Melatonin PO 5 mg HS PRN Administration INSOMNIA Prazosin HCl 2 mg 10/21/18 22:00 10/26/18 22:12 Minipress - PO 2 mg HS OLIVER Administration Multivit/Folic Acid/Iron 1 tab 10/22/18 10:00 10/27/18 09:46 Vitamins (Sjr) - PO 1 tab DAILY OLIVER Administration Pseudoephedrine/Triprolidine 1 combo 10/21/18 15:17 Actifed - PO TID PRN NASAL CONGESTION Quetiapine Fumarate 150 mg 10/21/18 22:00 10/26/18 22:11 Seroquel - PO 150 mg HS OLIVER Administration Thiamine HCl 100 mg 10/21/18 22:00 10/26/18 22:12 Vitamin B1 - PO 100 mg HS OLIVER Administration Medication(s) Change(s): Yes. Current Side Effect: No Lab tests ordered: No Lab tests reviewed: Yes Provider note:: Patient reports poor sleep. States he was receiving Seroquel 150mg HS + Trazodone 100mg HS while in detox. Dr. Alejo's note read and and appreciated. Notes reviewed and noted that patient was ordered seroquel 150mg + Trazodone 100mg HS. Will order trazodone 100mg HS. Benefits and side effects discussed. Verbal consent given. Total face to face time:: 25 Mental Status Exam - Mental Status Exam Alert and Oriented to: Time, Place, Person Cognitive Function: Good Patient Appearance: Well Groomed Mood: Euthymic Affect: Appropriate Patient Behavior: Appropriate, Cooperative Speech Pattern: Appropriate Voice Loudness: Normal Thought Process: Goal Oriented Thought Disorder: Not Present Hallucinations: Denies Suicidal Ideation: Denies Homicidal Ideation: Denies Insight/Judgement: Poor Sleep: Poorly Appetite: Fair Muscle strength/Tone: Normal Gait/Station: Normal Psychiatric Treatment Plan - Problem List (1) Substance induced mood disorder Current Visit: No (2) Substance-induced sleep disorder Current Visit: Yes (3) Post traumatic stress disorder (PTSD) Current Visit: Yes Comment: As per history. (4) Alcohol dependence Current Visit: Yes (5) Cocaine dependence Current Visit: Yes (6) MDD (major depressive disorder), recurrent episode Current Visit: Yes
[2018-10-27] MEDS: THIAMINE HCL 100 MG TABLET (FP) PO SCH (21:33)
[2018-10-27] MEDS: traZODone HCL 100 MG TABLET (FP) PO SCH (21:34)
[2018-10-27] MEDS: ATORVASTATIN CA 10 MG TABLET (FP) PO SCH (21:34)
[2018-10-27] MEDS: PRAZOSIN HCL 1 MG CAPSULE PO SCH (21:34)
[2018-10-27] MEDS: QUEtiapine FUMARATE 50 MG TABLET PO SCH (21:34)
[2018-10-27] MEDS: MELATONIN 5 MG TABLETS PO PRN (21:34)
[2018-10-28] MEDS: LISINOPRIL 20 MG TABLET (FP) PO SCH (09:55)
[2018-10-28] MEDS: PRENATAL VITAMINS W/ FOLIC ACID TABLET (FP) PO SCH (09:55)
[2018-10-28] MEDS: BUDESONIDE/FORMETEROL FUMARATE 160/4.5 mcg INHALER IH SCH ×2 (10:47→21:46)
[2018-10-28] MEDS: QUEtiapine FUMARATE 50 MG TABLET PO SCH (21:45)
[2018-10-28] MEDS: THIAMINE HCL 100 MG TABLET (FP) PO SCH (21:45)
[2018-10-28] MEDS: traZODone HCL 100 MG TABLET (FP) PO SCH (21:46)
[2018-10-28] MEDS: ATORVASTATIN CA 10 MG TABLET (FP) PO SCH (21:46)
[2018-10-28] MEDS: PRAZOSIN HCL 1 MG CAPSULE PO SCH (22:16)
[2018-10-29] MEDS: PRENATAL VITAMINS W/ FOLIC ACID TABLET (FP) PO SCH (10:33)
[2018-10-29] MEDS: LISINOPRIL 20 MG TABLET (FP) PO SCH (10:33)
[2018-10-29] MEDS: BUDESONIDE/FORMETEROL FUMARATE 160/4.5 mcg INHALER IH SCH ×2 (10:34→23:01)
[2018-10-29] MEDS: PRAZOSIN HCL 1 MG CAPSULE PO SCH (21:30)
[2018-10-29] MEDS: THIAMINE HCL 100 MG TABLET (FP) PO SCH (21:30)
[2018-10-29] MEDS: QUEtiapine FUMARATE 50 MG TABLET PO SCH (21:30)
[2018-10-29] MEDS: ATORVASTATIN CA 10 MG TABLET (FP) PO SCH (21:30)
[2018-10-29] MEDS: traZODone HCL 100 MG TABLET (FP) PO SCH (21:30)
[2018-10-30] MEDS: PRENATAL VITAMINS W/ FOLIC ACID TABLET (FP) PO SCH (10:49)
[2018-10-30] MEDS: BUDESONIDE/FORMETEROL FUMARATE 160/4.5 mcg INHALER IH SCH ×2 (10:50→22:16)
[2018-10-30] MEDS: LISINOPRIL 20 MG TABLET (FP) PO SCH (10:50)
[2018-10-30] MEDS: THIAMINE HCL 100 MG TABLET (FP) PO SCH (22:16)
[2018-10-30] MEDS: ATORVASTATIN CA 10 MG TABLET (FP) PO SCH (22:17)
[2018-10-30] MEDS: QUEtiapine FUMARATE 50 MG TABLET PO SCH (22:18)
[2018-10-30] MEDS: traZODone HCL 100 MG TABLET (FP) PO SCH (22:18)
[2018-10-30] MEDS: PRAZOSIN HCL 1 MG CAPSULE PO SCH (22:19)
[2018-10-30] MEDS: MELATONIN 5 MG TABLETS PO PRN (22:20)
[2018-10-31] MEDS ORDERED: MECLIZINE HCL 12.5 MG TABLET PO PRN (09:34)
--- NOTE | 2018-10-31 09:40 | PN ---
[facility] Progress Note Note: Patient seen for c/o dizziness which he says he was treated for with meclizine in the past. Patient states dizziness occurs sporadically but denies nausea, chest pain, headache, sob and vomiting. Vital Signs Temperature 97.3 F L 10/31/18 07:08 Pulse Rate 85 10/31/18 07:08 Respiratory Rate 20 10/31/18 07:08 Blood Pressure 126/83 10/31/18 07:08 O2 Sat by Pulse Oximetry (%) PE: alert and oriented x 3 skin warm and dry +perrla, eoms intact bl cranial nerves 1-x11 grossly intact ext full rom, no tremors amb ad chhaya with steady gait A/P; Hx of Dizziness will order meclizine 12.5 mg po bid prn for symptomatic treatment monitor clinically
[2018-10-31] MEDS: LISINOPRIL 20 MG TABLET (FP) PO SCH (10:11)
[2018-10-31] MEDS: BUDESONIDE/FORMETEROL FUMARATE 160/4.5 mcg INHALER IH SCH ×2 (10:12→21:35)
[2018-10-31] MEDS: PRENATAL VITAMINS W/ FOLIC ACID TABLET (FP) PO SCH (10:12)
[2018-10-31] MEDS ORDERED: CYCLOBENZAPRINE HCL 10 MG TABLET (FP) PO PRN (12:33)
[2018-10-31] MEDS: QUEtiapine FUMARATE 50 MG TABLET PO SCH (21:33)
[2018-10-31] MEDS: ATORVASTATIN CA 10 MG TABLET (FP) PO SCH (21:33)
[2018-10-31] MEDS: traZODone HCL 100 MG TABLET (FP) PO SCH (21:34)
[2018-10-31] MEDS: THIAMINE HCL 100 MG TABLET (FP) PO SCH (21:34)
[2018-10-31] MEDS: PRAZOSIN HCL 1 MG CAPSULE PO SCH (21:34)
[2018-11-01] MEDS: PRENATAL VITAMINS W/ FOLIC ACID TABLET (FP) PO SCH (09:53)
[2018-11-01] MEDS: LISINOPRIL 20 MG TABLET (FP) PO SCH (09:53)
[2018-11-01] MEDS: BUDESONIDE/FORMETEROL FUMARATE 160/4.5 mcg INHALER IH SCH ×2 (09:55→21:52)
--- NOTE | 2018-11-01 13:24 | PN ---
S Progress Note Note: Patient complains of sleeping poorly despite taking Seroquel 150 mg/hs and Trazadone 100 mg/hs. Requests to increase Trazadone dosage to 150 mg/hs
[2018-11-01] MEDS: PRAZOSIN HCL 1 MG CAPSULE PO SCH (21:51)
[2018-11-01] MEDS: QUEtiapine FUMARATE 50 MG TABLET PO SCH (21:52)
[2018-11-01] MEDS: THIAMINE HCL 100 MG TABLET (FP) PO SCH (21:52)
[2018-11-01] MEDS: ATORVASTATIN CA 10 MG TABLET (FP) PO SCH (21:52)
[2018-11-01] MEDS: MELATONIN 5 MG TABLETS PO PRN (21:54)
[2018-11-02] MEDS: LISINOPRIL 20 MG TABLET (FP) PO SCH (09:55)
[2018-11-02] MEDS: PRENATAL VITAMINS W/ FOLIC ACID TABLET (FP) PO SCH (09:55)
[2018-11-02] MEDS: BUDESONIDE/FORMETEROL FUMARATE 160/4.5 mcg INHALER IH SCH ×2 (09:55→22:01)
[2018-11-02] MEDS: ATORVASTATIN CA 10 MG TABLET (FP) PO SCH (21:14)
[2018-11-02] MEDS: QUEtiapine FUMARATE 50 MG TABLET PO SCH (21:14)
[2018-11-02] MEDS: THIAMINE HCL 100 MG TABLET (FP) PO SCH (21:14)
[2018-11-02] MEDS: PRAZOSIN HCL 1 MG CAPSULE PO SCH (21:15)
[2018-11-02] MEDS: traZODone HCL 50 MG TABLET (FP) PO SCH (21:15)
[2018-11-03] MEDS ORDERED: PT OWN MED DRAWER 7, Y5N ONE ×2 (09:02→13:05)
[2018-11-03] MEDS: PRENATAL VITAMINS W/ FOLIC ACID TABLET (FP) PO SCH (10:27)
[2018-11-03] MEDS: BUDESONIDE/FORMETEROL FUMARATE 160/4.5 mcg INHALER IH SCH ×2 (10:27→22:15)
[2018-11-03] MEDS: LISINOPRIL 20 MG TABLET (FP) PO SCH (10:28)
[2018-11-03] MEDS: THIAMINE HCL 100 MG TABLET (FP) PO SCH (22:12)
[2018-11-03] MEDS: QUEtiapine FUMARATE 50 MG TABLET PO SCH (22:12)
[2018-11-03] MEDS: PRAZOSIN HCL 1 MG CAPSULE PO SCH (22:13)
[2018-11-03] MEDS: ATORVASTATIN CA 10 MG TABLET (FP) PO SCH (22:13)
[2018-11-03] MEDS: traZODone HCL 50 MG TABLET (FP) PO SCH (22:13)
[2018-11-04] MEDS: LISINOPRIL 20 MG TABLET (FP) PO SCH (09:53)
[2018-11-04] MEDS: PRENATAL VITAMINS W/ FOLIC ACID TABLET (FP) PO SCH (09:53)
[2018-11-04] MEDS: BUDESONIDE/FORMETEROL FUMARATE 160/4.5 mcg INHALER IH SCH ×2 (09:53→21:22)
[2018-11-04] MEDS: QUEtiapine FUMARATE 50 MG TABLET PO SCH (21:21)
[2018-11-04] MEDS: traZODone HCL 50 MG TABLET (FP) PO SCH (21:22)
[2018-11-04] MEDS: ATORVASTATIN CA 10 MG TABLET (FP) PO SCH (21:22)
[2018-11-04] MEDS: PRAZOSIN HCL 1 MG CAPSULE PO SCH (21:22)
[2018-11-04] MEDS: THIAMINE HCL 100 MG TABLET (FP) PO SCH (21:22)
[2018-11-05] MEDS: BUDESONIDE/FORMETEROL FUMARATE 160/4.5 mcg INHALER IH SCH ×2 (10:00→21:28)
[2018-11-05] MEDS: PRENATAL VITAMINS W/ FOLIC ACID TABLET (FP) PO SCH (10:00)
[2018-11-05] MEDS: LISINOPRIL 20 MG TABLET (FP) PO SCH (10:00)
[2018-11-05] MEDS: QUEtiapine FUMARATE 50 MG TABLET PO SCH (21:28)
[2018-11-05] MEDS: ATORVASTATIN CA 10 MG TABLET (FP) PO SCH (21:28)
[2018-11-05] MEDS: PRAZOSIN HCL 1 MG CAPSULE PO SCH (21:28)
[2018-11-05] MEDS: traZODone HCL 50 MG TABLET (FP) PO SCH (21:28)
[2018-11-05] MEDS: THIAMINE HCL 100 MG TABLET (FP) PO SCH (21:28)
[2018-11-06] MEDS ORDERED: PT OWN MED DRAWER 7, Y5N ONE (08:37)
[2018-11-06] MEDS: PRENATAL VITAMINS W/ FOLIC ACID TABLET (FP) PO SCH (10:00)
[2018-11-06] MEDS: LISINOPRIL 20 MG TABLET (FP) PO SCH (10:00)
[2018-11-06] MEDS: BUDESONIDE/FORMETEROL FUMARATE 160/4.5 mcg INHALER IH SCH ×2 (10:01→21:57)
[2018-11-06] MEDS: traZODone HCL 50 MG TABLET (FP) PO SCH (21:54)
[2018-11-06] MEDS: QUEtiapine FUMARATE 50 MG TABLET PO SCH (21:55)
[2018-11-06] MEDS: ATORVASTATIN CA 10 MG TABLET (FP) PO SCH (21:55)
[2018-11-06] MEDS: PRAZOSIN HCL 1 MG CAPSULE PO SCH (21:56)
[2018-11-06] MEDS: THIAMINE HCL 100 MG TABLET (FP) PO SCH (21:57)
[2018-11-07] MEDS: LISINOPRIL 20 MG TABLET (FP) PO SCH (10:07)
[2018-11-07] MEDS: PRENATAL VITAMINS W/ FOLIC ACID TABLET (FP) PO SCH (10:07)
[2018-11-07] MEDS: BUDESONIDE/FORMETEROL FUMARATE 160/4.5 mcg INHALER IH SCH ×2 (10:08→21:10)
--- NOTE | 2018-11-07 10:14 | PN ---
[facility] Progress Note Note: PATIENT SEEN FOR C/O LEFT FOOT PAIN, WHICH HE REPORTS HAVING X ONE WEEK. PATIENT DENIES RECENT INJURY TO FOOT BUT STATES HE WAS DEALING WITH PAIN ON HIS OWN BUT NOW PAIN HAS WORSENED. PAIN LEVEL 5/10, DULL ACHE AND NON RADIATING. Laboratory Tests 11/03/18 11/03/18 09:00 09:00 Hep C Ab Diagnostic <0.1 HIV 1&2 Antibody Screen Negative HIV P24 Antigen Negative Vital Signs Temperature 97.9 F 11/07/18 06:50 Pulse Rate 92 H 11/07/18 06:50 Respiratory Rate 18 11/07/18 06:50 Blood Pressure 108/67 11/07/18 06:50 O2 Sat by Pulse Oximetry (%) PE: ALERT AND ORIENTED X 3 SKIN WARM AND DRY EXT FULL ROM, AMB INDEPENDENTLY LEFT FOOT WITHOUT SWELLING AND REDNESS, ABLE TO BEAR WEIGHT A/P: LEFT FOOT PAIN WILL CONTINUE PRN APAP/IBU ORDERED XRAY OF LEFT FOOT/ANKLE MONITOR CLINICALLY
--- NOTE | 2018-11-07 14:55 | PN ---
[facility] Progress Note Note: Patient is scheduled for discharged tomorrow. Scripts for 30 dayssupply of medicationsSeroquel 150 mg/hs, Trazadone 150 mg/hs) will be electronically transmitted to [facility] at [address] [place], [place] [id number]
[2018-11-07] MEDS: QUEtiapine FUMARATE 50 MG TABLET PO SCH (21:08)
[2018-11-07] MEDS: traZODone HCL 50 MG TABLET (FP) PO SCH (21:08)
[2018-11-07] MEDS: ATORVASTATIN CA 10 MG TABLET (FP) PO SCH (21:09)
[2018-11-07] MEDS: THIAMINE HCL 100 MG TABLET (FP) PO SCH (21:09)
[2018-11-07] MEDS: PRAZOSIN HCL 1 MG CAPSULE PO SCH (21:10)
[2018-11-08 07:07] VITALS: BP 102/74; PULSE 71; TEMP 97.2
--- NOTE | 2018-11-08 09:12 | PN ---
[facility] Progress Note (SOAP) Subjective: Patient to be discharged today. Hospital Course: Patient attended all appropriate group meetings, had a session with Psychiatric provider, individual session with his counselor, and was adherent to his treatment plan and his medication regimen. Patient requested HEP C and HIV testing while in rehab, both were negative. He also needed an x-ray of his feet because of an increase in pain from an old injury, but the x-ray findings were insignificant, with some arthritis in the left toes. Objective: PHYSICAL General:appropriate, able to make needs known, answer questions Skin: clear, color consistent throughout extremities and trunk Lung: clear, respirations unlabored Heart: S1 S2 audible, regular Abd: Soft, non-tender, non-distended, +BS Neuro: no neurological deficits noted, CN2-12 intact MSK: Full weight bearing, full ROM, Steady gait. 11/08/18 10:55 Vital Signs (72 hours) 11/05/18 11/06/18 11/06/18 22:00 00:30 03:30 Temperature Pulse Rate 77 Respiratory 18 18 18 Rate Blood Pressure 133/85 11/06/18 11/06/18 11/07/18 06:48 22:00 00:30 Temperature 97.7 F 97.7 F Pulse Rate 89 80 Respiratory 20 18 18 Rate Blood Pressure 112/68 148/90 11/07/18 11/07/18 11/07/18 03:30 06:50 09:30 Temperature 97.9 F Pulse Rate 92 H 83 Respiratory 18 18 18 Rate Blood Pressure 108/67 127/75 11/07/18 11/08/18 11/08/18 20:31 00:30 03:30 Temperature Pulse Rate 79 Respiratory 18 18 18 Rate Blood Pressure 155/98 11/08/18 07:07 Temperature 97.2 F L Pulse Rate 71 Respiratory 18 Rate Blood Pressure 102/74 Assessment: Medically stable for discharge Discharge DX; L foot pain DM2 HTN ETOH dependence Cocaine Dependence 11/08/18 10:57 Plan: Patient will continue treatment at [facility]. He receives primary care from Dr. Watters at [facility]. His prescriptions were transmitted to the pharmacy.
[2018-11-08] MEDS: PRENATAL VITAMINS W/ FOLIC ACID TABLET (FP) PO SCH (09:13)
[2018-11-08] MEDS: LISINOPRIL 20 MG TABLET (FP) PO SCH (09:13)
[2018-11-08] MEDS: BUDESONIDE/FORMETEROL FUMARATE 160/4.5 mcg INHALER IH SCH (09:14)
== END 2018-11-08 09:20 | disposition home or self-care (01) | DRG 772 ==
LOC: YASAS 11:17 → Y3W 11:21
PROVIDERS: ADMIT Neuromusculoskeletal Medicine & OMM; ATTEND Neuromusculoskeletal Medicine & OMM
PROC: HZ42ZZZ Group Counseling for Substance Abuse Treatment, Cognitive-Behavioral (ICD-10-PCS; principal; 2018-10-21)
DX: F10.20 Alcohol dependence, uncomplicated (principal); F14.20 Cocaine dependence, uncomplicated; F33.9 Major depressive disorder, recurrent, unspecified; F19.24 Other psychoactive substance dependence with psychoactive substance-induced mood disorder; F19.282 Other psychoactive substance dependence with psychoactive substance-induced sleep disorder; F43.10 Post-traumatic stress disorder, unspecified; I10 Essential (primary) hypertension; E11.9 Type 2 diabetes mellitus without complications; M79.672 Pain in left foot
CPT/HCPCS: 36415; 73610-TC-LT-FY; 73630-TC-LT; 86803; 87389; J0735

== ENCOUNTER 2019-12-02 09:02 | Inpatient (IN) | payer OTHER ==
--- NOTE | 2019-12-02 10:30 | BHS.RME ---
Substance Use & Tx History - Substance Use History Alcohol Substance amount: / of vodka Frequency of use: Daily Substance route: Oral Date of Last Use: 12/01/19 - Last Treatment Date of last treatment: [facility] 10/19/19 to 10/21/18 Where was last treatment: Detox Physical/Psych/Mental Status - Behavior Eye Contact: Normal - Cooperativeness Cooperativeness: Cooperative - Thinking Thought Processes: Logical Thought content: Future oriented - Physical Health Problems Is patient presently having any pain?: No Does patient presently have any injuries (include location): No Does patient currently have a fever: No CIWA Nausea/Vomitin Muscle Tremors: 2 Anxiety: 3 Agitation: 3 Paroxysmal Sweats: 1-Minimal Palms Moist Orientation: 0-Oriented Tacttile Disturbances: 1-Very Mild Itch/Numbness Auditory Disturbances: 0-None Visual Disturbances: 0-None Headache: 2-Mild CIWA-Ar Total Score: 14
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
[2019-12-02] MEDS ORDERED: METHOCARBAMOL 500 MG TABLET PO PRN (10:48)
[2019-12-02] MEDS ORDERED: ONDANSETRON *ODT* 4 MG TABLET SL ONE (10:48)
[2019-12-02] MEDS ORDERED: MAGNESIUM CITRATE 300 ML BOTTLE PO PRN (10:48)
[2019-12-02] MEDS ORDERED: IBUPROFEN 400 MG TABLET (FP) PO PRN (10:48)
[2019-12-02] MEDS ORDERED: MAG HYDROX/AL HYDROX/SIMETH 30 ML UNIT-DOSE CUP PO PRN (10:48)
[2019-12-02] MEDS ORDERED: ACETAMINOPHEN 325 MG TABLET (FP) PO PRN ×2 (10:48)
[2019-12-02] MEDS ORDERED: chlordiazePOXIDE HCL 25 MG CAPSULE PO PRN (10:48)
[2019-12-02] MEDS ORDERED: MAGNESIUM HYDROX 2400MG/30ML ORAL SUSPENSION 30 ML CUP PO PRN (10:48)
[2019-12-02] MEDS ORDERED: BISMUTH SUBSALICYLATE 524 MG/30 ML UD PO PRN (10:48)
[2019-12-02] MEDS ORDERED: MENTHOL/PHENOL 1 EACH UD MM PRN (10:48)
[2019-12-02 11:58] VITALS: BMI 32.8
[2019-12-02] MEDS ORDERED: ALBUTEROL SO4 HFA INHALER IH PRN (12:37)
[2019-12-02] MEDS ORDERED: cloNIDine HCL 0.1 MG TABLET PO ONE (12:39)
[2019-12-02] MEDS: hydrOXYzine PAMOATE 25 MG CAPSULE (FP) PO SCH ×3 (13:27→22:36)
[2019-12-02] MEDS: chlordiazePOXIDE HCL 25 MG CAPSULE PO SCH ×2 (18:20→22:36)
[2019-12-02] MEDS: THIAMINE HCL 100 MG TABLET (FP) PO SCH (22:35)
[2019-12-02] MEDS: ATORVASTATIN CA 10 MG TABLET (FP) PO SCH (22:35)
[2019-12-02] MEDS: MELATONIN 5 MG TABLETS PO SCH (22:36)
[2019-12-02] MEDS: BUDESONIDE/FORMETEROL FUMARATE 160/4.5 mcg INHALER IH SCH (22:37)
[2019-12-03] MEDS: hydrOXYzine PAMOATE 25 MG CAPSULE (FP) PO SCH ×4 (05:19→18:28)
[2019-12-03] MEDS: chlordiazePOXIDE HCL 25 MG CAPSULE PO SCH ×3 (05:19→18:28)
[2019-12-03] MEDS: LISINOPRIL 10 MG TABLET (FP) PO SCH (10:54)
[2019-12-03 10:55] LABS: HEMATOCRIT 40.1 % (35.4-49); HEMOGLOBIN 13.4 GM/dL (11.7-16.9); MCH 30.5 pg (25.7-33.7); MCHC 33.4 g/dl (32.0-35.9); MEAN CELL VOLUME 91.1 fl (80-96); MEAN PLT VOLUME 8.7 fl (7.5-11.1); PLATELET COUNT 211 K/MM3 (134-434); RDW 15.2 % (11.9-15.9); WHITE BLOOD COUNT 4.5 K/mm3 (4.0-10.0)
[2019-12-03] MEDS: metFORMIN HCL 500 MG TABLET (FP) PO SCH (10:55)
[2019-12-03] MEDS: BUDESONIDE/FORMETEROL FUMARATE 160/4.5 mcg INHALER IH SCH (10:55)
[2019-12-03] MEDS: PRENATAL VITAMINS W/ FOLIC ACID TABLET (FP) PO SCH (10:55)
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
[2019-12-03 11:36] LABS: ALBUMIN 3.1 g/dl (3.4-5.0); BILIRUBIN,TOTAL 0.7 mg/dL (0.2-1); BLOOD UREA NITROGEN 19.2 mg/dL (7-18); CALCIUM 8.6 mg/dL (8.5-10.1); CREATININE 1.3 mg/dL (0.55-1.3); TOT PROT 6.6 g/dl (6.4-8.2)
--- NOTE | 2019-12-03 14:14 | PN ---
[facility] CIWA - CIWA Score Nausea/Vomitin Muscle Tremors: 2 Anxiety: 2 Agitation: 2 Paroxysmal Sweats: 2 Orientation: 0-Oriented Tacttile Disturbances: 1-Very Mild Itch/Numbness Auditory Disturbances: 0-None Visual Disturbances: 0-None Headache: 0-None Present CIWA-Ar Total Score: 11 [facility] Progress Note (SOAP) Subjective: "Feels ok, medication is working ok" Objective: 12/03/19 14:09 Last Vital Signs Temp Pulse Resp BP Pulse Ox 98.8 F 81 19 121/88 97 12/03/19 08:30 12/03/19 08:30 12/03/19 08:30 12/03/19 08:30 12/03/19 07:21 Laboratory Tests 12/02/19 12/02/19 12/03/19 12:11 16:52 08:00 WBC RBC Hgb Hct MCV MCH MCHC RDW Plt Count MPV Sodium Potassium Chloride Carbon Dioxide Anion Gap BUN Creatinine Est GFR (CKD-EPI)AfAm Est GFR (CKD-EPI)NonAf POC Glucometer 91 Random Glucose Calcium Total Bilirubin AST ALT Alkaline Phosphatase Total Protein Albumin Syphilis Serology Non-reactive COVID-19 (ALICE) Not detected 12/03/19 12/03/19 08:00 08:00 WBC 4.5 RBC 4.40 Hgb 13.4 Hct 40.1 MCV 91.1 MCH 30.5 MCHC 33.4 RDW 15.2 Plt Count 211 MPV 8.7 D Sodium 141 Potassium 5.0 Chloride 107 Carbon Dioxide 27 Anion Gap 8 BUN 19.2 H Creatinine 1.3 Est GFR (CKD-EPI)AfAm 73.22 Est GFR (CKD-EPI)NonAf 63.18 POC Glucometer Random Glucose 102 Calcium 8.6 Total Bilirubin 0.7 AST 31 ALT 19 Alkaline Phosphatase 59 Total Protein 6.6 Albumin 3.1 L Syphilis Serology COVID-19 (ALICE) Labs reviewed: azotemia and hypoalbuminemia noted Assessment: 12/03/19 14:10 Withdrawal sxs Noted with azotemia and hypoalbuminemia Plan: Continue detox Encourage PO water intake Azotemia, mild: encourage to drink more water Hypoalbuminemia, mild: encourage diet
[2019-12-03] MEDS ORDERED: QUEtiapine FUMARATE 25 MG TABLET ONE (21:53)
[2019-12-04] MEDS: QUEtiapine FUMARATE 50 MG TABLET PO SCH ×2 (00:08→21:55)
[2019-12-04] MEDS: hydrOXYzine PAMOATE 25 MG CAPSULE (FP) PO SCH ×6 (00:08→21:56)
[2019-12-04] MEDS: traZODone HCL 50 MG TABLET (FP) PO SCH ×2 (00:08→21:56)
[2019-12-04] MEDS: ATORVASTATIN CA 10 MG TABLET (FP) PO SCH ×2 (00:08→21:55)
[2019-12-04] MEDS: BUDESONIDE/FORMETEROL FUMARATE 160/4.5 mcg INHALER IH SCH ×3 (00:08→21:58)
[2019-12-04] MEDS: THIAMINE HCL 100 MG TABLET (FP) PO SCH ×2 (00:08→21:55)
[2019-12-04] MEDS: MELATONIN 5 MG TABLETS PO SCH ×2 (00:08→23:06)
[2019-12-04] MEDS: chlordiazePOXIDE HCL 25 MG CAPSULE PO SCH ×5 (00:08→22:00)
[2019-12-04] MEDS: metFORMIN HCL 500 MG TABLET (FP) PO SCH (06:11)
[2019-12-04] MEDS: LISINOPRIL 10 MG TABLET (FP) PO SCH (10:28)
[2019-12-04] MEDS: PRENATAL VITAMINS W/ FOLIC ACID TABLET (FP) PO SCH (10:29)
--- NOTE | 2019-12-04 13:34 | PN ---
S CIWA - CIWA Score Nausea/Vomitin Muscle Tremors: 2 Anxiety: 2 Agitation: 2 Paroxysmal Sweats: No Perspiration Orientation: 0-Oriented Tacttile Disturbances: 0-None Auditory Disturbances: 5-Severe Hallucinations Visual Disturbances: 0-None Headache: 1-Very Mild CIWA-Ar Total Score: 14 S Progress Note (SOAP) Subjective: alert,irritable,anxious,interrupted sleep,tremor,pain in the body Objective: 12/04/19 13:35 Vital Signs Temperature 97.5 F L 12/04/19 05:16 Pulse Rate 60 12/04/19 05:16 Respiratory Rate 16 12/04/19 05:16 Blood Pressure 106/68 12/04/19 05:16 O2 Sat by Pulse Oximetry (%) 96 12/04/19 05:16 Laboratory Last Values WBC 4.5 K/mm3 (4.0-10.0) 12/03/19 08:00 RBC 4.40 M/mm3 (4.00-5.60) 12/03/19 08:00 Hgb 13.4 GM/dL (11.7-16.9) 12/03/19 08:00 Hct 40.1 % (35.4-49) 12/03/19 08:00 MCV 91.1 fl (80-96) 12/03/19 08:00 MCH 30.5 pg (25.7-33.7) 12/03/19 08:00 MCHC 33.4 g/dl (32.0-35.9) 12/03/19 08:00 RDW 15.2 % (11.9-15.9) 12/03/19 08:00 Plt Count 211 K/MM3 (134-434) 12/03/19 08:00 MPV 8.7 fl (7.5-11.1) D 12/03/19 08:00 Sodium 141 mmol/L (136-145) 12/03/19 08:00 Potassium 5.0 mmol/L (3.5-5.1) 12/03/19 08:00 Chloride 107 mmol/L (98-107) 12/03/19 08:00 Carbon Dioxide 27 mmol/L (21-32) 12/03/19 08:00 Anion Gap 8 MMOL/L (8-16) 12/03/19 08:00 BUN 19.2 mg/dL (7-18) H 12/03/19 08:00 Creatinine 1.3 mg/dL (0.55-1.3) 12/03/19 08:00 Est GFR (CKD-EPI)AfAm 73.22 12/03/19 08:00 Est GFR (CKD-EPI)NonAf 63.18 12/03/19 08:00 POC Glucometer 103 UNITS (80-120) 12/04/19 06:51 Random Glucose 102 mg/dL (74-106) 12/03/19 08:00 Calcium 8.6 mg/dL (8.5-10.1) 12/03/19 08:00 Total Bilirubin 0.7 mg/dL (0.2-1) 12/03/19 08:00 AST 31 U/L (15-37) 12/03/19 08:00 ALT 19 U/L (13-61) 12/03/19 08:00 Alkaline Phosphatase 59 U/L (45-117) 12/03/19 08:00 Total Protein 6.6 g/dl (6.4-8.2) 12/03/19 08:00 Albumin 3.1 g/dl (3.4-5.0) L 12/03/19 08:00 Syphilis Serology Non-reactive (NONREACTIVE) 12/03/19 08:00 COVID-19 (ALICE) Not detected (Not Detected) 12/02/19 12:11 Assessment: 12/04/19 13:36 withdrawal symptom Plan: continue detox librium regimen bgm monitoring metformin 500 ms po daily
[2019-12-05] MEDS ORDERED: chlordiazePOXIDE HCL 10 MG CAPSULE PO PRN
[2019-12-05] MEDS: chlordiazePOXIDE HCL 10 MG CAPSULE PO SCH ×4 (05:32→22:00)
[2019-12-05] MEDS: hydrOXYzine PAMOATE 25 MG CAPSULE (FP) PO SCH (05:32)
[2019-12-05] MEDS: metFORMIN HCL 500 MG TABLET (FP) PO SCH (08:07)
[2019-12-05] MEDS ORDERED: hydrOXYzine PAMOATE 25 MG CAPSULE (FP) PO PRN (09:46)
[2019-12-05] MEDS: PRENATAL VITAMINS W/ FOLIC ACID TABLET (FP) PO SCH (10:58)
[2019-12-05] MEDS: BUDESONIDE/FORMETEROL FUMARATE 160/4.5 mcg INHALER IH SCH ×2 (10:58→21:48)
[2019-12-05] MEDS: LISINOPRIL 10 MG TABLET (FP) PO SCH (10:58)
--- NOTE | 2019-12-05 11:56 | PN ---
[facility] CIWA - CIWA Score Nausea/Vomitin-Mild Nausea/No Vomiting Muscle Tremors: 2 Anxiety: 2 Agitation: 1-Slight > Activity Paroxysmal Sweats: No Perspiration Orientation: 0-Oriented Tacttile Disturbances: 0-None Auditory Disturbances: 0-None Visual Disturbances: 0-None Headache: 1-Very Mild CIWA-Ar Total Score: 7 S Progress Note (SOAP) Subjective: alert,irritable,anxious,interrupted sleep,aching pain Objective: 12/05/19 11:53 Vital Signs Temperature 97.3 F L 12/05/19 08:50 Pulse Rate 69 12/05/19 08:50 Respiratory Rate 19 12/05/19 08:50 Blood Pressure 113/52 L 12/05/19 08:50 O2 Sat by Pulse Oximetry (%) 97 12/05/19 08:50 Assessment: 12/05/19 11:55 withdrawal symptom Plan: continue detox librium regimen,bgm monitoring,metformin 500 mgs po daily,
--- NOTE | 2019-12-05 13:58 | PN ---
[facility] Progress Note Note: Patient is scheduled for discharge tomorrow. Scripts for 30 days supply of medications(Seroquel 150 mg/hs, Trazadone 100 mg/hs) will be electronically transmitted to [facility], [address] [place] [id number]
--- NOTE | 2019-12-05 13:58 | PN ---
[facility] Progress Note Note: patient has less withdrawal symptom,schedule for discharge in am,e prescriptions [facility]
[2019-12-05] MEDS: traZODone HCL 50 MG TABLET (FP) PO SCH (21:44)
[2019-12-05] MEDS: THIAMINE HCL 100 MG TABLET (FP) PO SCH (21:44)
[2019-12-05] MEDS: QUEtiapine FUMARATE 50 MG TABLET PO SCH (21:44)
[2019-12-05] MEDS: ATORVASTATIN CA 10 MG TABLET (FP) PO SCH (21:46)
[2019-12-05] MEDS: MELATONIN 5 MG TABLETS PO SCH (22:29)
[2019-12-06] MEDS ORDERED: chlordiazePOXIDE HCL 10 MG CAPSULE PO SCH (05:00)
[2019-12-06 06:19] VITALS: BP 121/68; PULSE 70; TEMP 97.7
[2019-12-06] MEDS: metFORMIN HCL 500 MG TABLET (FP) PO SCH (07:02)
--- NOTE | 2019-12-06 10:20 | PN ---
S CIWA - CIWA Score Nausea/Vomitin-No Nausea/No Vomiting Muscle Tremors: None Anxiety: 1-Mildly Anxious Agitation: 0-Normal Activity Paroxysmal Sweats: No Perspiration Orientation: 0-Oriented Tacttile Disturbances: 0-None Auditory Disturbances: 0-None Visual Disturbances: 0-None Headache: 0-None Present CIWA-Ar Total Score: 1 [facility] Progress Note (SOAP) Subjective: alert,no complaint Objective: 12/06/19 10:18 Vital Signs Temperature 97.7 F 12/06/19 06:17 Pulse Rate 70 12/06/19 06:17 Respiratory Rate 18 12/06/19 06:17 Blood Pressure 121/68 12/06/19 06:17 O2 Sat by Pulse Oximetry (%) 95 12/06/19 06:17 12/06/19 10:19 bgm 115 Assessment: 12/06/19 10:18 no withdrawal symptom 12/06/19 10:18 Plan: [facility] is stable [facility]
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
[2019-12-07] MEDS ORDERED: chlordiazePOXIDE HCL 10 MG CAPSULE PO ONE (05:00)
== END 2019-12-06 10:27 | disposition home or self-care (01) | DRG 774 ==
LOC: YASAS 09:02 → Y6N 12:36
PROVIDERS: ADMIT Allergy & Immunology; ATTEND Allergy & Immunology
PROC: HZ2ZZZZ Detoxification Services for Substance Abuse Treatment (ICD-10-PCS; principal; 2019-12-02)
DX: F10.230 Alcohol dependence with withdrawal, uncomplicated (principal); F14.20 Cocaine dependence, uncomplicated; F33.9 Major depressive disorder, recurrent, unspecified; F19.282 Other psychoactive substance dependence with psychoactive substance-induced sleep disorder; F43.10 Post-traumatic stress disorder, unspecified; I10 Essential (primary) hypertension; J45.909 Unspecified asthma, uncomplicated; E88.09 Other disorders of plasma-protein metabolism, not elsewhere classified; E11.9 Type 2 diabetes mellitus without complications; Z79.84 Long term (current) use of oral hypoglycemic drugs; R22.31 Localized swelling, mass and lump, right upper limb; Z87.828 Personal history of other (healed) physical injury and trauma; Z91.013 Allergy to seafood; Z91.018 Allergy to other foods; R79.89 Other specified abnormal findings of blood chemistry
CPT/HCPCS: 36415; 80053; 82962; 85027; 86780; J0735; U0003

== ENCOUNTER 2020-01-23 10:47 | Inpatient (IN) | payer OTHER ==
--- NOTE | 2020-01-23 11:09 | BHS.RME ---
Substance Use & Tx History - Substance Use History Alcohol Substance amount: 5X 1/5 bottles of vodka + six pack beer Frequency of use: Daily Substance route: Oral Date of Last Use: 01/22/20 (started age 11) Nicotine Substance amount: former smoker Physical/Psych/Mental Status - Behavior General Behavior: Increased activity (restlessness, agitation) Eye Contact: Normal - Cooperativeness Cooperativeness: Cooperative - Thinking Thought Processes: Tight, Logical, Goal Directed - Physical Health Problems Is patient presently having any pain?: No Does patient presently have any injuries (include location): No Does patient currently have a fever: No Is patient : No CIWA Nausea/Vomitin Muscle Tremors: 2 Anxiety: 2 Agitation: 4-Moderately Restless Paroxysmal Sweats: 4-Forehead w/Sweat Beads Orientation: 0-Oriented Tacttile Disturbances: 0-None Auditory Disturbances: 0-None Visual Disturbances: 0-None Headache: 0-None Present CIWA-Ar Total Score: 14
[2020-01-23 11:16] VITALS: BMI 33.5
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
[2020-01-23] MEDS ORDERED: ALBUTEROL SO4 HFA INHALER IH PRN (11:36)
[2020-01-23] MEDS ORDERED: MAGNESIUM HYDROX 2400MG/30ML ORAL SUSPENSION 30 ML CUP PO PRN (11:37)
[2020-01-23] MEDS ORDERED: ONDANSETRON *ODT* 4 MG TABLET SL PRN (11:37)
[2020-01-23] MEDS ORDERED: METHOCARBAMOL 500 MG TABLET PO PRN (11:37)
[2020-01-23] MEDS ORDERED: ACETAMINOPHEN 325 MG TABLET (FP) PO PRN ×2 (11:37)
[2020-01-23] MEDS ORDERED: MAG HYDROX/AL HYDROX/SIMETH 30 ML UNIT-DOSE CUP PO PRN (11:37)
[2020-01-23] MEDS ORDERED: chlordiazePOXIDE HCL 25 MG CAPSULE PO PRN (11:37)
[2020-01-23] MEDS ORDERED: IBUPROFEN 400 MG TABLET (FP) PO PRN (11:37)
[2020-01-23] MEDS ORDERED: MENTHOL/PHENOL 1 EACH UD MM PRN (11:37)
[2020-01-23] MEDS ORDERED: MAGNESIUM CITRATE 300 ML BOTTLE PO PRN (11:37)
[2020-01-23] MEDS ORDERED: BISMUTH SUBSALICYLATE 262 MG/15 ML BTL PO PRN (11:37)
[2020-01-23] MEDS ORDERED: NICOTINE POLACRILEX 2 MG GUM BUC PRN (11:37)
[2020-01-23] MEDS ORDERED: hydrOXYzine PAMOATE 25 MG CAPSULE (FP) PO PRN (12:05)
[2020-01-23] MEDS: chlordiazePOXIDE HCL 25 MG CAPSULE PO SCH ×3 (12:38→22:10)
[2020-01-23] MEDS: LISINOPRIL 10 MG TABLET PO SCH (12:38)
[2020-01-23] MEDS ORDERED: hydrOXYzine PAMOATE 25 MG CAPSULE (FP) PO SCH (14:00)
[2020-01-23 14:48] LABS: HEMATOCRIT 39.1 % (35.4-49); HEMOGLOBIN 13.3 GM/dL (11.7-16.9); MCH 31.2 pg (25.7-33.7); MEAN CELL VOLUME 91.9 fl (80-96); MEAN PLT VOLUME 8.1 fl (7.5-11.1); PLATELET COUNT 206 K/MM3 (134-434); RBC 4.25 M/mm3 (4.00-5.60); RDW 15.1 % (11.9-15.9); WHITE BLOOD COUNT 4.6 K/mm3 (4.0-10.0)
[2020-01-23 15:49] LABS: BILIRUBIN,TOTAL 0.6 mg/dL (0.2-1); BLOOD UREA NITROGEN 14.6 mg/dL (7-18); CALCIUM 8.9 mg/dL (8.5-10.1); CREATININE 1.3 mg/dL (0.55-1.3); POTASSIUM 4.1 mmol/L (3.5-5.1); TOT PROT 7.8 g/dl (6.4-8.2)
[2020-01-23] MEDS ORDERED: diphenhydrAMINE HCL 25 MG CAPSULE (FP) PO ONE (21:58)
[2020-01-23] MEDS: THIAMINE HCL 100 MG TABLET (FP) PO SCH (22:10)
[2020-01-23] MEDS: ATORVASTATIN CA 10 MG TABLET (FP) PO SCH (22:10)
[2020-01-23] MEDS: diphenhydrAMINE HCL 50 MG CAPSULE PO SCH (22:11)
[2020-01-23] MEDS: MELATONIN 5 MG TABLETS PO SCH (23:18)
[2020-01-24] MEDS: chlordiazePOXIDE HCL 25 MG CAPSULE PO SCH ×4 (06:10→22:11)
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
--- NOTE | 2020-01-24 11:11 | PN ---
S CIWA - CIWA Score Nausea/Vomitin-No Nausea/No Vomiting Muscle Tremors: 3 Anxiety: 3 Agitation: 3 Paroxysmal Sweats: 3 Orientation: 0-Oriented Tacttile Disturbances: 0-None Auditory Disturbances: 0-None Visual Disturbances: 0-None Headache: 0-None Present CIWA-Ar Total Score: 12 BHS Progress Note (SOAP) Subjective: sweats shakes body aches Objective: 01/24/20 11:10 Vital Signs Temperature 97.3 F L 01/24/20 05:52 Pulse Rate 63 01/24/20 05:52 Respiratory Rate 18 01/24/20 05:52 Blood Pressure 121/83 01/24/20 05:52 O2 Sat by Pulse Oximetry (%) 97 01/24/20 05:52 Laboratory Tests 01/23/20 01/23/20 01/23/20 12:00 12:25 12:25 WBC 4.6 RBC 4.25 Hgb 13.3 Hct 39.1 MCV 91.9 MCH 31.2 MCHC 34.0 RDW 15.1 Plt Count 206 MPV 8.1 Sodium 140 Potassium 4.1 Chloride 106 Carbon Dioxide 29 Anion Gap 5 L BUN 14.6 Creatinine 1.3 Est GFR (CKD-EPI)AfAm 72.71 Est GFR (CKD-EPI)NonAf 62.73 POC Glucometer 119 Random Glucose 119 H Calcium 8.9 Total Bilirubin 0.6 AST 30 ALT 28 Alkaline Phosphatase 80 Total Protein 7.8 Albumin 4.0 Syphilis Serology COVID-19 (ALICE) 01/23/20 01/23/20 01/23/20 12:25 13:30 16:43 WBC RBC Hgb Hct MCV MCH MCHC RDW Plt Count MPV Sodium Potassium Chloride Carbon Dioxide Anion Gap BUN Creatinine Est GFR (CKD-EPI)AfAm Est GFR (CKD-EPI)NonAf POC Glucometer 97 Random Glucose Calcium Total Bilirubin AST ALT Alkaline Phosphatase Total Protein Albumin Syphilis Serology Non-reactive COVID-19 (ALICE) Not detected 01/24/20 06:09 WBC RBC Hgb Hct MCV MCH MCHC RDW Plt Count MPV Sodium Potassium Chloride Carbon Dioxide Anion Gap BUN Creatinine Est GFR (CKD-EPI)AfAm Est GFR (CKD-EPI)NonAf POC Glucometer 113 Random Glucose Calcium Total Bilirubin AST ALT Alkaline Phosphatase Total Protein Albumin Syphilis Serology COVID-19 (ALICE) labs noted aaox3 ambulating no acute distress Assessment: 01/24/20 11:11 withdrawals Plan: continue detox
[2020-01-24] MEDS: LISINOPRIL 10 MG TABLET PO SCH (11:51)
[2020-01-24] MEDS: PRENATAL VITAMINS W/ FOLIC ACID TABLET (FP) PO SCH (11:51)
[2020-01-24] MEDS: NICOTINE 7 MG/24 HOURS TOPICAL PATCH TD SCH (11:52)
[2020-01-24] MEDS ORDERED: diphenhydrAMINE HCL 25 MG CAPSULE (FP) PO ONE (21:58)
[2020-01-24] MEDS: diphenhydrAMINE HCL 50 MG CAPSULE PO SCH (22:10)
[2020-01-24] MEDS: QUEtiapine FUMARATE 200 MG TABLET PO SCH (22:11)
[2020-01-24] MEDS: ATORVASTATIN CA 10 MG TABLET (FP) PO SCH (22:11)
[2020-01-24] MEDS: THIAMINE HCL 100 MG TABLET (FP) PO SCH (22:13)
[2020-01-24] MEDS: MELATONIN 5 MG TABLETS PO SCH (23:40)
[2020-01-25] MEDS: chlordiazePOXIDE HCL 25 MG CAPSULE PO SCH ×4 (07:13→22:41)
--- NOTE | 2020-01-25 10:38 | PN ---
S CIWA - CIWA Score Nausea/Vomitin-No Nausea/No Vomiting Muscle Tremors: 3 Anxiety: 2 Agitation: 2 Paroxysmal Sweats: 1-Minimal Palms Moist Orientation: 0-Oriented Tacttile Disturbances: 0-None Auditory Disturbances: 0-None Visual Disturbances: 0-None Headache: 0-None Present CIWA-Ar Total Score: 8 BHS Progress Note (SOAP) Subjective: sweats tired Objective: 01/25/20 10:38 Vital Signs Temperature 97.8 F 01/25/20 08:50 Pulse Rate 66 01/25/20 08:50 Respiratory Rate 18 01/25/20 08:50 Blood Pressure 133/92 01/25/20 08:50 O2 Sat by Pulse Oximetry (%) 96 01/25/20 08:50 Laboratory Tests 01/23/20 01/23/20 01/23/20 12:00 12:25 12:25 WBC 4.6 RBC 4.25 Hgb 13.3 Hct 39.1 MCV 91.9 MCH 31.2 MCHC 34.0 RDW 15.1 Plt Count 206 MPV 8.1 Sodium 140 Potassium 4.1 Chloride 106 Carbon Dioxide 29 Anion Gap 5 L BUN 14.6 Creatinine 1.3 Est GFR (CKD-EPI)AfAm 72.71 Est GFR (CKD-EPI)NonAf 62.73 POC Glucometer 119 Random Glucose 119 H Calcium 8.9 Total Bilirubin 0.6 AST 30 ALT 28 Alkaline Phosphatase 80 Total Protein 7.8 Albumin 4.0 Syphilis Serology COVID-19 (ALICE) 01/23/20 01/23/20 01/23/20 12:25 13:30 16:43 WBC RBC Hgb Hct MCV MCH MCHC RDW Plt Count MPV Sodium Potassium Chloride Carbon Dioxide Anion Gap BUN Creatinine Est GFR (CKD-EPI)AfAm Est GFR (CKD-EPI)NonAf POC Glucometer 97 Random Glucose Calcium Total Bilirubin AST ALT Alkaline Phosphatase Total Protein Albumin Syphilis Serology Non-reactive COVID-19 (ALICE) Not detected 01/24/20 01/24/20 01/25/20 06:09 16:46 06:32 WBC RBC Hgb Hct MCV MCH MCHC RDW Plt Count MPV Sodium Potassium Chloride Carbon Dioxide Anion Gap BUN Creatinine Est GFR (CKD-EPI)AfAm Est GFR (CKD-EPI)NonAf POC Glucometer 113 141 107 Random Glucose Calcium Total Bilirubin AST ALT Alkaline Phosphatase Total Protein Albumin Syphilis Serology COVID-19 (ALICE) labs noted aaox3 ambulating no acute distress Assessment: 01/25/20 10:38 withdrawals Plan: continue detox
[2020-01-25] MEDS: LISINOPRIL 10 MG TABLET PO SCH (10:54)
[2020-01-25] MEDS: PRENATAL VITAMINS W/ FOLIC ACID TABLET (FP) PO SCH (10:54)
[2020-01-25] MEDS: NICOTINE 7 MG/24 HOURS TOPICAL PATCH TD SCH (10:56)
[2020-01-25] MEDS ORDERED: diphenhydrAMINE HCL 25 MG CAPSULE (FP) PO ONE (21:47)
[2020-01-25] MEDS: QUEtiapine FUMARATE 200 MG TABLET PO SCH (22:40)
[2020-01-25] MEDS: diphenhydrAMINE HCL 50 MG CAPSULE PO SCH (22:40)
[2020-01-25] MEDS: THIAMINE HCL 100 MG TABLET (FP) PO SCH (22:40)
[2020-01-25] MEDS: ATORVASTATIN CA 10 MG TABLET (FP) PO SCH (22:41)
[2020-01-25] MEDS: MELATONIN 5 MG TABLETS PO SCH (23:22)
[2020-01-26] MEDS ORDERED: chlordiazePOXIDE HCL 10 MG CAPSULE PO PRN
[2020-01-26] MEDS: chlordiazePOXIDE HCL 10 MG CAPSULE PO SCH ×4 (05:23→22:02)
[2020-01-26] MEDS: NICOTINE 7 MG/24 HOURS TOPICAL PATCH TD SCH (10:54)
[2020-01-26] MEDS: PRENATAL VITAMINS W/ FOLIC ACID TABLET (FP) PO SCH (10:54)
[2020-01-26] MEDS: LISINOPRIL 10 MG TABLET PO SCH (10:55)
--- NOTE | 2020-01-26 11:44 | PN ---
S CIWA - CIWA Score Nausea/Vomitin-Mild Nausea/No Vomiting Muscle Tremors: 2 Anxiety: 2 Agitation: 2 Paroxysmal Sweats: No Perspiration Orientation: 0-Oriented Tacttile Disturbances: 0-None Auditory Disturbances: 0-None Visual Disturbances: 0-None Headache: 1-Very Mild CIWA-Ar Total Score: 8 BHS Progress Note (SOAP) Subjective: alert,irritable,anxious,interrupted sleep,aching pain Objective: 01/26/20 13:20 Vital Signs Temperature 99.6 F 01/26/20 09:10 Pulse Rate 78 01/26/20 09:10 Respiratory Rate 18 01/26/20 09:10 Blood Pressure 92/50 L 01/26/20 09:10 O2 Sat by Pulse Oximetry (%) 95 01/26/20 09:10 Assessment: 01/26/20 13:20 withdrawal symptom Plan: continue detox librium regimen
[2020-01-26] MEDS ORDERED: diphenhydrAMINE HCL 25 MG CAPSULE (FP) PO ONE (21:32)
[2020-01-26] MEDS: THIAMINE HCL 100 MG TABLET (FP) PO SCH (22:01)
[2020-01-26] MEDS: diphenhydrAMINE HCL 50 MG CAPSULE PO SCH (22:01)
[2020-01-26] MEDS: QUEtiapine FUMARATE 200 MG TABLET PO SCH (22:02)
[2020-01-26] MEDS: MELATONIN 5 MG TABLETS PO SCH (22:02)
[2020-01-26] MEDS: ATORVASTATIN CA 10 MG TABLET (FP) PO SCH (22:02)
[2020-01-27] MEDS: chlordiazePOXIDE HCL 10 MG CAPSULE PO SCH ×2 (06:49→18:00)
[2020-01-27] MEDS: metFORMIN HCL 500 MG TABLET (FP) PO SCH (06:50)
[2020-01-27] MEDS: PRENATAL VITAMINS W/ FOLIC ACID TABLET (FP) PO SCH (10:57)
[2020-01-27] MEDS: LISINOPRIL 10 MG TABLET PO SCH (10:57)
[2020-01-27] MEDS: NICOTINE 7 MG/24 HOURS TOPICAL PATCH TD SCH (10:57)
--- NOTE | 2020-01-27 12:10 | PN ---
[facility] CIWA - CIWA Score Nausea/Vomitin-No Nausea/No Vomiting Muscle Tremors: None Anxiety: 2 Agitation: 1-Slight > Activity Paroxysmal Sweats: 1-Minimal Palms Moist Orientation: 0-Oriented Tacttile Disturbances: 0-None Auditory Disturbances: 0-None Visual Disturbances: 0-None Headache: 0-None Present CIWA-Ar Total Score: 4 BHS Progress Note (SOAP) Subjective: Complaints of mild anxiety and sweats. Objective: 01/27/20 12:06 Vital Signs 01/27/20 05:05 Temperature 97.1 F L Pulse Rate 76 Respiratory 18 Rate Blood Pressure 99/63 O2 Sat by Pulse 97 Oximetry (%) Laboratory Last Values WBC 4.6 K/mm3 (4.0-10.0) 01/23/20 12:25 RBC 4.25 M/mm3 (4.00-5.60) 01/23/20 12:25 Hgb 13.3 GM/dL (11.7-16.9) 01/23/20 12:25 Hct 39.1 % (35.4-49) 01/23/20 12:25 MCV 91.9 fl (80-96) 01/23/20 12:25 MCH 31.2 pg (25.7-33.7) 01/23/20 12:25 MCHC 34.0 g/dl (32.0-35.9) 01/23/20 12:25 RDW 15.1 % (11.9-15.9) 01/23/20 12:25 Plt Count 206 K/MM3 (134-434) 01/23/20 12:25 MPV 8.1 fl (7.5-11.1) 01/23/20 12:25 Sodium 140 mmol/L (136-145) 01/23/20 12:25 Potassium 4.1 mmol/L (3.5-5.1) 01/23/20 12:25 Chloride 106 mmol/L (98-107) 01/23/20 12:25 Carbon Dioxide 29 mmol/L (21-32) 01/23/20 12:25 Anion Gap 5 MMOL/L (8-16) L 01/23/20 12:25 BUN 14.6 mg/dL (7-18) 01/23/20 12:25 Creatinine 1.3 mg/dL (0.55-1.3) 01/23/20 12:25 Est GFR (CKD-EPI)AfAm 72.71 01/23/20 12:25 Est GFR (CKD-EPI)NonAf 62.73 01/23/20 12:25 POC Glucometer 101 UNITS (80-120) 01/27/20 06:49 Random Glucose 119 mg/dL (74-106) H 01/23/20 12:25 Calcium 8.9 mg/dL (8.5-10.1) 01/23/20 12:25 Total Bilirubin 0.6 mg/dL (0.2-1) 01/23/20 12:25 AST 30 U/L (15-37) 01/23/20 12:25 ALT 28 U/L (13-61) 01/23/20 12:25 Alkaline Phosphatase 80 U/L (45-117) 01/23/20 12:25 Total Protein 7.8 g/dl (6.4-8.2) 01/23/20 12:25 Albumin 4.0 g/dl (3.4-5.0) 01/23/20 12:25 Syphilis Serology Non-reactive (NONREACTIVE) 01/23/20 12:25 COVID-19 (ALICE) Not detected (Not Detected) 01/23/20 13:30 Labs noted. Assessment: 01/27/20 12:07 Patient seen and examined, alert and oriented x3, in acute respiratory distress. Full ROM, ambulatory in the unit without assistance. Skin warm to touch without lesions. Mild withdrawal symptoms. Plan: Continue detox protocol. D/c home tomorrow.
[2020-01-27] MEDS ORDERED: diphenhydrAMINE HCL 25 MG CAPSULE (FP) PO ONE (21:47)
[2020-01-27] MEDS: diphenhydrAMINE HCL 50 MG CAPSULE PO SCH (22:01)
[2020-01-27] MEDS: ATORVASTATIN CA 10 MG TABLET (FP) PO SCH (22:02)
[2020-01-27] MEDS: QUEtiapine FUMARATE 200 MG TABLET PO SCH (22:02)
[2020-01-27] MEDS: THIAMINE HCL 100 MG TABLET (FP) PO SCH (22:02)
[2020-01-27] MEDS: MELATONIN 5 MG TABLETS PO SCH (22:04)
[2020-01-28] MEDS ORDERED: chlordiazePOXIDE HCL 10 MG CAPSULE PO ONE (05:00)
[2020-01-28] MEDS: metFORMIN HCL 500 MG TABLET (FP) PO SCH (07:19)
[2020-01-28 09:42] VITALS: BP 137/94; PULSE 92; TEMP 98.1
--- NOTE | 2020-01-28 10:18 | DS ---
[facility] Detox Discharge Summary Admission Date: 01/23/20 Discharge Date: 01/28/20 - History Present History: Alcohol Dependence Additional Comments: Detox protocol completed without any complications. Patient is alert and oriented x3, in no acute respiratory distress. Full ROM, ambulating in unit without assistance. Skin warm to touch without any lesion. Patient stable for discharge today to [facility] rehab. 30 day supply of chronic medications sent to [facility]. Pertinent Past History: History of Asthma, DM, HTN, HLD, alcohol and nicotine use disorder. - Physical Exam Results Vital Signs: Vital Signs Temperature 98.1 F 01/28/20 08:41 Pulse Rate 92 H 01/28/20 08:41 Respiratory Rate 18 01/28/20 08:41 Blood Pressure 137/94 01/28/20 08:41 O2 Sat by Pulse Oximetry (%) 98 01/28/20 05:10 Vital Signs 01/28/20 01/28/20 01/28/20 05:10 07:30 08:41 Temperature 97.1 F L 98.1 F Pulse Rate 86 86 92 H Respiratory 16 18 18 Rate Blood Pressure 97/60 125/95 137/94 O2 Sat by Pulse 98 Oximetry (%) Laboratory Last Values WBC 4.6 K/mm3 (4.0-10.0) 01/23/20 12:25 RBC 4.25 M/mm3 (4.00-5.60) 01/23/20 12:25 Hgb 13.3 GM/dL (11.7-16.9) 01/23/20 12:25 Hct 39.1 % (35.4-49) 01/23/20 12:25 MCV 91.9 fl (80-96) 01/23/20 12:25 MCH 31.2 pg (25.7-33.7) 01/23/20 12:25 MCHC 34.0 g/dl (32.0-35.9) 01/23/20 12:25 RDW 15.1 % (11.9-15.9) 01/23/20 12:25 Plt Count 206 K/MM3 (134-434) 01/23/20 12:25 MPV 8.1 fl (7.5-11.1) 01/23/20 12:25 Sodium 140 mmol/L (136-145) 01/23/20 12:25 Potassium 4.1 mmol/L (3.5-5.1) 01/23/20 12:25 Chloride 106 mmol/L (98-107) 01/23/20 12:25 Carbon Dioxide 29 mmol/L (21-32) 01/23/20 12:25 Anion Gap 5 MMOL/L (8-16) L 01/23/20 12:25 BUN 14.6 mg/dL (7-18) 01/23/20 12:25 Creatinine 1.3 mg/dL (0.55-1.3) 01/23/20 12:25 Est GFR (CKD-EPI)AfAm 72.71 01/23/20 12:25 Est GFR (CKD-EPI)NonAf 62.73 01/23/20 12:25 POC Glucometer 118 UNITS (80-120) 01/28/20 05:37 Random Glucose 119 mg/dL (74-106) H 01/23/20 12:25 Calcium 8.9 mg/dL (8.5-10.1) 01/23/20 12:25 Total Bilirubin 0.6 mg/dL (0.2-1) 01/23/20 12:25 AST 30 U/L (15-37) 01/23/20 12:25 ALT 28 U/L (13-61) 01/23/20 12:25 Alkaline Phosphatase 80 U/L (45-117) 01/23/20 12:25 Total Protein 7.8 g/dl (6.4-8.2) 01/23/20 12:25 Albumin 4.0 g/dl (3.4-5.0) 01/23/20 12:25 Syphilis Serology Non-reactive (NONREACTIVE) 01/23/20 12:25 COVID-19 (ALICE) Not detected (Not Detected) 01/23/20 13:30 Labs noted. Pertinent Admission Physical Exam Findings: Withdrawal symptoms. - Treatment Hospital Course: Detox Protocol Followed, Detoxed Safely, Responded well, Disch arged Condition Good, Rehab Referral Accepted Patient has Accepted a Rehab Referral to: [facility] - Medication Discharge Medications: Ambulatory Orders Albuterol Sulfate Inhaler - [Ventolin HFA Inhaler -] 2 puff IH Q4H PRN #1 inhaler 01/28/20 Albuterol Sulfate Inhaler - [Ventolin HFA Inhaler -] 2 puff IH Q4H PRN #1 inhaler 01/28/20 Atorvastatin Ca [Lipitor] 10 mg PO HS #30 tablet 01/28/20 Atorvastatin Ca [Lipitor] 10 mg PO HS 30 Days #30 tablet 01/28/20 Budesonide/Formeterol Fumarate [SYMBICORT 160/4.5mcg -] 2 puff IH BID #1 inhaler 01/28/20 Diphenhydramine [Benadryl -] 100 mg PO HS 30 Days #30 cap 01/28/20 Lisinopril 10 mg PO DAILY 30 Days #30 tablet 01/28/20 Lisinopril [Prinivil] 10 mg PO DAILY #30 tablet 01/28/20 Metformin HCl [Glucophage] 500 mg PO DAILY 30 Days #30 tablet 01/28/20 metFORMIN HCL [Glucophage -] 500 mg PO DAILY@0700 #30 tablet 01/28/20 - Diagnosis (1) Alcohol dependence with uncomplicated withdrawal Current Visit: Yes Status: Acute (2) DM Diabetes mellitus type 2 Current Visit: Yes Status: Chronic (3) Hypercholesterolemia Current Visit: No Status: Acute (4) Asthma Current Visit: No Status: Chronic (5) Essential hypertension Current Visit: No Status: Chronic (6) History of asthma Current Visit: No Status: Chronic - AMA Did Patient Leave Against Medical Advice: No
== END 2020-01-28 09:59 | disposition home or self-care (01) | DRG 774 ==
LOC: YASAS 10:47 → Y6N 11:40
PROVIDERS: ADMIT Allergy & Immunology; ATTEND Allergy & Immunology
PROC: HZ2ZZZZ Detoxification Services for Substance Abuse Treatment (ICD-10-PCS; principal; 2020-01-23)
DX: F10.230 Alcohol dependence with withdrawal, uncomplicated (principal); F14.20 Cocaine dependence, uncomplicated; F17.211 Nicotine dependence, cigarettes, in remission; F19.282 Other psychoactive substance dependence with psychoactive substance-induced sleep disorder; F19.24 Other psychoactive substance dependence with psychoactive substance-induced mood disorder; F32.9 Major depressive disorder, single episode, unspecified; F43.10 Post-traumatic stress disorder, unspecified; E78.5 Hyperlipidemia, unspecified; J45.909 Unspecified asthma, uncomplicated; I10 Essential (primary) hypertension; E11.9 Type 2 diabetes mellitus without complications; Z79.84 Long term (current) use of oral hypoglycemic drugs; Z87.828 Personal history of other (healed) physical injury and trauma; Z98.890 Other specified postprocedural states; Z91.5 Personal history of self-harm; Z90.13 Acquired absence of bilateral breasts and nipples; Z91.018 Allergy to other foods
CPT/HCPCS: 36415; 80053; 82962; 85027; 86780; C9803; U0003

== ENCOUNTER 2020-05-04 08:37 | Inpatient (IN) | payer OTHER ==
[2020-05-04 09:00] VITALS: BMI 33.1
[2020-05-04] MEDS ORDERED: MAGNESIUM CITRATE 300 ML BOTTLE PO PRN (09:38)
[2020-05-04] MEDS ORDERED: ONDANSETRON *ODT* 4 MG TABLET SL PRN (09:38)
[2020-05-04] MEDS ORDERED: IBUPROFEN 400 MG TABLET (FP) PO PRN (09:38)
[2020-05-04] MEDS ORDERED: ACETAMINOPHEN 325 MG TABLET (FP) PO PRN ×2 (09:38)
[2020-05-04] MEDS ORDERED: MENTHOL/PHENOL 1 EACH UD MM PRN (09:38)
[2020-05-04] MEDS ORDERED: MAGNESIUM HYDROX 2400MG/30ML ORAL SUSPENSION 30 ML CUP PO PRN (09:38)
[2020-05-04] MEDS ORDERED: METHOCARBAMOL 500 MG TABLET PO PRN (09:38)
[2020-05-04] MEDS ORDERED: NICOTINE POLACRILEX 2 MG GUM BUC PRN (09:38)
[2020-05-04] MEDS ORDERED: MAG HYDROX/AL HYDROX/SIMETH 30 ML UNIT-DOSE CUP PO PRN (09:38)
[2020-05-04] MEDS ORDERED: chlordiazePOXIDE HCL 25 MG CAPSULE PO PRN (09:38)
[2020-05-04] MEDS ORDERED: BISMUTH SUBSALICYLATE 524 MG/30 ML UD PO PRN (09:38)
[2020-05-04] MEDS ORDERED: ALBUTEROL SO4 HFA INHALER IH PRN (09:43)
[2020-05-04] MEDS: chlordiazePOXIDE HCL 25 MG CAPSULE PO SCH ×3 (11:21→23:09)
[2020-05-04] MEDS: NICOTINE 7 MG/24 HOURS TOPICAL PATCH TD SCH (11:21)
[2020-05-04] MEDS: PRENATAL VITAMINS W/ FOLIC ACID TABLET (FP) PO SCH (11:21)
[2020-05-04] MEDS: LISINOPRIL 10 MG TABLET PO SCH (11:21)
[2020-05-04] MEDS: hydrOXYzine PAMOATE 25 MG CAPSULE (FP) PO SCH ×4 (11:25→23:08)
[2020-05-04] MEDS: BUDESONIDE/FORMETEROL FUMARATE 160/4.5 mcg INHALER IH SCH ×2 (11:27→23:08)
[2020-05-04 12:48] LABS: HEMATOCRIT 40.5 % (35.4-49); HEMOGLOBIN 13.6 GM/dL (11.7-16.9); MCHC 33.5 g/dl (32.0-35.9); MEAN CELL VOLUME 92.4 fl (80-96); MEAN PLT VOLUME 8.3 fl (7.5-11.1); PLATELET COUNT 235 K/MM3 (134-434); RBC 4.39 M/mm3 (4.00-5.60); WHITE BLOOD COUNT 5.5 K/mm3 (4.0-10.0)
[2020-05-04 12:52] LABS: CALCIUM 8.8 mg/dL (8.5-10.1); POTASSIUM 3.9 mmol/L (3.5-5.1)
[2020-05-04 12:53] LABS: ALBUMIN 3.7 g/dl (3.4-5.0); BLOOD UREA NITROGEN 17.6 mg/dL (7-18)
[2020-05-04 12:56] LABS: CREATININE 1.4 mg/dL (0.55-1.3)
[2020-05-04 12:58] LABS: BILIRUBIN,TOTAL 0.4 mg/dL (0.2-1); TOT PROT 7.1 g/dl (6.4-8.2)
[2020-05-04] MEDS: metFORMIN HCL 500 MG TABLET (FP) PO SCH (17:00)
[2020-05-04] MEDS: ATORVASTATIN CA 10 MG TABLET (FP) PO SCH (23:07)
[2020-05-04] MEDS: MELATONIN 5 MG TABLETS PO SCH (23:08)
[2020-05-04] MEDS: THIAMINE HCL 100 MG TABLET (FP) PO SCH (23:08)
[2020-05-05] MEDS: chlordiazePOXIDE HCL 25 MG CAPSULE PO SCH ×4 (06:51→22:25)
[2020-05-05] MEDS: hydrOXYzine PAMOATE 25 MG CAPSULE (FP) PO SCH ×5 (06:51→22:49)
[2020-05-05] MEDS: metFORMIN HCL 500 MG TABLET (FP) PO SCH ×2 (06:56→17:41)
[2020-05-05] MEDS: NICOTINE 7 MG/24 HOURS TOPICAL PATCH TD SCH (10:25)
[2020-05-05] MEDS: LISINOPRIL 10 MG TABLET PO SCH (10:25)
[2020-05-05] MEDS: PRENATAL VITAMINS W/ FOLIC ACID TABLET (FP) PO SCH (10:25)
[2020-05-05] MEDS: BUDESONIDE/FORMETEROL FUMARATE 160/4.5 mcg INHALER IH SCH ×2 (10:29→21:07)
[2020-05-05 12:01] LABS: HIV INTERPRETATION NEGATIVE (NEGATIVE)
[2020-05-05] MEDS ORDERED: cloNIDine HCL 0.1 MG TABLET PO PRN (13:25)
[2020-05-05] MEDS: THIAMINE HCL 100 MG TABLET (FP) PO SCH (21:06)
[2020-05-05] MEDS: QUEtiapine FUMARATE 300 MG TABLET PO SCH (21:06)
[2020-05-05] MEDS: ATORVASTATIN CA 10 MG TABLET (FP) PO SCH (21:06)
[2020-05-05] MEDS: MELATONIN 5 MG TABLETS PO SCH (21:06)
[2020-05-06] MEDS: chlordiazePOXIDE HCL 25 MG CAPSULE PO SCH ×2 (07:00→11:00)
[2020-05-06] MEDS: hydrOXYzine PAMOATE 25 MG CAPSULE (FP) PO SCH ×2 (07:00→11:00)
[2020-05-06] MEDS: metFORMIN HCL 500 MG TABLET (FP) PO SCH ×2 (08:00→18:27)
[2020-05-06] MEDS: LISINOPRIL 10 MG TABLET PO SCH (11:00)
[2020-05-06] MEDS: NICOTINE 7 MG/24 HOURS TOPICAL PATCH TD SCH (11:00)
[2020-05-06] MEDS: PRENATAL VITAMINS W/ FOLIC ACID TABLET (FP) PO SCH (11:00)
[2020-05-06] MEDS: BUDESONIDE/FORMETEROL FUMARATE 160/4.5 mcg INHALER IH SCH ×2 (11:00→22:43)
[2020-05-06] MEDS ORDERED: hydrOXYzine PAMOATE 25 MG CAPSULE (FP) PO PRN (13:44)
[2020-05-06] MEDS: chlordiazePOXIDE HCL 10 MG CAPSULE PO SCH ×2 (18:28→22:42)
[2020-05-06] MEDS: QUEtiapine FUMARATE 300 MG TABLET PO SCH (21:03)
[2020-05-06] MEDS: ATORVASTATIN CA 10 MG TABLET (FP) PO SCH (22:40)
[2020-05-06] MEDS: THIAMINE HCL 100 MG TABLET (FP) PO SCH (22:40)
[2020-05-06] MEDS: MELATONIN 5 MG TABLETS PO SCH (22:43)
[2020-05-07] MEDS ORDERED: chlordiazePOXIDE HCL 10 MG CAPSULE PO PRN
[2020-05-07] MEDS: metFORMIN HCL 500 MG TABLET (FP) PO SCH ×2 (06:12→18:13)
[2020-05-07] MEDS: chlordiazePOXIDE HCL 10 MG CAPSULE PO SCH ×4 (06:12→22:15)
[2020-05-07] MEDS: PRENATAL VITAMINS W/ FOLIC ACID TABLET (FP) PO SCH (12:05)
[2020-05-07] MEDS: NICOTINE 7 MG/24 HOURS TOPICAL PATCH TD SCH (12:05)
[2020-05-07] MEDS: LISINOPRIL 10 MG TABLET PO SCH (12:09)
[2020-05-07] MEDS: BUDESONIDE/FORMETEROL FUMARATE 160/4.5 mcg INHALER IH SCH ×2 (12:09→22:10)
[2020-05-07] MEDS: QUEtiapine FUMARATE 300 MG TABLET PO SCH (21:05)
[2020-05-07] MEDS: ATORVASTATIN CA 10 MG TABLET (FP) PO SCH (22:09)
[2020-05-07] MEDS: MELATONIN 5 MG TABLETS PO SCH (22:10)
[2020-05-07] MEDS: THIAMINE HCL 100 MG TABLET (FP) PO SCH (22:10)
[2020-05-08] MEDS: chlordiazePOXIDE HCL 10 MG CAPSULE PO SCH ×2 (07:27→18:55)
[2020-05-08] MEDS: metFORMIN HCL 500 MG TABLET (FP) PO SCH ×2 (07:29→18:54)
[2020-05-08] MEDS: LISINOPRIL 10 MG TABLET PO SCH (10:43)
[2020-05-08] MEDS: NICOTINE 7 MG/24 HOURS TOPICAL PATCH TD SCH (10:43)
[2020-05-08] MEDS: PRENATAL VITAMINS W/ FOLIC ACID TABLET (FP) PO SCH (10:43)
[2020-05-08] MEDS: BUDESONIDE/FORMETEROL FUMARATE 160/4.5 mcg INHALER IH SCH ×2 (10:43→22:19)
[2020-05-08] MEDS: QUEtiapine FUMARATE 300 MG TABLET PO SCH (21:20)
[2020-05-08] MEDS: ATORVASTATIN CA 10 MG TABLET (FP) PO SCH (22:19)
[2020-05-08] MEDS: MELATONIN 5 MG TABLETS PO SCH (22:19)
[2020-05-08] MEDS: THIAMINE HCL 100 MG TABLET (FP) PO SCH (22:19)
[2020-05-09] MEDS ORDERED: chlordiazePOXIDE HCL 10 MG CAPSULE PO ONE (05:00)
[2020-05-09] MEDS: metFORMIN HCL 500 MG TABLET (FP) PO SCH (06:19)
[2020-05-09 09:32] VITALS: BP 141/90; PULSE 107; TEMP 97.3
[2020-05-09] MEDS: NICOTINE 7 MG/24 HOURS TOPICAL PATCH TD SCH (09:34)
[2020-05-09] MEDS: LISINOPRIL 10 MG TABLET PO SCH (09:34)
[2020-05-09] MEDS: PRENATAL VITAMINS W/ FOLIC ACID TABLET (FP) PO SCH (09:34)
[2020-05-09] MEDS: BUDESONIDE/FORMETEROL FUMARATE 160/4.5 mcg INHALER IH SCH (09:34)
== END 2020-05-09 12:06 | disposition home or self-care (01) | DRG 774 ==
LOC: YASAS 08:37 → Y6N 09:32
PROVIDERS: ADMIT Allergy & Immunology; ATTEND Allergy & Immunology
PROC: HZ2ZZZZ Detoxification Services for Substance Abuse Treatment (ICD-10-PCS; principal; 2020-05-04)
DX: F10.230 Alcohol dependence with withdrawal, uncomplicated (principal); F14.20 Cocaine dependence, uncomplicated; F17.210 Nicotine dependence, cigarettes, uncomplicated; F19.24 Other psychoactive substance dependence with psychoactive substance-induced mood disorder; F19.282 Other psychoactive substance dependence with psychoactive substance-induced sleep disorder; F33.9 Major depressive disorder, recurrent, unspecified; F43.10 Post-traumatic stress disorder, unspecified; I10 Essential (primary) hypertension; E78.5 Hyperlipidemia, unspecified; E11.9 Type 2 diabetes mellitus without complications; G47.00 Insomnia, unspecified; J45.909 Unspecified asthma, uncomplicated; D17.9 Benign lipomatous neoplasm, unspecified; Z79.84 Long term (current) use of oral hypoglycemic drugs; Z91.013 Allergy to seafood; Z91.018 Allergy to other foods
CPT/HCPCS: 36415; 80053; 82962; 85027; 86780; 87389; C9803; U0003

== ENCOUNTER 2021-01-21 10:41 | Inpatient (IN) | payer OTHER ==
[2021-01-21 12:05] VITALS: BMI 34.7
[2021-01-21] MEDS ORDERED: FLU VACC QS2021-22(6MOS UP)/PF 60 MCG/0.5 ML SYRINGE IM ONE (12:23)
[2021-01-21] MEDS ORDERED: IBUPROFEN 400 MG TABLET (FP) PO PRN (12:54)
[2021-01-21] MEDS ORDERED: ACETAMINOPHEN 325 MG TABLET (FP) PO PRN ×2 (12:54)
[2021-01-21] MEDS ORDERED: BISMUTH SUBSALICYLATE 524 MG/30 ML PO PRN (12:54)
[2021-01-21] MEDS ORDERED: ONDANSETRON *ODT* 4 MG TABLET SL PRN (12:54)
[2021-01-21] MEDS ORDERED: diazePAM 5 MG TABLET PO PRN (12:54)
[2021-01-21] MEDS ORDERED: MAGNESIUM CITRATE 300 ML BOTTLE PO PRN (12:54)
[2021-01-21] MEDS ORDERED: MAG HYDROX/AL HYDROX/SIMETH 30 ML UNIT-DOSE CUP PO PRN (12:54)
[2021-01-21] MEDS ORDERED: MENTHOL/PHENOL 1 EACH UD MM PRN (12:54)
[2021-01-21] MEDS ORDERED: NICOTINE 10 MG CARTRIDGE (INHALER) IH PRN (12:54)
[2021-01-21] MEDS ORDERED: MAGNESIUM HYDROX 2400MG/30ML ORAL SUSPENSION 30 ML CUP PO PRN (12:54)
[2021-01-21] MEDS ORDERED: diazePAM 5 MG TABLET PO ONE (14:15)
[2021-01-21 14:35] LABS: HEMATOCRIT 39.4 % (35.4-49); HEMOGLOBIN 13.4 GM/dL (11.7-16.9); MCH 30.9 pg (25.7-33.7); MCHC 34.1 g/dl (32.0-35.9); MEAN CELL VOLUME 90.6 fl (80-96); MEAN PLT VOLUME 7.4 fl (7.5-11.1); PLATELET COUNT 241 10^3/uL (134-434); RBC 4.35 M/mm3 (4.00-5.60); RDW 14.6 % (11.9-15.9); WHITE BLOOD COUNT 6.6 K/mm3 (4.0-10.0)
[2021-01-21 14:41] LABS: CALCIUM 9.3 mg/dL (8.5-10.1)
[2021-01-21 14:42] LABS: ALBUMIN 4.2 g/dl (3.4-5.0); BLOOD UREA NITROGEN 16.4 mg/dL (7-18)
[2021-01-21 14:45] LABS: CREATININE 1.4 mg/dL (0.55-1.3)
[2021-01-21 14:46] LABS: BILIRUBIN,TOTAL 0.8 mg/dL (0.2-1)
[2021-01-21 14:47] LABS: TOT PROT 8.2 g/dl (6.4-8.2)
[2021-01-21] MEDS: hydrOXYzine PAMOATE 25 MG CAPSULE (FP) PO SCH ×3 (14:55→22:34)
[2021-01-21] MEDS: PRENATAL VITAMINS W/ FOLIC ACID TABLET (FP) PO SCH (14:55)
[2021-01-21] MEDS ORDERED: ALBUTEROL SO4 HFA INHALER IH PRN (15:20)
[2021-01-21] MEDS: metFORMIN HCL 500 MG TABLET (FP) PO SCH (18:11)
[2021-01-21] MEDS: diazePAM 5 MG TABLET PO SCH ×2 (18:12→22:35)
[2021-01-21] MEDS: METHOCARBAMOL 500 MG TABLET PO PRN (18:13)
[2021-01-21] MEDS: BUDESONIDE/FORMETEROL FUMARATE 160/4.5 mcg INHALER IH SCH (22:33)
[2021-01-21] MEDS: ATORVASTATIN CA 10 MG TABLET (FP) PO SCH (22:34)
[2021-01-21] MEDS: THIAMINE HCL 100 MG TABLET (FP) PO SCH (22:34)
[2021-01-21] MEDS: MELATONIN 5 MG TABLETS PO SCH (22:34)
[2021-01-21] MEDS: traZODone HCL 50 MG TABLET (FP) PO SCH (22:34)
[2021-01-21] MEDS: QUEtiapine FUMARATE 200 MG TABLET PO SCH (22:34)
[2021-01-22] MEDS: metFORMIN HCL 500 MG TABLET (FP) PO SCH ×2 (07:02→17:39)
[2021-01-22] MEDS: hydrOXYzine PAMOATE 25 MG CAPSULE (FP) PO SCH ×5 (07:02→22:05)
[2021-01-22] MEDS: diazePAM 5 MG TABLET PO SCH ×4 (07:23→22:05)
[2021-01-22] MEDS: BUDESONIDE/FORMETEROL FUMARATE 160/4.5 mcg INHALER IH SCH ×2 (10:12→22:04)
[2021-01-22] MEDS: PRENATAL VITAMINS W/ FOLIC ACID TABLET (FP) PO SCH (10:13)
[2021-01-22] MEDS: LISINOPRIL 10 MG TABLET PO SCH (10:15)
[2021-01-22] MEDS ORDERED: FLU VACC QS2021-22(6MOS UP)/PF 60 MCG/0.5 ML SYRINGE IM ONE (12:00)
[2021-01-22] MEDS: THIAMINE HCL 100 MG TABLET (FP) PO SCH (22:04)
[2021-01-22] MEDS: traZODone HCL 50 MG TABLET (FP) PO SCH (22:04)
[2021-01-22] MEDS: ATORVASTATIN CA 10 MG TABLET (FP) PO SCH (22:05)
[2021-01-22] MEDS: MELATONIN 5 MG TABLETS PO SCH (22:05)
[2021-01-22] MEDS: QUEtiapine FUMARATE 200 MG TABLET PO SCH (22:05)
[2021-01-23] MEDS: diazePAM 5 MG TABLET PO SCH ×3 (06:15→22:32)
[2021-01-23] MEDS: metFORMIN HCL 500 MG TABLET (FP) PO SCH ×2 (06:15→17:59)
[2021-01-23] MEDS: hydrOXYzine PAMOATE 25 MG CAPSULE (FP) PO SCH ×2 (06:15→11:15)
[2021-01-23] MEDS ORDERED: hydrOXYzine PAMOATE 25 MG CAPSULE (FP) PO PRN (10:41)
[2021-01-23 11:06] LABS: CALCIUM 8.6 mg/dL (8.5-10.1)
[2021-01-23 11:07] LABS: BLOOD UREA NITROGEN 24.2 mg/dL (7-18)
[2021-01-23 11:10] LABS: CREATININE 1.2 mg/dL (0.55-1.3); PHOSPHOROUS 3.7 mg/dL (2.5-4.9)
[2021-01-23] MEDS: PRENATAL VITAMINS W/ FOLIC ACID TABLET (FP) PO SCH (11:14)
[2021-01-23] MEDS: LISINOPRIL 10 MG TABLET PO SCH (11:15)
[2021-01-23] MEDS: BUDESONIDE/FORMETEROL FUMARATE 160/4.5 mcg INHALER IH SCH ×2 (11:15→23:37)
[2021-01-23 11:18] LABS: ALBUMIN 3.1 g/dl (3.4-5.0)
[2021-01-23] MEDS: QUEtiapine FUMARATE 200 MG TABLET PO SCH (22:31)
[2021-01-23] MEDS: traZODone HCL 50 MG TABLET (FP) PO SCH (22:31)
[2021-01-23] MEDS: MELATONIN 5 MG TABLETS PO SCH (22:31)
[2021-01-23] MEDS: THIAMINE HCL 100 MG TABLET (FP) PO SCH (22:32)
[2021-01-23] MEDS: ATORVASTATIN CA 10 MG TABLET (FP) PO SCH (22:32)
[2021-01-23] MEDS: METHOCARBAMOL 500 MG TABLET PO PRN (22:34)
[2021-01-24] MEDS: diazePAM 5 MG TABLET PO SCH ×2 (06:20→17:59)
[2021-01-24] MEDS: metFORMIN HCL 500 MG TABLET (FP) PO SCH ×3 (06:20→17:59)
[2021-01-24] MEDS: BUDESONIDE/FORMETEROL FUMARATE 160/4.5 mcg INHALER IH SCH ×2 (10:30→22:04)
[2021-01-24] MEDS: PRENATAL VITAMINS W/ FOLIC ACID TABLET (FP) PO SCH (10:30)
[2021-01-24] MEDS: LISINOPRIL 10 MG TABLET PO SCH (10:31)
[2021-01-24] MEDS: MELATONIN 5 MG TABLETS PO SCH (22:04)
[2021-01-24] MEDS: ATORVASTATIN CA 10 MG TABLET (FP) PO SCH (22:04)
[2021-01-24] MEDS: QUEtiapine FUMARATE 200 MG TABLET PO SCH (22:04)
[2021-01-24] MEDS: THIAMINE HCL 100 MG TABLET (FP) PO SCH (22:04)
[2021-01-24] MEDS: traZODone HCL 50 MG TABLET (FP) PO SCH (22:04)
[2021-01-25] MEDS ORDERED: diazePAM 5 MG TABLET PO ONE (06:00)
[2021-01-25] MEDS: metFORMIN HCL 500 MG TABLET (FP) PO SCH (06:14)
[2021-01-25 09:27] VITALS: BP 106/73; PULSE 86; TEMP 97.7
[2021-01-25] MEDS: PRENATAL VITAMINS W/ FOLIC ACID TABLET (FP) PO SCH (11:05)
[2021-01-25] MEDS: BUDESONIDE/FORMETEROL FUMARATE 160/4.5 mcg INHALER IH SCH (11:05)
[2021-01-25] MEDS: LISINOPRIL 10 MG TABLET PO SCH (11:05)
== END 2021-01-25 10:00 | disposition home or self-care (01) | DRG 774 ==
LOC: YASAS 10:41 → Y3N 12:41
PROVIDERS: ADMIT Allergy & Immunology; ATTEND Allergy & Immunology
PROC: HZ2ZZZZ Detoxification Services for Substance Abuse Treatment (ICD-10-PCS; principal; 2021-01-21)
DX: F10.230 Alcohol dependence with withdrawal, uncomplicated (principal); F14.20 Cocaine dependence, uncomplicated; F19.24 Other psychoactive substance dependence with psychoactive substance-induced mood disorder; F43.10 Post-traumatic stress disorder, unspecified; F32.9 Major depressive disorder, single episode, unspecified; G47.00 Insomnia, unspecified; E78.5 Hyperlipidemia, unspecified; E11.9 Type 2 diabetes mellitus without complications; Z79.4 Long term (current) use of insulin; I10 Essential (primary) hypertension; J45.909 Unspecified asthma, uncomplicated; R79.89 Other specified abnormal findings of blood chemistry; Z87.828 Personal history of other (healed) physical injury and trauma; Z56.0 Unemployment, unspecified; Z59.00 Homelessness unspecified; Z91.013 Allergy to seafood; Z91.018 Allergy to other foods
CPT/HCPCS: 36415; 80053; 80069; 82962; 85027; 86780; C9803; U0003; U0005